=== PATIENT | male | born 1965 | race Caucasian/White ===

== ENCOUNTER 2018-10-07 13:04 | Inpatient (IN) | payer OTHER ==
[2018-10-07 13:23] VITALS: BMI 28.9
--- NOTE | 2018-10-07 14:26 | HP ---
CIWA Score Nausea/Vomitin Muscle Tremors: 3 Anxiety: 4-Mod. Anxious/Guarded Agitation: 1-Slight > Activity Paroxysmal Sweats: No Perspiration Orientation: 0-Oriented Tacttile Disturbances: 0-None Auditory Disturbances: 0-None Visual Disturbances: 2-Mild Sensitivity Headache: 0-None Present CIWA-Ar Total Score: 13 - Admission Criteria OASAS Guidelines: Admission for Medically Managed Detox: Requires at least one of the followin. CIWA greater than 12 2. Seizures within the past 24 hours 3. Delirium tremens within the past 24 hours 4. Hallucinations within the past 24 hours 5. Acute intervention needed for co occurring medical disorder 6. Acute intervention needed for co occurring psychiatric disorder 7. Severe withdrawal that cannot be handled at a lower level of care (continued vomiting, continued diarrhea, abnormal vital signs) requiring intravenous medication and/or fluids 8. Patient presents the following: CIWA greater than 12 Admission Criteria Met: Admission criteria met Admission ROS BHS - HPI Allergies/Adverse Reactions: Allergies Allergy/AdvReac Type Severity Reaction Status Date / Time No Known Allergies Allergy Verified 10/07/18 15:55 History of Present Illness: patient here requesting detox from etoh use reports 10-15 beers/day x almost 2 years , 2-3 pints at times , starts drinking in the mornings , reports uncomfortable if not drinking . denies seizures , + blackouts , + falls while intoxicated most recently 2 mo ago , hit head against wooden table , prior detox " a long time ago " sosa 0.211 latest use this morning tobacco : 1 ppd since age 15 PMHX : htn on no meds , DVT ( takes xarelto sporadically " when I am not drinking " ) Psych : bipolar d/o Pshx : denies - Ebola screening Have you traveled outside of the country in the last 21 days: No Have you had contact with anyone from an Ebola affected area: No Have you been sick,other than usual withdrawal symptoms: No Do you have a fever: No - Review of Systems Constitutional: See HPI EENT: reports: Other (reading glasses , denies dysphagia) Respiratory: reports: No Symptoms reported Cardiac: reports: No Symptoms Reported GI: reports: See HPI : reports: No Symptoms Reported Musculoskeletal: reports: No Symptoms Reported Integumentary: reports: Rash (nito LE) Neuro: reports: See HPI Endocrine: reports: No Symptoms Reported Psychiatric: reports: Orientated x3, other (see HPI) Patient History - Patient Medical History Hx Anemia: No Hx Asthma: No Hx Chronic Obstructive Pulmonary Disease (COPD): No Hx Cancer: No Hx Cardiac Disorders: No Hx Congestive Heart Failure: No Hx Hypertension: Yes Hx Hypercholesterolemia: Yes Hx Pacemaker: No HX Cerebrovascular Accident: No Hx Seizures: No Hx Dementia: No Hx Diabetes: No Hx Gastrointestinal Disorders: No Hx Liver Disease: No Hx Genitourinary Disorders: No Hx Sexually Transmitted Disorders: No Hx Renal Disease (ESRD): No Hx Thyroid Disease: No Hx Human Immunodeficiency Virus (HIV): No Hx Hepatitis C: No Hx Depression: Yes Hx Suicide Attempt: No Hx Bipolar Disorder: Yes Hx Schizophrenia: No - Patient Surgical History Past Surgical History: Yes Hx Neurologic Surgery: No Hx Cataract Extraction: No Hx Cardiac Surgery: No Hx Lung Surgery: No Hx Breast Surgery: No Hx Breast Biopsy: No Hx Abdominal Surgery: No Hx Appendectomy: No Hx Cholecystectomy: No Hx Genitourinary Surgery: No Hx Section: No Hx Orthopedic Surgery: No Other Surgical History: LT. VEIN STRIPPING Anesthesia Reaction: No - PPD History Date: 06/15/15 Results: 0 mm - Smoking Cessation Smoking history: Current every day smoker Have you smoked in the past 12 months: Yes Aproximately how many cigarettes per day: 15 Hx Chewing Tobacco Use: No Initiated information on smoking cessation: No - Substances Abused Alcoholbeer/vodka Route: Oral Frequency: Daily Amount used: 15-20 (40 oz.)/1-2 pts. Age of first use: 15 Date of Last Use: 10/07/18 Marijuana Route: Smoking Frequency: Daily Amount used: $10 Age of first use: 15 Date of Last Use: 10/06/18 Family Disease History - Family Disease History Family Disease History: Diabetes: Father (USED HEROIN ALSO, ), Mother ( STOPPED HEROIN), Other: Grandparent (GF WAS AN ALCOHOLIC) Admission Physical Exam BHS - Vital Signs Vital Signs: Vital Signs - 24 hr 10/07/18 13:12 Temperature 98.3 F Pulse Rate 91 H Respiratory 18 Rate Blood Pressure 149/90 - Physical General Appearance: Yes: Disheveled, Mild Distress, Alcohol on Breath, Intoxicated HEENTM: Yes: Hearing grossly Normal, Normocephalic, Normal Voice Respiratory: Yes: Chest Non-Tender, Lungs Clear, Normal Breath Sounds Neck: Yes: No masses,lesions,Nodules, Trachea in good position Breast: Yes: Breast Exam Deferred Cardiology: Yes: Regular Rhythm, Regular Rate, S1, S2, Tachycardia Abdominal: Yes: Normal Bowel Sounds, Non Tender, Soft Genitourinary: Yes: Within Normal Limits Back: Yes: Normal Inspection Musculoskeletal: Yes: full range of Motion, Gait Steady Extremities: Yes: Normal Capillary Refill, Non-Tender, Other (varicose veins nito LE) Neurological: Yes: Motor Strength 5/5, Normal Mood/Affect Integumentary: Yes: Normal Color, Dry - Diagnostic (1) Alcohol dependence with uncomplicated withdrawal Current Visit: No Status: Acute (2) Cannabis dependence Current Visit: No Status: Chronic (3) Essential hypertension Current Visit: No Status: Chronic (4) Nicotine dependence Current Visit: No Status: Chronic Qualifiers: Nicotine product type: cigarettes BHS Breath Alcohol Content Breath Alcohol Content: 0.211 Urine Drug Screen - Results Drug Screen Negative: No Urine Drug Screen Results: THC-Marijuana
[2018-10-07] MEDS ORDERED: P-EPHED 60MG/TRIPROLIDI 2.5MG TABLET PO PRN (14:41)
[2018-10-07] MEDS ORDERED: guaiFENesin/D-METHORPHAN HB 10 ML UNIT-DOSE CUPS PO PRN (14:41)
[2018-10-07] MEDS ORDERED: ACETAMINOPHEN 325 MG TABLET (FP) PO PRN (14:41)
[2018-10-07] MEDS ORDERED: NICOTINE POLACRILEX 2 MG GUM BC PRN (14:41)
[2018-10-07] MEDS ORDERED: MAGNESIUM HYDROX 2400MG/30ML ORAL SUSPENSION 30 ML CUP PO PRN (14:41)
[2018-10-07] MEDS ORDERED: chlordiazePOXIDE HCL 25 MG CAPSULE PO PRN (14:41)
[2018-10-07] MEDS ORDERED: MAGNESIUM CITRATE 300 ML BOTTLE PO PRN (14:41)
[2018-10-07] MEDS ORDERED: MAG HYDROX/AL HYDROX/SIMETH 30 ML UNIT-DOSE CUP PO PRN (14:41)
[2018-10-07] MEDS ORDERED: MENTHOL/PHENOL 1 EACH UD MM PRN (14:41)
[2018-10-07] MEDS ORDERED: IBUPROFEN 400 MG TABLET (FP) PO PRN (14:41)
[2018-10-07] MEDS: RIVAROXABAN 20 MG TABLET PO SCH (18:27)
[2018-10-07] MEDS ORDERED: MELATONIN 5 MG TABLETS PO PRN (22:00)
[2018-10-07] MEDS: traZODone HCL 50 MG TABLET (FP) PO SCH (22:24)
[2018-10-07] MEDS: THIAMINE HCL 100 MG TABLET (FP) PO SCH (22:24)
[2018-10-07] MEDS: ATORVASTATIN CA 20 MG TABLET (FP) PO SCH (22:24)
[2018-10-07] MEDS: chlordiazePOXIDE HCL 25 MG CAPSULE PO SCH (22:26)
[2018-10-08] MEDS: chlordiazePOXIDE HCL 25 MG CAPSULE PO SCH ×4 (06:00→22:04)
[2018-10-08] MEDS: RAMIPRIL 5 MG CAPSULE (FP) PO SCH (10:25)
[2018-10-08] MEDS: amLODIPine BESYLATE 5 MG TABLET (FP) PO SCH (10:25)
[2018-10-08] MEDS: HYDROCHLOROTHIAZIDE 25 MG TABLET (FP) PO SCH (10:25)
[2018-10-08] MEDS: PRENATAL VITAMINS W/ FOLIC ACID TABLET (FP) PO SCH (10:25)
[2018-10-08] MEDS: PANTOPRAZOLE 40 MG TABLET (FP) PO SCH (10:25)
[2018-10-08 10:38] LABS: ALBUMIN 2.9 g/dl (3.4-5.0); ALK PHOS 81 U/L (45-117); ANION GAP 11 MMOL/L (8-16); BILIRUBIN,TOTAL 0.5 mg/dL (0.2-1); BLOOD UREA NITROGEN 5 mg/dL (7-18); CALCIUM 8.2 mg/dL (8.5-10.1); CHLORIDE 101 mmol/L (98-107); CO2 25 mmol/L (21-32); GLUCOSE,RANDOM 130 mg/dL (74-106); POTASSIUM 3.9 mmol/L (3.5-5.1); SGOT/AST 27 U/L (15-37); SGPT/ALT 28 U/L (13-61); SODIUM 138 mmol/L (136-145); TOT PROT 6.1 g/dl (6.4-8.2)
--- NOTE | 2018-10-08 10:45 | PN ---
[facility] CIWA - CIWA Score Nausea/Vomitin-Mild Nausea/No Vomiting Muscle Tremors: 4-Moderate,w/Arms Extend Anxiety: 4-Mod. Anxious/Guarded Agitation: 4-Moderately Restless Paroxysmal Sweats: 1-Minimal Palms Moist Orientation: 1-Uncertain about Date Tacttile Disturbances: 1-Very Mild Itch/Numbness Auditory Disturbances: 0-None Visual Disturbances: 0-None Headache: 2-Mild CIWA-Ar Total Score: 18 BHS Progress Note (SOAP) Subjective: tremor sweating anxiety restlessness Objective: 10/08/18 10:45 Vital Signs Temperature 97.3 F L 10/08/18 09:10 Pulse Rate 93 H 10/08/18 09:10 Respiratory Rate 20 10/08/18 09:10 Blood Pressure 136/77 10/08/18 09:10 O2 Sat by Pulse Oximetry (%) Laboratory Last Values Sodium 138 mmol/L (136-145) 10/08/18 07:00 Potassium 3.9 mmol/L (3.5-5.1) 10/08/18 07:00 Chloride 101 mmol/L (98-107) 10/08/18 07:00 Carbon Dioxide 25 mmol/L (21-32) 10/08/18 07:00 Anion Gap 11 MMOL/L (8-16) 10/08/18 07:00 BUN 5 mg/dL (7-18) L 10/08/18 07:00 Creatinine 1.0 mg/dL (0.55-1.3) 10/08/18 07:00 Creat Clearance w eGFR > 60 (>60) 10/08/18 07:00 Random Glucose 130 mg/dL (74-106) H 10/08/18 07:00 Calcium 8.2 mg/dL (8.5-10.1) L 10/08/18 07:00 Total Bilirubin 0.5 mg/dL (0.2-1) 10/08/18 07:00 AST 27 U/L (15-37) 10/08/18 07:00 ALT 28 U/L (13-61) 10/08/18 07:00 Alkaline Phosphatase 81 U/L (45-117) 10/08/18 07:00 Total Protein 6.1 g/dl (6.4-8.2) L 10/08/18 07:00 Albumin 2.9 g/dl (3.4-5.0) L 10/08/18 07:00 lab noted 10/08/18 10:47 calcium rich food Assessment: 10/08/18 10:47 withdrawal sx Plan: continue detox
[2018-10-08] MEDS: NICOTINE 21 MG/24 HOURS TOPICAL PATCH TD SCH (10:52)
[2018-10-08 12:17] LABS: HEMATOCRIT 28.9 % (35.4-49); MCH 21.1 pg (25.7-33.7); MCHC 30.9 g/dl (32.0-35.9); MEAN CELL VOLUME 68.1 fl (80-96); MEAN PLT VOLUME 7.6 fl (7.5-11.1); PLATELET COUNT 304 K/MM3 (134-434); RBC 4.25 M/mm3 (4.00-5.60); RDW 22.1 % (11.9-15.9); WHITE BLOOD COUNT 8.1 K/mm3 (4.0-10.0)
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
[2018-10-08] MEDS: buPROPion HCL 100 MG TABLET PO SCH (17:37)
[2018-10-08] MEDS: RIVAROXABAN 20 MG TABLET PO SCH (17:37)
[2018-10-08] MEDS: ATORVASTATIN CA 20 MG TABLET (FP) PO SCH (22:04)
[2018-10-08] MEDS: traZODone HCL 50 MG TABLET (FP) PO SCH (22:04)
[2018-10-08] MEDS: GABAPENTIN 300 MG CAPSULE (FP) PO SCH (22:04)
[2018-10-08] MEDS: THIAMINE HCL 100 MG TABLET (FP) PO SCH (22:04)
[2018-10-08] MEDS: risperiDONE 2 MG TABLET PO SCH (22:04)
[2018-10-09] MEDS: chlordiazePOXIDE HCL 25 MG CAPSULE PO SCH ×3 (05:45→17:40)
--- NOTE | 2018-10-09 09:20 | PN ---
S CIWA - CIWA Score Nausea/Vomitin-Mild Nausea/No Vomiting Muscle Tremors: 3 Anxiety: 2 Agitation: 3 Paroxysmal Sweats: 1-Minimal Palms Moist Orientation: 0-Oriented Tacttile Disturbances: 0-None Auditory Disturbances: 0-None Visual Disturbances: 0-None Headache: 2-Mild CIWA-Ar Total Score: 12 S Progress Note (SOAP) Subjective: tremor sweating restlessness Objective: 10/09/18 09:21 Vital Signs Temperature 97.6 F 10/09/18 09:09 Pulse Rate 113 H 10/09/18 09:09 Respiratory Rate 20 10/09/18 09:09 Blood Pressure 134/86 10/09/18 09:09 O2 Sat by Pulse Oximetry (%) Laboratory Last Values WBC 8.1 K/mm3 (4.0-10.0) 10/08/18 07:00 RBC 4.25 M/mm3 (4.00-5.60) 10/08/18 07:00 Hgb 9.0 GM/dL (11.7-16.9) L 10/08/18 07:00 Hct 28.9 % (35.4-49) L D 10/08/18 07:00 MCV 68.1 fl (80-96) L 10/08/18 07:00 MCH 21.1 pg (25.7-33.7) L D 10/08/18 07:00 MCHC 30.9 g/dl (32.0-35.9) L 10/08/18 07:00 RDW 22.1 % (11.9-15.9) H 10/08/18 07:00 Plt Count 304 K/MM3 (134-434) D 10/08/18 07:00 MPV 7.6 fl (7.5-11.1) D 10/08/18 07:00 Sodium 138 mmol/L (136-145) 10/08/18 07:00 Potassium 3.9 mmol/L (3.5-5.1) 10/08/18 07:00 Chloride 101 mmol/L (98-107) 10/08/18 07:00 Carbon Dioxide 25 mmol/L (21-32) 10/08/18 07:00 Anion Gap 11 MMOL/L (8-16) 10/08/18 07:00 BUN 5 mg/dL (7-18) L 10/08/18 07:00 Creatinine 1.0 mg/dL (0.55-1.3) 10/08/18 07:00 Creat Clearance w eGFR > 60 (>60) 10/08/18 07:00 Random Glucose 130 mg/dL (74-106) H 10/08/18 07:00 Calcium 8.2 mg/dL (8.5-10.1) L 10/08/18 07:00 Total Bilirubin 0.5 mg/dL (0.2-1) 10/08/18 07:00 AST 27 U/L (15-37) 10/08/18 07:00 ALT 28 U/L (13-61) 10/08/18 07:00 Alkaline Phosphatase 81 U/L (45-117) 10/08/18 07:00 Total Protein 6.1 g/dl (6.4-8.2) L 10/08/18 07:00 Albumin 2.9 g/dl (3.4-5.0) L 10/08/18 07:00 RPR Titer Nonreactive (NONREACTIVE) 10/08/18 07:00 HIV 1&2 Antibody Screen Negative 10/08/18 07:00 HIV P24 Antigen Negative 10/08/18 07:00 lab noted Assessment: 10/09/18 09:22 withdrawal sx Plan: continue detox
[2018-10-09] MEDS: NICOTINE 21 MG/24 HOURS TOPICAL PATCH TD SCH (10:02)
[2018-10-09] MEDS: RAMIPRIL 5 MG CAPSULE (FP) PO SCH (10:04)
[2018-10-09] MEDS: PRENATAL VITAMINS W/ FOLIC ACID TABLET (FP) PO SCH (10:05)
[2018-10-09] MEDS: HYDROCHLOROTHIAZIDE 25 MG TABLET (FP) PO SCH (10:05)
[2018-10-09] MEDS: PANTOPRAZOLE 40 MG TABLET (FP) PO SCH (10:05)
[2018-10-09] MEDS: GABAPENTIN 300 MG CAPSULE (FP) PO SCH ×2 (10:05→22:06)
[2018-10-09] MEDS: amLODIPine BESYLATE 5 MG TABLET (FP) PO SCH (10:06)
[2018-10-09] MEDS: buPROPion HCL 100 MG TABLET PO SCH ×2 (10:06→17:40)
[2018-10-09] MEDS: risperiDONE 2 MG TABLET PO SCH ×2 (10:06→22:06)
[2018-10-09] MEDS: RIVAROXABAN 20 MG TABLET PO SCH (17:40)
[2018-10-09] MEDS: ATORVASTATIN CA 20 MG TABLET (FP) PO SCH (22:06)
[2018-10-09] MEDS: traZODone HCL 50 MG TABLET (FP) PO SCH (22:06)
[2018-10-09] MEDS: chlordiazePOXIDE 5 MG CAPSULE PO SCH (22:06)
[2018-10-09] MEDS: THIAMINE HCL 100 MG TABLET (FP) PO SCH (22:06)
[2018-10-10] MEDS: chlordiazePOXIDE 5 MG CAPSULE PO SCH ×3 (05:20→17:39)
[2018-10-10] MEDS: amLODIPine BESYLATE 5 MG TABLET (FP) PO SCH (10:15)
[2018-10-10] MEDS: PRENATAL VITAMINS W/ FOLIC ACID TABLET (FP) PO SCH (10:15)
[2018-10-10] MEDS: risperiDONE 2 MG TABLET PO SCH ×2 (10:15→22:24)
[2018-10-10] MEDS: PANTOPRAZOLE 40 MG TABLET (FP) PO SCH (10:15)
[2018-10-10] MEDS: HYDROCHLOROTHIAZIDE 25 MG TABLET (FP) PO SCH (10:15)
[2018-10-10] MEDS: GABAPENTIN 300 MG CAPSULE (FP) PO SCH ×2 (10:15→22:23)
[2018-10-10] MEDS: traZODone HCL 50 MG TABLET (FP) PO SCH (10:25)
[2018-10-10] MEDS: buPROPion HCL 100 MG TABLET PO SCH ×2 (10:41→17:39)
[2018-10-10] MEDS: NICOTINE 21 MG/24 HOURS TOPICAL PATCH TD SCH (10:41)
[2018-10-10] MEDS: RAMIPRIL 5 MG CAPSULE (FP) PO SCH (11:01)
--- NOTE | 2018-10-10 16:09 | PN ---
S Progress Note (SOAP) Subjective: Sweating, Fatigue, Tremors. Objective: PATIENT A & O X 3, OBSERVED AMBULATING ON UNIT. IN NO ACUTE DISTRESS. 10/10/18 16:07 Vital Signs Temperature 98.9 F 10/10/18 13:09 Pulse Rate 104 H 10/10/18 13:09 Respiratory Rate 18 10/10/18 13:09 Blood Pressure 137/88 10/10/18 13:09 O2 Sat by Pulse Oximetry (%) Laboratory Tests 10/08/18 10/08/18 10/08/18 07:00 07:00 07:00 WBC 8.1 RBC 4.25 Hgb 9.0 L Hct 28.9 L D MCV 68.1 L MCH 21.1 L D MCHC 30.9 L RDW 22.1 H Plt Count 304 D MPV 7.6 D Sodium 138 Potassium 3.9 Chloride 101 Carbon Dioxide 25 Anion Gap 11 BUN 5 L Creatinine 1.0 Creat Clearance w eGFR > 60 Random Glucose 130 H Calcium 8.2 L Total Bilirubin 0.5 AST 27 ALT 28 Alkaline Phosphatase 81 Total Protein 6.1 L Albumin 2.9 L RPR Titer Nonreactive HIV 1&2 Antibody Screen HIV P24 Antigen 10/08/18 07:00 WBC RBC Hgb Hct MCV MCH MCHC RDW Plt Count MPV Sodium Potassium Chloride Carbon Dioxide Anion Gap BUN Creatinine Creat Clearance w eGFR Random Glucose Calcium Total Bilirubin AST ALT Alkaline Phosphatase Total Protein Albumin RPR Titer HIV 1&2 Antibody Screen Negative HIV P24 Antigen Negative LABS NOTED. Assessment: 10/10/18 16:08 WITHDRAWAL SYMPTOMS. MICROCYTIC ANEMIA. 10/10/18 16:10 Plan: CONTINUE DETOX. FEOSOL, 325 MG TIDWM. PATIENT SCHEDULED FOR D/C TOMORROW .
[2018-10-10] MEDS: FERROUS SO4 325 MG TABLET (FP) PO SCH (17:39)
[2018-10-10] MEDS: RIVAROXABAN 20 MG TABLET PO SCH (17:39)
[2018-10-10] MEDS: ATORVASTATIN CA 20 MG TABLET (FP) PO SCH (22:23)
[2018-10-10] MEDS: chlordiazePOXIDE HCL 10 MG CAPSULE PO SCH (22:23)
[2018-10-10] MEDS: THIAMINE HCL 100 MG TABLET (FP) PO SCH (22:23)
[2018-10-11] MEDS: chlordiazePOXIDE HCL 10 MG CAPSULE PO SCH (05:21)
[2018-10-11 06:08] VITALS: BP 113/70; PULSE 84; TEMP 97
[2018-10-11] MEDS: FERROUS SO4 325 MG TABLET (FP) PO SCH (07:28)
--- NOTE | 2018-10-11 19:54 | DS ---
[facility] Detox Discharge Summary Admission Date: 10/07/18 Discharge Date: 10/11/18 - History Present History: Alcohol Dependence, Cannabis Dependence Additional Comments: PATIENT REFERRED TO [facility] ([place], [place]) FOR AFTERCARE AND [facility] ([place], [place]) FOR HOUSING. PATIENT WAS DISCHARGED FROM DETOX UNIT IN STABLE MEDICAL CONDITION. Pertinent Past History: HTN, Hypercholesterolemia, Nicotine Dependence, Bipolar II Disorder, G.E.R.D., History of Depression. - Physical Exam Results Vital Signs: Vital Signs Temperature 97 F L 10/11/18 06:08 Pulse Rate 84 10/11/18 06:08 Respiratory Rate 18 10/11/18 06:08 Blood Pressure 113/70 10/11/18 06:08 O2 Sat by Pulse Oximetry (%) Pertinent Admission Physical Exam Findings: WITHDRAWAL SYMPTOMS. Laboratory Tests 10/08/18 10/08/18 10/08/18 07:00 07:00 07:00 WBC 8.1 RBC 4.25 Hgb 9.0 L Hct 28.9 L D MCV 68.1 L MCH 21.1 L D MCHC 30.9 L RDW 22.1 H Plt Count 304 D MPV 7.6 D Sodium 138 Potassium 3.9 Chloride 101 Carbon Dioxide 25 Anion Gap 11 BUN 5 L Creatinine 1.0 Creat Clearance w eGFR > 60 Random Glucose 130 H Calcium 8.2 L Total Bilirubin 0.5 AST 27 ALT 28 Alkaline Phosphatase 81 Total Protein 6.1 L Albumin 2.9 L RPR Titer Nonreactive HIV 1&2 Antibody Screen HIV P24 Antigen 10/08/18 07:00 WBC RBC Hgb Hct MCV MCH MCHC RDW Plt Count MPV Sodium Potassium Chloride Carbon Dioxide Anion Gap BUN Creatinine Creat Clearance w eGFR Random Glucose Calcium Total Bilirubin AST ALT Alkaline Phosphatase Total Protein Albumin RPR Titer HIV 1&2 Antibody Screen Negative HIV P24 Antigen Negative LABS NOTED. - Treatment Hospital Course: Detox Protocol Followed, Detoxed Safely, Responded well, Discharged Condition Good Patient has Accepted a Rehab Referral to: [facility] ([place], [place]); [place], [place] - Medication Discharge Medications: Ambulatory Orders Gabapentin 300 mg PO BID #60 capsule 01/18/14 Benztropine Mesylate [Cogentin -] 0.5 mg PO BID #60 tablet 06/14/15 Bupropion HCl [Wellbutrin -] 100 mg PO BID #60 tablet 06/14/15 Multivitamins [Multivit ([facility] Formulary)] 1 tab PO DAILY 10/07/18 Risperidone [Risperdal -] 2 mg PO BID 10/07/18 Rivaroxaban [Xarelto -] 20 mg PO DAILY 10/07/18 traZODone HCL [Trazodone HCl] 100 mg PO HS 10/07/18 - Diagnosis (1) Alcohol dependence with uncomplicated withdrawal Status: Acute (2) Bipolar II disorder Status: Chronic (3) Cannabis dependence Status: Chronic (4) Essential hypertension Status: Chronic (5) Gastroesophageal reflux disease Status: Chronic Qualifiers: Esophagitis presence: esophagitis presence not specified Qualified Code(s) : K21.9 - Gastro-esophageal reflux disease without esophagitis (6) Hypercholesterolemia Status: Chronic (7) Nicotine dependence Status: Chronic Qualifiers: Nicotine product type: cigarettes Substance use status: uncomplicated Qualified Code(s): F17.210 - Nicotine dependence, cigarettes, uncomplicated - AMA Did Patient Leave Against Medical Advice: No
== END 2018-10-11 09:00 | disposition home or self-care (01) | DRG 775 ==
LOC: YASAS 13:04 → Y3N 16:36
PROVIDERS: ADMIT Neuromusculoskeletal Medicine & OMM; ATTEND Neuromusculoskeletal Medicine & OMM
PROC: HZ2ZZZZ Detoxification Services for Substance Abuse Treatment (ICD-10-PCS; principal; 2018-10-07)
DX: F10.230 Alcohol dependence with withdrawal, uncomplicated (principal); F10.220 Alcohol dependence with intoxication, uncomplicated; F12.20 Cannabis dependence, uncomplicated; F17.210 Nicotine dependence, cigarettes, uncomplicated; F31.81 Bipolar II disorder; I10 Essential (primary) hypertension; K21.9 Gastro-esophageal reflux disease without esophagitis; E78.00 Pure hypercholesterolemia, unspecified; D50.9 Iron deficiency anemia, unspecified; R00.0 Tachycardia, unspecified; Z86.718 Personal history of other venous thrombosis and embolism
CPT/HCPCS: 36415; 80053; 85027; 86593; 87389

== ENCOUNTER 2021-04-05 15:34 | Inpatient (IN) | payer OTHER ==
[2021-04-05 19:27] VITALS: BMI 29.7
[2021-04-05] MEDS ORDERED: NICOTINE POLACRILEX 2 MG GUM BUC PRN (19:49)
[2021-04-05] MEDS ORDERED: MAGNESIUM HYDROX 2400MG/30ML ORAL SUSPENSION 30 ML CUP PO PRN (19:49)
[2021-04-05] MEDS ORDERED: LORazepam 2 MG TABLET PO ONE (19:49)
[2021-04-05] MEDS ORDERED: MENTHOL/PHENOL 1 EACH UD MM PRN (19:49)
[2021-04-05] MEDS ORDERED: ONDANSETRON *ODT* 4 MG TABLET SL PRN (19:49)
[2021-04-05] MEDS ORDERED: MAGNESIUM CITRATE 300 ML BOTTLE PO PRN (19:49)
[2021-04-05] MEDS ORDERED: METHOCARBAMOL 500 MG TABLET PO PRN (19:49)
[2021-04-05] MEDS ORDERED: BISMUTH SUBSALICYLATE 524 MG/30 ML PO PRN (19:49)
[2021-04-05] MEDS ORDERED: ACETAMINOPHEN 325 MG TABLET (FP) PO PRN ×2 (19:49)
[2021-04-05] MEDS ORDERED: MAG HYDROX/AL HYDROX/SIMETH 30 ML UNIT-DOSE CUP PO PRN (19:49)
[2021-04-05] MEDS ORDERED: LORazepam 1 MG TABLET PO PRN (19:49)
[2021-04-05] MEDS ORDERED: IBUPROFEN 400 MG TABLET (FP) PO PRN (19:49)
[2021-04-05] MEDS: THIAMINE HCL 100 MG TABLET (FP) PO SCH (21:46)
[2021-04-05] MEDS: GABAPENTIN 300 MG CAPSULE PO SCH (21:46)
[2021-04-05] MEDS: hydrOXYzine PAMOATE 25 MG CAPSULE (FP) PO SCH (21:46)
[2021-04-05] MEDS: MELATONIN 5 MG TABLETS PO SCH (21:46)
[2021-04-06] MEDS: LORazepam 2 MG TABLET PO SCH ×5 (00:04→22:28)
[2021-04-06] MEDS: hydrOXYzine PAMOATE 25 MG CAPSULE (FP) PO SCH ×2 (05:42→10:17)
[2021-04-06] MEDS: GABAPENTIN 300 MG CAPSULE PO SCH ×2 (10:17→22:30)
[2021-04-06 10:34] LABS: HEMATOCRIT 46.5 % (35.4-49); HEMOGLOBIN 16.1 GM/dL (11.7-16.9); MCH 32.6 pg (25.7-33.7); MCHC 34.6 g/dl (32.0-35.9); MEAN CELL VOLUME 94.1 fl (80-96); MEAN PLT VOLUME 8.3 fl (7.5-11.1); PLATELET COUNT 219 10^3/uL (134-434); RBC 4.94 M/mm3 (4.00-5.60); RDW 13.8 % (11.9-15.9); WHITE BLOOD COUNT 10.6 K/mm3 (4.0-10.0)
[2021-04-06] MEDS: PRENATAL VITAMINS W/ FOLIC ACID TABLET (FP) PO SCH (11:12)
[2021-04-06 11:37] LABS: CALCIUM 9.1 mg/dL (8.5-10.1)
[2021-04-06 11:38] LABS: BLOOD UREA NITROGEN 10.7 mg/dL (7-18)
[2021-04-06 11:41] LABS: CREATININE 0.8 mg/dL (0.55-1.3)
[2021-04-06 11:42] LABS: BILIRUBIN,TOTAL 1.1 mg/dL (0.2-1); TOT PROT 7.5 g/dl (6.4-8.2)
[2021-04-06] MEDS ORDERED: hydrOXYzine PAMOATE 25 MG CAPSULE (FP) PO PRN (13:12)
[2021-04-06] MEDS: amLODIPine BESYLATE 5 MG TABLET (FP) PO SCH (15:23)
[2021-04-06] MEDS: THIAMINE HCL 100 MG TABLET (FP) PO SCH (22:29)
[2021-04-06] MEDS: traZODone HCL 100 MG TABLET (FP) PO SCH (22:30)
[2021-04-06] MEDS: risperiDONE 1 MG TABLET PO SCH (22:30)
[2021-04-06] MEDS: MELATONIN 5 MG TABLETS PO SCH (22:30)
[2021-04-06] MEDS: BENZTROPINE MESYLATE 0.5 MG TABLET (FP) PO SCH (22:31)
[2021-04-07] MEDS: LORazepam 1 MG TABLET PO SCH ×4 (05:59→22:42)
[2021-04-07] MEDS ORDERED: buPROPion HCL 100 MG TABLET PO SCH (10:00)
[2021-04-07] MEDS: risperiDONE 1 MG TABLET PO SCH ×2 (10:15→22:40)
[2021-04-07] MEDS: GABAPENTIN 300 MG CAPSULE PO SCH ×2 (10:15→22:39)
[2021-04-07] MEDS: amLODIPine BESYLATE 5 MG TABLET (FP) PO SCH (10:15)
[2021-04-07] MEDS: HYDROCHLOROTHIAZIDE 25 MG TABLET (FP) PO SCH (10:15)
[2021-04-07] MEDS: RIVAROXABAN 20 MG TABLET PO SCH (10:15)
[2021-04-07] MEDS: PRENATAL VITAMINS W/ FOLIC ACID TABLET (FP) PO SCH (10:16)
[2021-04-07] MEDS: BENZTROPINE MESYLATE 0.5 MG TABLET (FP) PO SCH (10:16)
[2021-04-07] MEDS ORDERED: NICOTINE 10 MG CARTRIDGE (INHALER) IH PRN (10:16)
[2021-04-07] MEDS: BENZTROPINE MESYLATE 1 MG TABLET PO SCH ×2 (10:17→22:39)
[2021-04-07] MEDS: RAMIPRIL 5 MG CAPSULE PO SCH (10:17)
[2021-04-07] MEDS: NICOTINE 21 MG/24 HOURS TOPICAL PATCH TD SCH (10:38)
[2021-04-07] MEDS: MELATONIN 5 MG TABLETS PO SCH (22:40)
[2021-04-07] MEDS: traZODone HCL 100 MG TABLET (FP) PO SCH (22:40)
[2021-04-07] MEDS: THIAMINE HCL 100 MG TABLET (FP) PO SCH (22:40)
[2021-04-08] MEDS ORDERED: LORazepam 0.5 MG TABLET PO PRN
[2021-04-08] MEDS: LORazepam 0.5 MG TABLET PO SCH ×4 (06:03→22:11)
[2021-04-08] MEDS: RAMIPRIL 5 MG CAPSULE PO SCH (10:05)
[2021-04-08] MEDS: BENZTROPINE MESYLATE 1 MG TABLET PO SCH ×2 (10:06→22:12)
[2021-04-08] MEDS: HYDROCHLOROTHIAZIDE 25 MG TABLET (FP) PO SCH (10:06)
[2021-04-08] MEDS: GABAPENTIN 300 MG CAPSULE PO SCH ×2 (10:07→22:13)
[2021-04-08] MEDS: amLODIPine BESYLATE 5 MG TABLET (FP) PO SCH (10:07)
[2021-04-08] MEDS: PRENATAL VITAMINS W/ FOLIC ACID TABLET (FP) PO SCH (10:07)
[2021-04-08] MEDS: risperiDONE 1 MG TABLET PO SCH ×2 (10:07→22:12)
[2021-04-08] MEDS: NICOTINE 21 MG/24 HOURS TOPICAL PATCH TD SCH (10:09)
[2021-04-08] MEDS: RIVAROXABAN 20 MG TABLET PO SCH (10:12)
[2021-04-08] MEDS: THIAMINE HCL 100 MG TABLET (FP) PO SCH (22:11)
[2021-04-08] MEDS: traZODone HCL 100 MG TABLET (FP) PO SCH (22:11)
[2021-04-08] MEDS: MELATONIN 5 MG TABLETS PO SCH (22:13)
[2021-04-09] MEDS ORDERED: LORazepam 0.5 MG TABLET PO ONE (05:00)
[2021-04-09 09:12] VITALS: BP 140/83; PULSE 87; TEMP 96.9
[2021-04-09] MEDS: amLODIPine BESYLATE 5 MG TABLET (FP) PO SCH (10:15)
[2021-04-09] MEDS: GABAPENTIN 300 MG CAPSULE PO SCH (10:15)
[2021-04-09] MEDS: RAMIPRIL 5 MG CAPSULE PO SCH (10:15)
[2021-04-09] MEDS: BENZTROPINE MESYLATE 1 MG TABLET PO SCH (10:15)
[2021-04-09] MEDS: HYDROCHLOROTHIAZIDE 25 MG TABLET (FP) PO SCH (10:15)
[2021-04-09] MEDS: PRENATAL VITAMINS W/ FOLIC ACID TABLET (FP) PO SCH (10:16)
[2021-04-09] MEDS: RIVAROXABAN 20 MG TABLET PO SCH (10:17)
[2021-04-09] MEDS: NICOTINE 21 MG/24 HOURS TOPICAL PATCH TD SCH (10:18)
[2021-04-09] MEDS: risperiDONE 1 MG TABLET PO SCH (11:39)
== END 2021-04-09 11:55 | disposition other institution (70) | DRG 775 ==
LOC: YASAS 15:34 → Y3N 20:13
PROVIDERS: ADMIT Allergy & Immunology; ATTEND Allergy & Immunology
PROC: HZ2ZZZZ Detoxification Services for Substance Abuse Treatment (ICD-10-PCS; principal; 2021-04-05)
DX: F10.230 Alcohol dependence with withdrawal, uncomplicated (principal); F12.20 Cannabis dependence, uncomplicated; F17.210 Nicotine dependence, cigarettes, uncomplicated; F31.9 Bipolar disorder, unspecified; F19.24 Other psychoactive substance dependence with psychoactive substance-induced mood disorder; I10 Essential (primary) hypertension; D72.829 Elevated white blood cell count, unspecified; K21.9 Gastro-esophageal reflux disease without esophagitis; G47.00 Insomnia, unspecified; Z86.19 Personal history of other infectious and parasitic diseases; Z56.0 Unemployment, unspecified; Z86.718 Personal history of other venous thrombosis and embolism
CPT/HCPCS: 36415; 80053; 85027; 86780; C9803; J2794; Q0162; U0003; U0005

== ENCOUNTER 2021-04-09 11:57 | Inpatient (IN) | payer OTHER ==
[2021-04-09] MEDS ORDERED: PNEUMOC 13-VAL CONJ-DIP CRM/PF 0.5 ML DISP.SYRIN IM ONE (12:39)
[2021-04-09] MEDS ORDERED: ACETAMINOPHEN 325 MG TABLET (FP) PO PRN (12:47)
[2021-04-09] MEDS ORDERED: IBUPROFEN 400 MG TABLET (FP) PO PRN (12:47)
[2021-04-09] MEDS ORDERED: LOPERAMIDE HCL 2 MG CAPSULE PO PRN (12:47)
[2021-04-09] MEDS ORDERED: MAGNESIUM HYDROX 2400MG/30ML ORAL SUSPENSION 30 ML CUP PO PRN (12:47)
[2021-04-09] MEDS ORDERED: MENTHOL/PHENOL 1 EACH UD MM PRN (12:47)
[2021-04-09] MEDS ORDERED: guaiFENesin 200 MG/10 ML 10 ML UNIT-DOSE CUPS PO PRN (12:47)
[2021-04-09] MEDS ORDERED: MAGNESIUM CITRATE 300 ML BOTTLE PO PRN (12:47)
[2021-04-09] MEDS ORDERED: P-EPHED 60MG/TRIPROLIDI 2.5MG TABLET PO PRN (12:47)
[2021-04-09] MEDS: BENZTROPINE MESYLATE 0.5 MG TABLET (FP) PO SCH (21:28)
[2021-04-09] MEDS: THIAMINE HCL 100 MG TABLET (FP) PO SCH (21:30)
[2021-04-09] MEDS: MELATONIN 5 MG TABLETS PO SCH (21:30)
[2021-04-09] MEDS: GABAPENTIN 300 MG CAPSULE PO SCH (21:30)
[2021-04-09] MEDS: risperiDONE 1 MG TABLET PO SCH (21:30)
[2021-04-09] MEDS ORDERED: traZODone HCL 100 MG TABLET (FP) PO SCH (22:00)
[2021-04-10] MEDS: hydrOXYzine PAMOATE 25 MG CAPSULE (FP) PO PRN ×2 (02:21→09:26)
[2021-04-10] MEDS: NICOTINE 21 MG/24 HOURS TOPICAL PATCH TD SCH (09:26)
[2021-04-10] MEDS: risperiDONE 1 MG TABLET PO SCH (09:26)
[2021-04-10] MEDS: GABAPENTIN 300 MG CAPSULE PO SCH ×2 (09:26→21:15)
[2021-04-10] MEDS: amLODIPine BESYLATE 5 MG TABLET (FP) PO SCH (09:26)
[2021-04-10] MEDS: PRENATAL VITAMINS W/ FOLIC ACID TABLET (FP) PO SCH (09:26)
[2021-04-10] MEDS: MAG HYDROX/AL HYDROX/SIMETH 30 ML UNIT-DOSE CUP PO PRN (09:27)
[2021-04-10] MEDS: BENZTROPINE MESYLATE 0.5 MG TABLET (FP) PO SCH ×2 (09:27→21:15)
[2021-04-10] MEDS: RAMIPRIL 5 MG CAPSULE PO SCH (10:53)
[2021-04-10] MEDS ORDERED: PNEUMOCOCCAL 23 VACCINE 0.5 ML VIAL IM ONE (12:00)
[2021-04-10 12:08] LABS: HIV INTERPRETATION NEGATIVE (NEGATIVE)
[2021-04-10] MEDS: RIVAROXABAN 10 MG TABLET PO SCH (17:36)
[2021-04-10] MEDS: THIAMINE HCL 100 MG TABLET (FP) PO SCH (21:15)
[2021-04-10] MEDS: traZODone HCL 50 MG TABLET (FP) PO SCH (21:15)
[2021-04-10] MEDS: MELATONIN 5 MG TABLETS PO SCH (21:15)
[2021-04-10] MEDS: risperiDONE 2 MG TABLET PO SCH (21:16)
[2021-04-11] MEDS: PRENATAL VITAMINS W/ FOLIC ACID TABLET (FP) PO SCH (09:47)
[2021-04-11] MEDS: GABAPENTIN 300 MG CAPSULE PO SCH ×2 (09:48→21:20)
[2021-04-11] MEDS: BENZTROPINE MESYLATE 0.5 MG TABLET (FP) PO SCH ×2 (09:48→21:20)
[2021-04-11] MEDS: RAMIPRIL 5 MG CAPSULE PO SCH (09:48)
[2021-04-11] MEDS: risperiDONE 2 MG TABLET PO SCH ×2 (09:48→21:20)
[2021-04-11] MEDS: NICOTINE 21 MG/24 HOURS TOPICAL PATCH TD SCH (09:48)
[2021-04-11] MEDS: amLODIPine BESYLATE 5 MG TABLET (FP) PO SCH (09:48)
[2021-04-11] MEDS: MAG HYDROX/AL HYDROX/SIMETH 30 ML UNIT-DOSE CUP PO PRN ×2 (09:51→14:56)
[2021-04-11] MEDS: NICOTINE 10 MG CARTRIDGE (INHALER) IH PRN (09:52)
[2021-04-11] MEDS: RIVAROXABAN 10 MG TABLET PO SCH (18:50)
[2021-04-11] MEDS: MELATONIN 5 MG TABLETS PO SCH (21:20)
[2021-04-11] MEDS: THIAMINE HCL 100 MG TABLET (FP) PO SCH (21:20)
[2021-04-11] MEDS: traZODone HCL 50 MG TABLET (FP) PO SCH (21:20)
[2021-04-12] MEDS: NICOTINE 21 MG/24 HOURS TOPICAL PATCH TD SCH (09:39)
[2021-04-12] MEDS: PRENATAL VITAMINS W/ FOLIC ACID TABLET (FP) PO SCH (09:40)
[2021-04-12] MEDS: RAMIPRIL 5 MG CAPSULE PO SCH (09:40)
[2021-04-12] MEDS: BENZTROPINE MESYLATE 0.5 MG TABLET (FP) PO SCH ×2 (09:40→21:01)
[2021-04-12] MEDS: risperiDONE 2 MG TABLET PO SCH ×2 (09:40→21:01)
[2021-04-12] MEDS: GABAPENTIN 300 MG CAPSULE PO SCH ×2 (09:40→21:01)
[2021-04-12] MEDS: MAG HYDROX/AL HYDROX/SIMETH 30 ML UNIT-DOSE CUP PO PRN (09:40)
[2021-04-12] MEDS: amLODIPine BESYLATE 5 MG TABLET (FP) PO SCH (09:40)
[2021-04-12] MEDS: RIVAROXABAN 10 MG TABLET PO SCH (18:12)
[2021-04-12] MEDS: MELATONIN 5 MG TABLETS PO SCH (21:01)
[2021-04-12] MEDS: THIAMINE HCL 100 MG TABLET (FP) PO SCH (21:01)
[2021-04-12] MEDS: traZODone HCL 50 MG TABLET (FP) PO SCH (21:01)
[2021-04-13] MEDS: MAG HYDROX/AL HYDROX/SIMETH 30 ML UNIT-DOSE CUP PO PRN (06:14)
[2021-04-13] MEDS: NICOTINE 21 MG/24 HOURS TOPICAL PATCH TD SCH (10:06)
[2021-04-13] MEDS: amLODIPine BESYLATE 5 MG TABLET (FP) PO SCH (10:06)
[2021-04-13] MEDS: PRENATAL VITAMINS W/ FOLIC ACID TABLET (FP) PO SCH (10:06)
[2021-04-13] MEDS: risperiDONE 2 MG TABLET PO SCH ×2 (10:06→21:36)
[2021-04-13] MEDS: GABAPENTIN 300 MG CAPSULE PO SCH ×2 (10:06→21:36)
[2021-04-13] MEDS: RAMIPRIL 5 MG CAPSULE PO SCH (10:07)
[2021-04-13] MEDS: NICOTINE 10 MG CARTRIDGE (INHALER) IH PRN (10:07)
[2021-04-13] MEDS: BENZTROPINE MESYLATE 0.5 MG TABLET (FP) PO SCH ×2 (10:07→21:36)
[2021-04-13] MEDS: RIVAROXABAN 10 MG TABLET PO SCH (17:41)
[2021-04-13] MEDS: MELATONIN 5 MG TABLETS PO SCH (21:37)
[2021-04-13] MEDS: traZODone HCL 50 MG TABLET (FP) PO SCH (21:37)
[2021-04-13] MEDS: THIAMINE HCL 100 MG TABLET (FP) PO SCH (21:37)
[2021-04-14] MEDS: hydrOXYzine PAMOATE 25 MG CAPSULE (FP) PO PRN ×2 (01:57→09:41)
[2021-04-14] MEDS: risperiDONE 2 MG TABLET PO SCH (09:41)
[2021-04-14] MEDS: amLODIPine BESYLATE 5 MG TABLET (FP) PO SCH (09:41)
[2021-04-14] MEDS: BENZTROPINE MESYLATE 0.5 MG TABLET (FP) PO SCH (09:41)
[2021-04-14] MEDS: GABAPENTIN 300 MG CAPSULE PO SCH ×2 (09:41→21:37)
[2021-04-14] MEDS: PRENATAL VITAMINS W/ FOLIC ACID TABLET (FP) PO SCH (09:41)
[2021-04-14] MEDS: NICOTINE 10 MG CARTRIDGE (INHALER) IH PRN (09:42)
[2021-04-14] MEDS: RAMIPRIL 5 MG CAPSULE PO SCH (09:42)
[2021-04-14] MEDS: NICOTINE 21 MG/24 HOURS TOPICAL PATCH TD SCH (09:42)
[2021-04-14] MEDS: MAG HYDROX/AL HYDROX/SIMETH 30 ML UNIT-DOSE CUP PO PRN (14:53)
[2021-04-14] MEDS: RIVAROXABAN 10 MG TABLET PO SCH (17:57)
[2021-04-14] MEDS: traZODone HCL 50 MG TABLET (FP) PO SCH (21:37)
[2021-04-14] MEDS: THIAMINE HCL 100 MG TABLET (FP) PO SCH (21:37)
[2021-04-14] MEDS: MELATONIN 5 MG TABLETS PO SCH (21:37)
[2021-04-15] MEDS: RAMIPRIL 5 MG CAPSULE PO SCH (10:25)
[2021-04-15] MEDS: amLODIPine BESYLATE 5 MG TABLET (FP) PO SCH (10:25)
[2021-04-15] MEDS: NICOTINE 10 MG CARTRIDGE (INHALER) IH PRN (10:25)
[2021-04-15] MEDS: PRENATAL VITAMINS W/ FOLIC ACID TABLET (FP) PO SCH (10:25)
[2021-04-15] MEDS: GABAPENTIN 300 MG CAPSULE PO SCH ×2 (10:25→21:33)
[2021-04-15] MEDS: NICOTINE 21 MG/24 HOURS TOPICAL PATCH TD SCH (10:25)
[2021-04-15] MEDS: RIVAROXABAN 10 MG TABLET PO SCH (18:25)
[2021-04-15] MEDS: THIAMINE HCL 100 MG TABLET (FP) PO SCH (21:32)
[2021-04-15] MEDS: MELATONIN 5 MG TABLETS PO SCH (21:32)
[2021-04-15] MEDS: risperiDONE 2 MG TABLET PO SCH (21:33)
[2021-04-15] MEDS: traZODone HCL 50 MG TABLET (FP) PO SCH (21:33)
[2021-04-16] MEDS: amLODIPine BESYLATE 5 MG TABLET (FP) PO SCH (09:45)
[2021-04-16] MEDS: NICOTINE 21 MG/24 HOURS TOPICAL PATCH TD SCH (09:45)
[2021-04-16] MEDS: GABAPENTIN 300 MG CAPSULE PO SCH ×2 (09:45→21:04)
[2021-04-16] MEDS: RAMIPRIL 5 MG CAPSULE PO SCH (09:45)
[2021-04-16] MEDS: PRENATAL VITAMINS W/ FOLIC ACID TABLET (FP) PO SCH (09:45)
[2021-04-16] MEDS: NICOTINE 10 MG CARTRIDGE (INHALER) IH PRN ×3 (09:46→21:04)
[2021-04-16] MEDS: RIVAROXABAN 10 MG TABLET PO SCH (17:30)
[2021-04-16] MEDS: THIAMINE HCL 100 MG TABLET (FP) PO SCH (21:04)
[2021-04-16] MEDS: traZODone HCL 50 MG TABLET (FP) PO SCH (21:04)
[2021-04-16] MEDS: MELATONIN 5 MG TABLETS PO SCH (21:04)
[2021-04-16] MEDS: risperiDONE 2 MG TABLET PO SCH (21:04)
[2021-04-17] MEDS: NICOTINE 10 MG CARTRIDGE (INHALER) IH PRN ×4 (06:14→22:09)
[2021-04-17] MEDS: PRENATAL VITAMINS W/ FOLIC ACID TABLET (FP) PO SCH (10:29)
[2021-04-17] MEDS: GABAPENTIN 300 MG CAPSULE PO SCH ×2 (10:29→21:40)
[2021-04-17] MEDS: RAMIPRIL 5 MG CAPSULE PO SCH (10:29)
[2021-04-17] MEDS: amLODIPine BESYLATE 5 MG TABLET (FP) PO SCH (10:29)
[2021-04-17] MEDS: NICOTINE 21 MG/24 HOURS TOPICAL PATCH TD SCH (10:29)
[2021-04-17] MEDS: RIVAROXABAN 10 MG TABLET PO SCH (17:55)
[2021-04-17] MEDS: traZODone HCL 50 MG TABLET (FP) PO SCH (21:41)
[2021-04-17] MEDS: THIAMINE HCL 100 MG TABLET (FP) PO SCH (21:41)
[2021-04-17] MEDS: risperiDONE 2 MG TABLET PO SCH (21:41)
[2021-04-17] MEDS: MELATONIN 5 MG TABLETS PO SCH (21:42)
[2021-04-18] MEDS: NICOTINE 10 MG CARTRIDGE (INHALER) IH PRN ×4 (06:35→21:12)
[2021-04-18] MEDS: GABAPENTIN 300 MG CAPSULE PO SCH ×2 (09:35→21:11)
[2021-04-18] MEDS: NICOTINE 21 MG/24 HOURS TOPICAL PATCH TD SCH (09:35)
[2021-04-18] MEDS: amLODIPine BESYLATE 5 MG TABLET (FP) PO SCH (09:36)
[2021-04-18] MEDS: PRENATAL VITAMINS W/ FOLIC ACID TABLET (FP) PO SCH (09:36)
[2021-04-18] MEDS: RAMIPRIL 5 MG CAPSULE PO SCH (09:38)
[2021-04-18] MEDS ORDERED: PT OWN MED DRAWER 7, Y5N ONE ×3 (09:39→21:52)
[2021-04-18 17:21] LABS: PH,URINE 5.5 (5.0-8.0); URINE APPEARANCE CLEAR; URINE BILIRUBIN NEGATIVE (NEGATIVE); URINE COLOR YELLOW; URINE GLUCOSE (UA) NEGATIVE (NEGATIVE); URINE KETONE NEGATIVE (NEGATIVE); URINE LEUK ESTERASE NEGATIVE (NEGATIVE); URINE NITRITE NEGATIVE (NEGATIVE); URINE PROTEIN NEGATIVE (NEGATIVE); URINE UROBILINOGEN 0.2 mg/dL (0.2-1.0)
[2021-04-18] MEDS: RIVAROXABAN 10 MG TABLET PO SCH (17:41)
[2021-04-18] MEDS: traZODone HCL 50 MG TABLET (FP) PO SCH (21:10)
[2021-04-18] MEDS: THIAMINE HCL 100 MG TABLET (FP) PO SCH (21:10)
[2021-04-18] MEDS: MELATONIN 5 MG TABLETS PO SCH (21:10)
[2021-04-18] MEDS: risperiDONE 2 MG TABLET PO SCH (21:11)
[2021-04-19] MEDS: NICOTINE 10 MG CARTRIDGE (INHALER) IH PRN ×4 (05:56→22:03)
[2021-04-19] MEDS: amLODIPine BESYLATE 5 MG TABLET (FP) PO SCH (10:46)
[2021-04-19] MEDS: GABAPENTIN 300 MG CAPSULE PO SCH ×2 (10:46→22:02)
[2021-04-19] MEDS: PRENATAL VITAMINS W/ FOLIC ACID TABLET (FP) PO SCH (10:46)
[2021-04-19] MEDS: NICOTINE 21 MG/24 HOURS TOPICAL PATCH TD SCH (10:47)
[2021-04-19] MEDS: HYDROCHLOROTHIAZIDE 25 MG TABLET (FP) PO SCH (10:47)
[2021-04-19] MEDS: RAMIPRIL 5 MG CAPSULE PO SCH (10:47)
[2021-04-19] MEDS: MAG HYDROX/AL HYDROX/SIMETH 30 ML UNIT-DOSE CUP PO PRN (10:48)
[2021-04-19] MEDS: RIVAROXABAN 10 MG TABLET PO SCH (17:53)
[2021-04-19] MEDS: risperiDONE 2 MG TABLET PO SCH (22:01)
[2021-04-19] MEDS: traZODone HCL 50 MG TABLET (FP) PO SCH (22:01)
[2021-04-19] MEDS: MELATONIN 5 MG TABLETS PO SCH (22:02)
[2021-04-19] MEDS: THIAMINE HCL 100 MG TABLET (FP) PO SCH (22:02)
[2021-04-20] MEDS: NICOTINE 10 MG CARTRIDGE (INHALER) IH PRN ×4 (06:06→21:06)
[2021-04-20] MEDS: HYDROCHLOROTHIAZIDE 25 MG TABLET (FP) PO SCH (09:35)
[2021-04-20] MEDS: PRENATAL VITAMINS W/ FOLIC ACID TABLET (FP) PO SCH (09:35)
[2021-04-20] MEDS: NICOTINE 21 MG/24 HOURS TOPICAL PATCH TD SCH (09:35)
[2021-04-20] MEDS: amLODIPine BESYLATE 5 MG TABLET (FP) PO SCH (09:35)
[2021-04-20] MEDS: GABAPENTIN 300 MG CAPSULE PO SCH ×2 (09:35→21:06)
[2021-04-20] MEDS: RAMIPRIL 5 MG CAPSULE PO SCH (09:36)
[2021-04-20] MEDS: RIVAROXABAN 10 MG TABLET PO SCH (17:47)
[2021-04-20] MEDS: risperiDONE 2 MG TABLET PO SCH (21:06)
[2021-04-20] MEDS: THIAMINE HCL 100 MG TABLET (FP) PO SCH (21:06)
[2021-04-20] MEDS: traZODone HCL 50 MG TABLET (FP) PO SCH (21:06)
[2021-04-20] MEDS: MELATONIN 5 MG TABLETS PO SCH (21:06)
[2021-04-21] MEDS: NICOTINE 10 MG CARTRIDGE (INHALER) IH PRN (06:08)
[2021-04-21 07:01] VITALS: BP 161/96; PULSE 86; TEMP 97.2
[2021-04-21] MEDS: HYDROCHLOROTHIAZIDE 25 MG TABLET (FP) PO SCH (09:20)
[2021-04-21] MEDS: amLODIPine BESYLATE 5 MG TABLET (FP) PO SCH (09:20)
[2021-04-21] MEDS: NICOTINE 21 MG/24 HOURS TOPICAL PATCH TD SCH (09:21)
[2021-04-21] MEDS: GABAPENTIN 300 MG CAPSULE PO SCH (09:21)
[2021-04-21] MEDS: PRENATAL VITAMINS W/ FOLIC ACID TABLET (FP) PO SCH (09:21)
[2021-04-21] MEDS: RAMIPRIL 5 MG CAPSULE PO SCH (09:21)
== END 2021-04-21 09:42 | disposition home or self-care (01) | DRG 772 ==
LOC: YASAS 11:57 → Y3W 11:58
PROVIDERS: ADMIT Allergy & Immunology; ATTEND Allergy & Immunology
PROC: HZ42ZZZ Group Counseling for Substance Abuse Treatment, Cognitive-Behavioral (ICD-10-PCS; principal; 2021-04-09)
DX: F10.20 Alcohol dependence, uncomplicated (principal); F12.20 Cannabis dependence, uncomplicated; F17.210 Nicotine dependence, cigarettes, uncomplicated; F31.9 Bipolar disorder, unspecified; I10 Essential (primary) hypertension; Z62.810 Personal history of physical and sexual abuse in childhood; Z86.718 Personal history of other venous thrombosis and embolism; Z79.01 Long term (current) use of anticoagulants; Z86.19 Personal history of other infectious and parasitic diseases
CPT/HCPCS: 36415; 81003; 87389; 90732; G0009; J2794

== ENCOUNTER 2022-04-01 12:11 | Inpatient (IN) | payer OTHER ==
[2022-04-01 14:48] VITALS: BMI 28.6
[2022-04-01] MEDS ORDERED: DICYCLOMINE HCL 10 MG CAPSULE PO PRN (16:06)
[2022-04-01] MEDS ORDERED: MAGNESIUM HYDROX 2400MG/30ML ORAL SUSPENSION 30 ML CUP PO PRN (16:06)
[2022-04-01] MEDS ORDERED: hydrOXYzine PAMOATE 25 MG CAPSULE (FP) PO PRN (16:06)
[2022-04-01] MEDS ORDERED: chlordiazePOXIDE HCL 25 MG CAPSULE PO PRN (16:06)
[2022-04-01] MEDS ORDERED: ONDANSETRON *ODT* 4 MG TABLET SL PRN (16:06)
[2022-04-01] MEDS ORDERED: METHOCARBAMOL 500 MG TABLET PO PRN (16:06)
[2022-04-01] MEDS ORDERED: LOPERAMIDE HCL 2 MG CAPSULE PO PRN (16:06)
[2022-04-01] MEDS ORDERED: BISMUTH SUBSALICYLATE 524 MG/30 ML PO PRN (16:06)
[2022-04-01] MEDS ORDERED: MAG HYDROX/AL HYDROX/SIMETH 30 ML UNIT-DOSE CUP PO PRN (16:06)
[2022-04-01] MEDS ORDERED: NICOTINE POLACRILEX 2 MG GUM BUC PRN (16:06)
[2022-04-01] MEDS ORDERED: IBUPROFEN 400 MG TABLET (FP) PO PRN (16:06)
[2022-04-01] MEDS ORDERED: ACETAMINOPHEN 325 MG TABLET (FP) PO PRN ×2 (16:06)
[2022-04-01] MEDS ORDERED: BENZOCAINE/MENTHOL (CHLORASEPTIC ) LOZENGE MM PRN (16:06)
[2022-04-01] MEDS ORDERED: IBUPROFEN 600 MG TABLET (FP) PO PRN (16:06)
[2022-04-01] MEDS ORDERED: MAGNESIUM CITRATE 300 ML BOTTLE PO PRN (16:06)
[2022-04-01] MEDS: chlordiazePOXIDE HCL 25 MG CAPSULE PO SCH ×2 (18:36→22:03)
[2022-04-01] MEDS: MELATONIN 5 MG TABLETS PO SCH (22:04)
[2022-04-01] MEDS: THIAMINE HCL 100 MG TABLET (FP) PO SCH (22:04)
[2022-04-02] MEDS: chlordiazePOXIDE HCL 25 MG CAPSULE PO SCH ×4 (05:33→22:15)
[2022-04-02] MEDS: HYDROCHLOROTHIAZIDE 25 MG TABLET (FP) PO SCH (10:09)
[2022-04-02] MEDS: amLODIPine BESYLATE 5 MG TABLET (FP) PO SCH (10:09)
[2022-04-02] MEDS: GABAPENTIN 300 MG CAPSULE PO SCH ×2 (10:09→22:15)
[2022-04-02] MEDS: RAMIPRIL 5 MG CAPSULE PO SCH (10:09)
[2022-04-02] MEDS: PRENATAL VITAMINS W/ FOLIC ACID TABLET (FP) PO SCH (10:10)
[2022-04-02] MEDS: NICOTINE 7 MG/24 HOURS TOPICAL PATCH TD SCH (10:10)
[2022-04-02 10:46] LABS: HEMATOCRIT 49.3 % (35.4-49); HEMOGLOBIN 16.6 GM/dL (11.7-16.9); MCH 32.6 pg (25.7-33.7); MCHC 33.7 g/dl (32.0-35.9); MEAN CELL VOLUME 96.7 fl (80-96); MEAN PLT VOLUME 8.4 fl (7.5-11.1); PLATELET COUNT 273 10^3/uL (134-434); RDW 14.8 % (11.9-15.9)
[2022-04-02 10:54] LABS: ALBUMIN 3.6 g/dl (3.4-5.0)
[2022-04-02 10:56] LABS: BLOOD UREA NITROGEN 5.8 mg/dL (7-18)
[2022-04-02 10:57] LABS: CREATININE 0.8 mg/dL (0.55-1.3)
[2022-04-02 10:59] LABS: BILIRUBIN,TOTAL 0.9 mg/dL (0.2-1)
[2022-04-02] MEDS: RIVAROXABAN 20 MG TABLET PO SCH (17:39)
[2022-04-02] MEDS: BENZTROPINE MESYLATE 1 MG TABLET PO SCH (22:14)
[2022-04-02] MEDS: risperiDONE 1 MG TABLET PO SCH (22:14)
[2022-04-02] MEDS: MELATONIN 5 MG TABLETS PO SCH (22:14)
[2022-04-02] MEDS: traZODone HCL 50 MG TABLET (FP) PO SCH (22:15)
[2022-04-02] MEDS: THIAMINE HCL 100 MG TABLET (FP) PO SCH (22:15)
[2022-04-03] MEDS: chlordiazePOXIDE HCL 25 MG CAPSULE PO SCH ×4 (05:56→22:28)
[2022-04-03] MEDS: RAMIPRIL 5 MG CAPSULE PO SCH (10:05)
[2022-04-03] MEDS: GABAPENTIN 300 MG CAPSULE PO SCH ×2 (10:06→22:27)
[2022-04-03] MEDS: amLODIPine BESYLATE 5 MG TABLET (FP) PO SCH (10:06)
[2022-04-03] MEDS: HYDROCHLOROTHIAZIDE 25 MG TABLET (FP) PO SCH (10:06)
[2022-04-03] MEDS: BENZTROPINE MESYLATE 1 MG TABLET PO SCH ×2 (10:06→22:26)
[2022-04-03] MEDS: risperiDONE 1 MG TABLET PO SCH ×2 (10:06→22:27)
[2022-04-03] MEDS: NICOTINE 7 MG/24 HOURS TOPICAL PATCH TD SCH (10:07)
[2022-04-03] MEDS: PRENATAL VITAMINS W/ FOLIC ACID TABLET (FP) PO SCH (10:07)
[2022-04-03] MEDS: RIVAROXABAN 20 MG TABLET PO SCH (17:40)
[2022-04-03] MEDS: traZODone HCL 50 MG TABLET (FP) PO SCH (22:27)
[2022-04-03] MEDS: THIAMINE HCL 100 MG TABLET (FP) PO SCH (22:27)
[2022-04-03] MEDS: MELATONIN 5 MG TABLETS PO SCH (22:27)
[2022-04-04] MEDS ORDERED: chlordiazePOXIDE HCL 10 MG CAPSULE PO PRN
[2022-04-04] MEDS: chlordiazePOXIDE HCL 10 MG CAPSULE PO SCH ×4 (05:16→22:43)
[2022-04-04] MEDS: PRENATAL VITAMINS W/ FOLIC ACID TABLET (FP) PO SCH (10:18)
[2022-04-04] MEDS: HYDROCHLOROTHIAZIDE 25 MG TABLET (FP) PO SCH (10:18)
[2022-04-04] MEDS: risperiDONE 1 MG TABLET PO SCH ×2 (10:21→22:45)
[2022-04-04] MEDS: GABAPENTIN 300 MG CAPSULE PO SCH ×2 (10:21→22:45)
[2022-04-04] MEDS: BENZTROPINE MESYLATE 1 MG TABLET PO SCH ×2 (10:21→22:44)
[2022-04-04] MEDS: amLODIPine BESYLATE 5 MG TABLET (FP) PO SCH (10:21)
[2022-04-04] MEDS: NICOTINE 21 MG/24 HOURS TOPICAL PATCH TD SCH (10:22)
[2022-04-04] MEDS: RAMIPRIL 5 MG CAPSULE PO SCH (10:22)
[2022-04-04 13:09] VITALS: RESP 18
[2022-04-04] MEDS: RIVAROXABAN 20 MG TABLET PO SCH ×2 (18:10→18:46)
[2022-04-04] MEDS: MELATONIN 5 MG TABLETS PO SCH (22:46)
[2022-04-04] MEDS: THIAMINE HCL 100 MG TABLET (FP) PO SCH (22:46)
[2022-04-04] MEDS: traZODone HCL 50 MG TABLET (FP) PO SCH (22:46)
[2022-04-05] MEDS: chlordiazePOXIDE HCL 10 MG CAPSULE PO SCH ×2 (05:15→17:42)
[2022-04-05] MEDS: risperiDONE 1 MG TABLET PO SCH ×2 (10:06→22:18)
[2022-04-05] MEDS: BENZTROPINE MESYLATE 1 MG TABLET PO SCH ×2 (10:07→22:18)
[2022-04-05] MEDS: GABAPENTIN 300 MG CAPSULE PO SCH ×2 (10:07→22:18)
[2022-04-05] MEDS: RAMIPRIL 5 MG CAPSULE PO SCH (10:09)
[2022-04-05] MEDS: amLODIPine BESYLATE 5 MG TABLET (FP) PO SCH (10:09)
[2022-04-05] MEDS: HYDROCHLOROTHIAZIDE 25 MG TABLET (FP) PO SCH (10:09)
[2022-04-05] MEDS: PRENATAL VITAMINS W/ FOLIC ACID TABLET (FP) PO SCH (10:09)
[2022-04-05] MEDS: NICOTINE 21 MG/24 HOURS TOPICAL PATCH TD SCH (10:10)
[2022-04-05] MEDS: RIVAROXABAN 20 MG TABLET PO SCH (17:43)
[2022-04-05] MEDS: MELATONIN 5 MG TABLETS PO SCH (22:18)
[2022-04-05] MEDS: traZODone HCL 50 MG TABLET (FP) PO SCH (22:18)
[2022-04-05] MEDS: THIAMINE HCL 100 MG TABLET (FP) PO SCH (22:18)
[2022-04-06] MEDS ORDERED: chlordiazePOXIDE HCL 10 MG CAPSULE PO ONE (05:00)
[2022-04-06 09:01] VITALS: BP 136/78; PULSE 85; TEMP 97.7
[2022-04-06] MEDS: BENZTROPINE MESYLATE 1 MG TABLET PO SCH (09:41)
[2022-04-06] MEDS: RAMIPRIL 5 MG CAPSULE PO SCH (09:41)
[2022-04-06] MEDS: HYDROCHLOROTHIAZIDE 25 MG TABLET (FP) PO SCH (09:42)
[2022-04-06] MEDS: amLODIPine BESYLATE 5 MG TABLET (FP) PO SCH (09:42)
[2022-04-06] MEDS: NICOTINE 21 MG/24 HOURS TOPICAL PATCH TD SCH (09:42)
[2022-04-06] MEDS: GABAPENTIN 300 MG CAPSULE PO SCH (09:42)
[2022-04-06] MEDS: PRENATAL VITAMINS W/ FOLIC ACID TABLET (FP) PO SCH (09:43)
[2022-04-06] MEDS: risperiDONE 1 MG TABLET PO SCH (09:43)
== END 2022-04-06 09:10 | disposition home or self-care (01) | DRG 775 ==
LOC: YASAS 12:11 → Y3N 17:05
PROVIDERS: ADMIT Allergy & Immunology; ATTEND Surgery
PROC: HZ2ZZZZ Detoxification Services for Substance Abuse Treatment (ICD-10-PCS; principal; 2022-04-01)
DX: F10.230 Alcohol dependence with withdrawal, uncomplicated (principal); F12.20 Cannabis dependence, uncomplicated; F17.210 Nicotine dependence, cigarettes, uncomplicated; F41.1 Generalized anxiety disorder; I10 Essential (primary) hypertension; E78.5 Hyperlipidemia, unspecified; G47.00 Insomnia, unspecified; R21 Rash and other nonspecific skin eruption; Z62.810 Personal history of physical and sexual abuse in childhood; Z86.718 Personal history of other venous thrombosis and embolism; Z86.79 Personal history of other diseases of the circulatory system; Z87.438 Personal history of other diseases of male genital organs; Z56.0 Unemployment, unspecified
CPT/HCPCS: 36415; 80053; 85027; 86780; C9803-CS; J2794; U0003; U0005

== ENCOUNTER 2022-09-10 12:18 | Inpatient (IN) | payer OTHER ==
[2022-09-10 12:41] VITALS: BMI 29.2
[2022-09-10] MEDS ORDERED: hydrOXYzine PAMOATE 25 MG CAPSULE (FP) PO PRN (15:03)
[2022-09-10] MEDS ORDERED: NALOXONE HCL (KLOXXADO) 8 MG SPRAY NS PRN (15:03)
[2022-09-10] MEDS ORDERED: IBUPROFEN 400 MG TABLET (FP) PO PRN (15:03)
[2022-09-10] MEDS ORDERED: BISMUTH SUBSALICYLATE 524 MG/30 ML PO PRN (15:03)
[2022-09-10] MEDS ORDERED: IBUPROFEN 600 MG TABLET (FP) PO PRN (15:03)
[2022-09-10] MEDS ORDERED: ONDANSETRON *ODT* 4 MG TABLET SL PRN (15:03)
[2022-09-10] MEDS ORDERED: BACLOFEN 10 MG TABLET (FP) PO PRN (15:03)
[2022-09-10] MEDS ORDERED: NICOTINE 10 MG CARTRIDGE (INHALER) IH PRN (15:03)
[2022-09-10] MEDS ORDERED: BENZOCAINE/MENTHOL (CHLORASEPTIC ) LOZENGE MM PRN (15:03)
[2022-09-10] MEDS ORDERED: LORazepam 1 MG TABLET PO PRN (15:03)
[2022-09-10] MEDS ORDERED: DICYCLOMINE HCL 10 MG CAPSULE PO PRN (15:03)
[2022-09-10] MEDS ORDERED: MAGNESIUM HYDROX 2400MG/30ML ORAL SUSPENSION 30 ML CUP PO PRN (15:03)
[2022-09-10] MEDS ORDERED: ACETAMINOPHEN 325 MG TABLET (FP) PO PRN ×2 (15:03)
[2022-09-10] MEDS ORDERED: MAG HYDROX/AL HYDROX/SIMETH 30 ML UNIT-DOSE CUP PO PRN (15:03)
[2022-09-10] MEDS ORDERED: LOPERAMIDE HCL 2 MG CAPSULE PO PRN (15:03)
[2022-09-10] MEDS ORDERED: POLYETHYLENE GLYCOL (HEALTHYLAX) 3350 17 GM PACKET PO PRN (15:03)
[2022-09-10] MEDS ORDERED: LORazepam 1 MG TABLET ONE (15:24)
[2022-09-10] MEDS: HYDROCHLOROTHIAZIDE 25 MG TABLET (FP) PO SCH (17:18)
[2022-09-10] MEDS: amLODIPine BESYLATE 5 MG TABLET (FP) PO SCH (17:18)
[2022-09-10] MEDS: LORazepam 2 MG TABLET PO SCH ×2 (17:18→22:25)
[2022-09-10] MEDS: PRENATAL VITAMINS W/ FOLIC ACID TABLET (FP) PO SCH (17:19)
[2022-09-10] MEDS: MELATONIN 5 MG TABLETS PO SCH (22:25)
[2022-09-10] MEDS: THIAMINE HCL 100 MG TABLET (FP) PO SCH (22:27)
[2022-09-11] MEDS: LORazepam 2 MG TABLET PO SCH ×4 (05:13→22:15)
[2022-09-11] MEDS: NICOTINE 14 MG/24 HOURS TOPICAL PATCH TD PRN (05:23)
[2022-09-11] MEDS: PRENATAL VITAMINS W/ FOLIC ACID TABLET (FP) PO SCH (10:08)
[2022-09-11] MEDS: amLODIPine BESYLATE 5 MG TABLET (FP) PO SCH (10:08)
[2022-09-11] MEDS: HYDROCHLOROTHIAZIDE 25 MG TABLET (FP) PO SCH (10:09)
[2022-09-11 12:08] LABS: HEMATOCRIT 39.8 % (35.4-49); HEMOGLOBIN 13.1 GM/dL (11.7-16.9); MCH 29.9 pg (25.7-33.7); MEAN CELL VOLUME 90.5 fl (80-96); MEAN PLT VOLUME 9.4 fl (7.5-11.1); PLATELET COUNT 183 10^3/uL (134-434); RDW 14.7 % (11.9-15.9); WHITE BLOOD COUNT 5.3 K/mm3 (4.0-10.0)
[2022-09-11 12:15] LABS: ALBUMIN 3.3 g/dl (3.4-5.0)
[2022-09-11 12:18] LABS: BLOOD UREA NITROGEN 7.7 mg/dL (7-18); CREATININE 0.7 mg/dL (0.55-1.3)
[2022-09-11 12:19] LABS: BILIRUBIN,TOTAL 0.2 mg/dL (0.2-1)
[2022-09-11 12:20] LABS: TOT PROT 6.2 g/dl (6.4-8.2)
[2022-09-11 13:09] LABS: HIV INTERPRETATION NEGATIVE (NEGATIVE)
[2022-09-11] MEDS ORDERED: risperiDONE 1 MG TABLET PO SCH (22:00)
[2022-09-11] MEDS: MELATONIN 5 MG TABLETS PO SCH (22:16)
[2022-09-11] MEDS: THIAMINE HCL 100 MG TABLET (FP) PO SCH (22:16)
[2022-09-11] MEDS: risperiDONE 2 MG TABLET PO SCH (22:16)
[2022-09-11] MEDS: traZODone HCL 50 MG TABLET (FP) PO SCH (22:16)
[2022-09-11] MEDS: BENZTROPINE MESYLATE 0.5 MG TABLET (FP) PO SCH (22:43)
[2022-09-12] MEDS: LORazepam 1 MG TABLET PO SCH ×4 (05:49→22:13)
[2022-09-12] MEDS: NICOTINE 14 MG/24 HOURS TOPICAL PATCH TD PRN (05:49)
[2022-09-12] MEDS: amLODIPine BESYLATE 5 MG TABLET (FP) PO SCH (10:06)
[2022-09-12] MEDS: HYDROCHLOROTHIAZIDE 25 MG TABLET (FP) PO SCH (10:06)
[2022-09-12] MEDS: PRENATAL VITAMINS W/ FOLIC ACID TABLET (FP) PO SCH (10:06)
[2022-09-12] MEDS: BENZTROPINE MESYLATE 0.5 MG TABLET (FP) PO SCH ×2 (10:06→22:13)
[2022-09-12] MEDS: traZODone HCL 50 MG TABLET (FP) PO SCH (22:12)
[2022-09-12] MEDS: risperiDONE 2 MG TABLET PO SCH (22:12)
[2022-09-12] MEDS: THIAMINE HCL 100 MG TABLET (FP) PO SCH (22:12)
[2022-09-12] MEDS: GABAPENTIN 300 MG CAPSULE PO SCH (22:12)
[2022-09-12] MEDS: MELATONIN 5 MG TABLETS PO SCH (22:13)
[2022-09-13] MEDS ORDERED: LORazepam 0.5 MG TABLET PO PRN
[2022-09-13] MEDS: LORazepam 0.5 MG TABLET PO SCH ×4 (05:19→23:03)
[2022-09-13] MEDS: PRENATAL VITAMINS W/ FOLIC ACID TABLET (FP) PO SCH (10:02)
[2022-09-13] MEDS: BENZTROPINE MESYLATE 0.5 MG TABLET (FP) PO SCH ×2 (10:02→21:39)
[2022-09-13] MEDS: HYDROCHLOROTHIAZIDE 25 MG TABLET (FP) PO SCH (10:02)
[2022-09-13] MEDS: GABAPENTIN 300 MG CAPSULE PO SCH ×2 (10:02→21:40)
[2022-09-13] MEDS: amLODIPine BESYLATE 5 MG TABLET (FP) PO SCH (10:03)
[2022-09-13] MEDS: NICOTINE 14 MG/24 HOURS TOPICAL PATCH TD PRN (10:07)
[2022-09-13] MEDS: traZODone HCL 50 MG TABLET (FP) PO SCH (21:00)
[2022-09-13] MEDS: risperiDONE 2 MG TABLET PO SCH (21:39)
[2022-09-13] MEDS: THIAMINE HCL 100 MG TABLET (FP) PO SCH (21:40)
[2022-09-13] MEDS: MELATONIN 5 MG TABLETS PO SCH (23:04)
[2022-09-14] MEDS ORDERED: LORazepam 0.5 MG TABLET PO ONE (05:00)
[2022-09-14] MEDS: GABAPENTIN 300 MG CAPSULE PO SCH (09:28)
[2022-09-14] MEDS: HYDROCHLOROTHIAZIDE 25 MG TABLET (FP) PO SCH (09:29)
[2022-09-14] MEDS: BENZTROPINE MESYLATE 0.5 MG TABLET (FP) PO SCH (09:29)
[2022-09-14] MEDS: PRENATAL VITAMINS W/ FOLIC ACID TABLET (FP) PO SCH (09:29)
[2022-09-14] MEDS: amLODIPine BESYLATE 5 MG TABLET (FP) PO SCH (09:29)
[2022-09-14] MEDS: NICOTINE 14 MG/24 HOURS TOPICAL PATCH TD PRN (09:31)
[2022-09-14 12:41] VITALS: BP 141/68; PULSE 96; RESP 16; TEMP 98.6
== END 2022-09-14 09:48 | disposition other institution (70) | DRG 774 ==
LOC: YASAS 12:18 → Y3N 15:31
PROVIDERS: ADMIT Allergy & Immunology; ATTEND Surgery
PROC: HZ2ZZZZ Detoxification Services for Substance Abuse Treatment (ICD-10-PCS; principal; 2022-09-10)
DX: F10.230 Alcohol dependence with withdrawal, uncomplicated (principal); F14.20 Cocaine dependence, uncomplicated; F12.20 Cannabis dependence, uncomplicated; F17.210 Nicotine dependence, cigarettes, uncomplicated; F31.81 Bipolar II disorder; F19.24 Other psychoactive substance dependence with psychoactive substance-induced mood disorder; F41.1 Generalized anxiety disorder; G47.00 Insomnia, unspecified; I10 Essential (primary) hypertension; E78.5 Hyperlipidemia, unspecified; K21.9 Gastro-esophageal reflux disease without esophagitis; Z62.810 Personal history of physical and sexual abuse in childhood; Z86.19 Personal history of other infectious and parasitic diseases; Z86.718 Personal history of other venous thrombosis and embolism
CPT/HCPCS: 36415; 80053; 82140; 85027; 86780; 87389; 87491; 87591; 87661; C9803-CS; J0475; U0003; U0005

== ENCOUNTER 2022-11-12 13:44 | Inpatient (IN) | payer OTHER ==
[2022-11-12 14:30] VITALS: BMI 27.1
[2022-11-12] MEDS ORDERED: IBUPROFEN 400 MG TABLET (FP) PO PRN (16:45)
[2022-11-12] MEDS ORDERED: BENZOCAINE/MENTHOL (CHLORASEPTIC ) LOZENGE MM PRN (16:45)
[2022-11-12] MEDS ORDERED: MAGNESIUM HYDROX 2400MG/30ML ORAL SUSPENSION 30 ML CUP PO PRN (16:45)
[2022-11-12] MEDS ORDERED: LOPERAMIDE HCL 2 MG CAPSULE PO PRN (16:45)
[2022-11-12] MEDS ORDERED: METHOCARBAMOL 500 MG TABLET PO PRN (16:45)
[2022-11-12] MEDS ORDERED: ACETAMINOPHEN 325 MG TABLET (FP) PO PRN ×2 (16:45)
[2022-11-12] MEDS ORDERED: DICYCLOMINE HCL 10 MG CAPSULE PO PRN (16:45)
[2022-11-12] MEDS ORDERED: POLYETHYLENE GLYCOL (HEALTHYLAX) 3350 17 GM PACKET PO PRN (16:45)
[2022-11-12] MEDS ORDERED: MAG HYDROX/AL HYDROX/SIMETH 30 ML UNIT-DOSE CUP PO PRN (16:45)
[2022-11-12] MEDS ORDERED: NALOXONE HCL (KLOXXADO) 8 MG SPRAY NS PRN (16:45)
[2022-11-12] MEDS ORDERED: BISMUTH SUBSALICYLATE 524 MG/30 ML PO PRN (16:45)
[2022-11-12] MEDS ORDERED: IBUPROFEN 600 MG TABLET (FP) PO PRN (16:45)
[2022-11-12] MEDS ORDERED: ONDANSETRON *ODT* 4 MG TABLET SL PRN (16:45)
[2022-11-12] MEDS: NICOTINE 21 MG/24 HOURS TOPICAL PATCH TD SCH (18:07)
[2022-11-12] MEDS: chlordiazePOXIDE HCL 25 MG CAPSULE PO SCH ×2 (18:07→22:03)
[2022-11-12] MEDS: HYDROCHLOROTHIAZIDE 25 MG TABLET (FP) PO SCH (18:07)
[2022-11-12] MEDS: amLODIPine BESYLATE 5 MG TABLET (FP) PO SCH (18:07)
[2022-11-12] MEDS: PRENATAL VITAMINS W/ FOLIC ACID TABLET (FP) PO SCH (18:07)
[2022-11-12] MEDS: RAMIPRIL 5 MG CAPSULE PO SCH (21:00)
[2022-11-12] MEDS: MELATONIN 5 MG TABLETS PO SCH (22:03)
[2022-11-12] MEDS: THIAMINE HCL 100 MG TABLET (FP) PO SCH (22:03)
[2022-11-13] MEDS: chlordiazePOXIDE HCL 25 MG CAPSULE PO SCH ×4 (05:21→22:06)
[2022-11-13] MEDS: PRENATAL VITAMINS W/ FOLIC ACID TABLET (FP) PO SCH (10:10)
[2022-11-13] MEDS: HYDROCHLOROTHIAZIDE 25 MG TABLET (FP) PO SCH (10:10)
[2022-11-13] MEDS: RAMIPRIL 5 MG CAPSULE PO SCH (10:10)
[2022-11-13] MEDS: amLODIPine BESYLATE 5 MG TABLET (FP) PO SCH (10:10)
[2022-11-13] MEDS: NICOTINE 21 MG/24 HOURS TOPICAL PATCH TD SCH (10:12)
[2022-11-13 11:01] LABS: HEMATOCRIT 41.5 % (35.4-49); HEMOGLOBIN 13.5 GM/dL (11.7-16.9); MCH 28.3 pg (25.7-33.7); MCHC 32.5 g/dl (32.0-35.9); MEAN CELL VOLUME 87.2 fl (80-96); MEAN PLT VOLUME 8.6 fl (7.5-11.1); PLATELET COUNT 221 10^3/uL (134-434); RBC 4.76 M/mm3 (4.00-5.60); RDW 15.6 % (11.9-15.9); WHITE BLOOD COUNT 5.9 K/mm3 (4.0-10.0)
[2022-11-13 11:18] LABS: CALCIUM 8.6 mg/dL (8.5-10.1)
[2022-11-13 11:20] LABS: ALBUMIN 3.5 g/dl (3.4-5.0); BLOOD UREA NITROGEN 9.1 mg/dL (7-18)
[2022-11-13 11:23] LABS: CREATININE 0.8 mg/dL (0.55-1.3)
[2022-11-13 11:24] LABS: BILIRUBIN,TOTAL 0.7 mg/dL (0.2-1); TOT PROT 6.5 g/dl (6.4-8.2)
[2022-11-13] MEDS: NICOTINE 10 MG CARTRIDGE (INHALER) IH PRN (17:31)
[2022-11-13] MEDS: traZODone HCL 100 MG TABLET (FP) PO SCH (22:06)
[2022-11-13] MEDS: risperiDONE 1 MG TABLET PO SCH (22:06)
[2022-11-13] MEDS: BENZTROPINE MESYLATE 0.5 MG TABLET (FP) PO SCH (22:06)
[2022-11-13] MEDS: MELATONIN 5 MG TABLETS PO SCH (22:07)
[2022-11-13] MEDS: THIAMINE HCL 100 MG TABLET (FP) PO SCH (22:07)
[2022-11-14] MEDS: chlordiazePOXIDE HCL 25 MG CAPSULE PO SCH ×4 (05:39→22:05)
[2022-11-14] MEDS: NICOTINE 10 MG CARTRIDGE (INHALER) IH PRN ×3 (05:41→22:08)
[2022-11-14] MEDS: amLODIPine BESYLATE 5 MG TABLET (FP) PO SCH (10:38)
[2022-11-14] MEDS: RAMIPRIL 5 MG CAPSULE PO SCH (10:38)
[2022-11-14] MEDS: PRENATAL VITAMINS W/ FOLIC ACID TABLET (FP) PO SCH (10:38)
[2022-11-14] MEDS: risperiDONE 1 MG TABLET PO SCH ×2 (10:39→22:06)
[2022-11-14] MEDS: HYDROCHLOROTHIAZIDE 25 MG TABLET (FP) PO SCH (10:39)
[2022-11-14] MEDS: NICOTINE 21 MG/24 HOURS TOPICAL PATCH TD SCH (10:39)
[2022-11-14] MEDS: BENZTROPINE MESYLATE 0.5 MG TABLET (FP) PO SCH ×2 (10:39→22:06)
[2022-11-14] MEDS: MELATONIN 5 MG TABLETS PO SCH (22:06)
[2022-11-14] MEDS: traZODone HCL 100 MG TABLET (FP) PO SCH (22:06)
[2022-11-14] MEDS: THIAMINE HCL 100 MG TABLET (FP) PO SCH (22:06)
[2022-11-15] MEDS: chlordiazePOXIDE HCL 10 MG CAPSULE PO SCH ×4 (05:40→22:21)
[2022-11-15] MEDS: amLODIPine BESYLATE 5 MG TABLET (FP) PO SCH (10:21)
[2022-11-15] MEDS: PRENATAL VITAMINS W/ FOLIC ACID TABLET (FP) PO SCH (10:21)
[2022-11-15] MEDS: RAMIPRIL 5 MG CAPSULE PO SCH (10:21)
[2022-11-15] MEDS: HYDROCHLOROTHIAZIDE 25 MG TABLET (FP) PO SCH (10:21)
[2022-11-15] MEDS: risperiDONE 1 MG TABLET PO SCH ×2 (10:22→22:21)
[2022-11-15] MEDS: BENZTROPINE MESYLATE 0.5 MG TABLET (FP) PO SCH ×2 (10:22→22:22)
[2022-11-15] MEDS: NICOTINE 21 MG/24 HOURS TOPICAL PATCH TD SCH (10:23)
[2022-11-15] MEDS: NICOTINE 10 MG CARTRIDGE (INHALER) IH PRN ×2 (17:24→22:23)
[2022-11-15] MEDS: GABAPENTIN 300 MG CAPSULE PO SCH (22:21)
[2022-11-15] MEDS: traZODone HCL 100 MG TABLET (FP) PO SCH (22:21)
[2022-11-15] MEDS: THIAMINE HCL 100 MG TABLET (FP) PO SCH (22:22)
[2022-11-15] MEDS: MELATONIN 5 MG TABLETS PO SCH (22:22)
[2022-11-16] MEDS: chlordiazePOXIDE HCL 10 MG CAPSULE PO SCH ×2 (05:31→17:45)
[2022-11-16] MEDS: NICOTINE 10 MG CARTRIDGE (INHALER) IH PRN ×2 (05:38→17:45)
[2022-11-16] MEDS: amLODIPine BESYLATE 5 MG TABLET (FP) PO SCH (10:30)
[2022-11-16] MEDS: risperiDONE 1 MG TABLET PO SCH (10:30)
[2022-11-16] MEDS: PRENATAL VITAMINS W/ FOLIC ACID TABLET (FP) PO SCH (10:30)
[2022-11-16] MEDS: NICOTINE 21 MG/24 HOURS TOPICAL PATCH TD SCH (10:30)
[2022-11-16] MEDS: HYDROCHLOROTHIAZIDE 25 MG TABLET (FP) PO SCH (10:30)
[2022-11-16] MEDS: BENZTROPINE MESYLATE 0.5 MG TABLET (FP) PO SCH (10:30)
[2022-11-16] MEDS: RAMIPRIL 5 MG CAPSULE PO SCH (10:30)
[2022-11-16] MEDS: GABAPENTIN 300 MG CAPSULE PO SCH (10:30)
[2022-11-16 13:27] VITALS: TEMP 97.7
[2022-11-16 17:41] VITALS: BP 116/80; PULSE 90; RESP 18
[2022-11-16] MEDS ORDERED: BENZTROPINE MESYLATE 1 MG TABLET PO SCH (22:00)
[2022-11-17] MEDS ORDERED: chlordiazePOXIDE HCL 10 MG CAPSULE PO ONE (05:00)
== END 2022-11-16 19:00 | disposition other institution (70) | DRG 774 ==
LOC: YASAS 13:44 → Y3N 16:52
PROVIDERS: ADMIT Allergy & Immunology; ATTEND Surgery
PROC: HZ2ZZZZ Detoxification Services for Substance Abuse Treatment (ICD-10-PCS; principal; 2022-11-12)
DX: F10.230 Alcohol dependence with withdrawal, uncomplicated (principal); F14.20 Cocaine dependence, uncomplicated; F12.20 Cannabis dependence, uncomplicated; F17.210 Nicotine dependence, cigarettes, uncomplicated; F31.81 Bipolar II disorder; E78.5 Hyperlipidemia, unspecified; G47.00 Insomnia, unspecified; I10 Essential (primary) hypertension; Z62.810 Personal history of physical and sexual abuse in childhood; Z86.19 Personal history of other infectious and parasitic diseases
CPT/HCPCS: 36415; 80053; 85027; 86780; 87811; C9803-CS; U0003; U0005

== ENCOUNTER 2022-11-16 20:02 | Inpatient (IN) | payer OTHER ==
[2022-11-16] MEDS ORDERED: PATIENT'S OWN MEDICATION (NON-FORMULARY) (Trazodone Hcl [Trazodone Hcl] 150 MG Tablet) PO SCH (23:30)
[2022-11-16] MEDS ORDERED: MAGNESIUM HYDROX 2400MG/30ML ORAL SUSPENSION 30 ML CUP PO PRN (23:31)
[2022-11-16] MEDS ORDERED: MAG HYDROX/AL HYDROX/SIMETH 30 ML UNIT-DOSE CUP PO PRN (23:31)
[2022-11-16] MEDS ORDERED: ACETAMINOPHEN 325 MG TABLET (FP) PO PRN (23:31)
[2022-11-16] MEDS ORDERED: IBUPROFEN 400 MG TABLET (FP) PO PRN (23:31)
[2022-11-16] MEDS ORDERED: BENZOCAINE/MENTHOL (CHLORASEPTIC ) LOZENGE MM PRN (23:31)
[2022-11-16] MEDS ORDERED: guaiFENesin 200 MG/10 ML 10 ML UNIT-DOSE CUPS PO PRN (23:31)
[2022-11-16] MEDS ORDERED: POLYETHYLENE GLYCOL (HEALTHYLAX) 3350 17 GM PACKET PO PRN (23:31)
[2022-11-16] MEDS ORDERED: NICOTINE POLACRILEX 2 MG GUM BUC PRN (23:31)
[2022-11-16] MEDS ORDERED: LOPERAMIDE HCL 2 MG CAPSULE PO PRN (23:31)
[2022-11-16] MEDS ORDERED: P-EPHED 60MG/TRIPROLIDI 2.5MG TABLET PO PRN (23:31)
[2022-11-17] MEDS: risperiDONE 1 MG TABLET PO SCH ×3 (00:11→21:47)
[2022-11-17] MEDS: GABAPENTIN 300 MG CAPSULE PO SCH ×3 (00:11→21:25)
[2022-11-17] MEDS: BENZTROPINE MESYLATE 0.5 MG TABLET (FP) PO SCH ×2 (00:12→10:59)
[2022-11-17] MEDS: HYDROCHLOROTHIAZIDE 25 MG TABLET (FP) PO SCH (10:17)
[2022-11-17] MEDS: PRENATAL VITAMINS W/ FOLIC ACID TABLET (FP) PO SCH (10:18)
[2022-11-17] MEDS: NICOTINE 14 MG/24 HOURS TOPICAL PATCH TD SCH (10:18)
[2022-11-17] MEDS: amLODIPine BESYLATE 5 MG TABLET (FP) PO SCH (10:18)
[2022-11-17] MEDS: RAMIPRIL 5 MG CAPSULE PO SCH (10:59)
[2022-11-17] MEDS: THIAMINE HCL 100 MG TABLET (FP) PO SCH (21:24)
[2022-11-17] MEDS: BENZTROPINE MESYLATE 1 MG TABLET PO SCH (21:24)
[2022-11-17] MEDS: traZODone HCL 50 MG TABLET (FP) PO SCH (21:24)
[2022-11-18] MEDS: NICOTINE 14 MG/24 HOURS TOPICAL PATCH TD SCH (10:12)
[2022-11-18] MEDS: risperiDONE 1 MG TABLET PO SCH ×2 (10:13→21:41)
[2022-11-18] MEDS: BENZTROPINE MESYLATE 1 MG TABLET PO SCH ×2 (10:13→21:41)
[2022-11-18] MEDS: GABAPENTIN 300 MG CAPSULE PO SCH ×2 (10:14→21:42)
[2022-11-18] MEDS: RAMIPRIL 5 MG CAPSULE PO SCH (10:14)
[2022-11-18] MEDS: PRENATAL VITAMINS W/ FOLIC ACID TABLET (FP) PO SCH (10:14)
[2022-11-18] MEDS: HYDROCHLOROTHIAZIDE 25 MG TABLET (FP) PO SCH (10:14)
[2022-11-18] MEDS: amLODIPine BESYLATE 5 MG TABLET (FP) PO SCH (10:14)
[2022-11-18] MEDS: THIAMINE HCL 100 MG TABLET (FP) PO SCH (21:41)
[2022-11-18] MEDS: traZODone HCL 50 MG TABLET (FP) PO SCH (21:41)
[2022-11-19] MEDS: BENZTROPINE MESYLATE 1 MG TABLET PO SCH ×2 (10:11→21:14)
[2022-11-19] MEDS: HYDROCHLOROTHIAZIDE 25 MG TABLET (FP) PO SCH (10:11)
[2022-11-19] MEDS: RAMIPRIL 5 MG CAPSULE PO SCH (10:11)
[2022-11-19] MEDS: NICOTINE 14 MG/24 HOURS TOPICAL PATCH TD SCH (10:11)
[2022-11-19] MEDS: GABAPENTIN 300 MG CAPSULE PO SCH ×2 (10:11→21:13)
[2022-11-19] MEDS: PRENATAL VITAMINS W/ FOLIC ACID TABLET (FP) PO SCH (10:12)
[2022-11-19] MEDS: risperiDONE 1 MG TABLET PO SCH ×2 (10:12→21:13)
[2022-11-19] MEDS: amLODIPine BESYLATE 5 MG TABLET (FP) PO SCH (10:12)
[2022-11-19] MEDS: traZODone HCL 50 MG TABLET (FP) PO SCH (21:13)
[2022-11-19] MEDS: THIAMINE HCL 100 MG TABLET (FP) PO SCH (21:13)
[2022-11-20 06:49] VITALS: RESP 16
[2022-11-20] MEDS: NICOTINE 14 MG/24 HOURS TOPICAL PATCH TD SCH (10:29)
[2022-11-20] MEDS: BENZTROPINE MESYLATE 1 MG TABLET PO SCH ×2 (10:31→21:27)
[2022-11-20] MEDS: GABAPENTIN 300 MG CAPSULE PO SCH ×2 (10:31→21:26)
[2022-11-20] MEDS: RAMIPRIL 5 MG CAPSULE PO SCH (10:31)
[2022-11-20] MEDS: amLODIPine BESYLATE 5 MG TABLET (FP) PO SCH (10:31)
[2022-11-20] MEDS: risperiDONE 1 MG TABLET PO SCH ×2 (10:31→21:26)
[2022-11-20] MEDS: HYDROCHLOROTHIAZIDE 25 MG TABLET (FP) PO SCH (10:31)
[2022-11-20] MEDS: PRENATAL VITAMINS W/ FOLIC ACID TABLET (FP) PO SCH (10:32)
[2022-11-20] MEDS: NICOTINE 10 MG CARTRIDGE (INHALER) IH PRN ×2 (10:33→21:25)
[2022-11-20] MEDS: traZODone HCL 50 MG TABLET (FP) PO SCH (21:26)
[2022-11-20] MEDS: THIAMINE HCL 100 MG TABLET (FP) PO SCH (21:26)
[2022-11-21] MEDS: NICOTINE 10 MG CARTRIDGE (INHALER) IH PRN (06:09)
[2022-11-21 06:51] VITALS: TEMP 97.6
[2022-11-21 09:07] VITALS: BP 117/74; PULSE 87
== END 2022-11-21 08:51 | disposition home or self-care (01) | DRG 772 ==
LOC: YASAS 20:02 → Y3E 20:03
PROVIDERS: ADMIT Allergy & Immunology; ATTEND Allergy & Immunology
PROC: HZ42ZZZ Group Counseling for Substance Abuse Treatment, Cognitive-Behavioral (ICD-10-PCS; principal; 2022-11-16)
DX: F10.20 Alcohol dependence, uncomplicated (principal); F14.20 Cocaine dependence, uncomplicated; F12.20 Cannabis dependence, uncomplicated; F17.210 Nicotine dependence, cigarettes, uncomplicated; F31.9 Bipolar disorder, unspecified; F19.24 Other psychoactive substance dependence with psychoactive substance-induced mood disorder; I10 Essential (primary) hypertension; K21.9 Gastro-esophageal reflux disease without esophagitis; E78.00 Pure hypercholesterolemia, unspecified; R21 Rash and other nonspecific skin eruption; Z86.718 Personal history of other venous thrombosis and embolism
CPT/HCPCS: 36415; 86803

== ENCOUNTER 2022-12-18 12:00 | Inpatient (IN) | payer OTHER ==
[2022-12-18 12:15] VITALS: BMI 28.4
[2022-12-18] MEDS ORDERED: NICOTINE 10 MG CARTRIDGE (INHALER) IH PRN (14:16)
[2022-12-18] MEDS ORDERED: NALOXONE HCL 0.4 MG/ML VIAL IM PRN (14:16)
[2022-12-18] MEDS ORDERED: NALOXONE HCL (KLOXXADO) 8 MG SPRAY NS PRN (14:16)
[2022-12-18] MEDS ORDERED: chlordiazePOXIDE HCL 25 MG CAPSULE PO ONE (14:16)
[2022-12-18] MEDS ORDERED: IBUPROFEN 600 MG TABLET (FP) PO PRN (14:16)
[2022-12-18] MEDS ORDERED: DICYCLOMINE HCL 10 MG CAPSULE PO PRN (14:16)
[2022-12-18] MEDS ORDERED: BENZOCAINE/MENTHOL (CHLORASEPTIC ) LOZENGE MM PRN (14:16)
[2022-12-18] MEDS ORDERED: BISMUTH SUBSALICYLATE 262 MG/15 ML BTL PO PRN (14:16)
[2022-12-18] MEDS ORDERED: IBUPROFEN 400 MG TABLET (FP) PO PRN (14:16)
[2022-12-18] MEDS ORDERED: ONDANSETRON *ODT* 4 MG TABLET SL PRN (14:16)
[2022-12-18] MEDS ORDERED: BENZONATATE 200 MG CAPSULE PO PRN (14:16)
[2022-12-18] MEDS ORDERED: LOPERAMIDE HCL 2 MG CAPSULE PO PRN (14:16)
[2022-12-18] MEDS ORDERED: MAG HYDROX/AL HYDROX/SIMETH 30 ML UNIT-DOSE CUP PO PRN (14:16)
[2022-12-18] MEDS ORDERED: POLYETHYLENE GLYCOL (HEALTHYLAX) 3350 17 GM PACKET PO PRN (14:16)
[2022-12-18] MEDS ORDERED: guaiFENesin 600 MG TABLET.ER (FP) PO PRN (14:16)
[2022-12-18] MEDS ORDERED: MAGNESIUM HYDROX 2400MG/30ML ORAL SUSPENSION 30 ML CUP PO PRN (14:16)
[2022-12-18] MEDS ORDERED: ACETAMINOPHEN 325 MG TABLET (FP) PO PRN (14:16)
[2022-12-18] MEDS ORDERED: METHOCARBAMOL 500 MG TABLET PO PRN (14:16)
[2022-12-18] MEDS ORDERED: chlordiazePOXIDE HCL 25 MG CAPSULE PO PRN (14:16)
[2022-12-18] MEDS: NICOTINE 21 MG/24 HOURS TOPICAL PATCH TD SCH (14:53)
[2022-12-18] MEDS: chlordiazePOXIDE HCL 25 MG CAPSULE PO SCH ×2 (17:35→22:18)
[2022-12-18] MEDS ORDERED: MELATONIN 5 MG TABLETS PO SCH (22:00)
[2022-12-18] MEDS: THIAMINE HCL 100 MG TABLET (FP) PO SCH (22:19)
[2022-12-19] MEDS: chlordiazePOXIDE HCL 25 MG CAPSULE PO SCH ×4 (05:24→22:14)
[2022-12-19] MEDS: GABAPENTIN 300 MG CAPSULE PO SCH ×2 (10:03→22:14)
[2022-12-19] MEDS: PRENATAL VITAMINS W/ FOLIC ACID TABLET (FP) PO SCH (10:04)
[2022-12-19] MEDS: NICOTINE 21 MG/24 HOURS TOPICAL PATCH TD SCH (10:04)
[2022-12-19] MEDS: BENZTROPINE MESYLATE 1 MG TABLET PO SCH ×2 (10:04→22:14)
[2022-12-19] MEDS: amLODIPine BESYLATE 5 MG TABLET (FP) PO SCH (11:16)
[2022-12-19] MEDS: HYDROCHLOROTHIAZIDE 25 MG TABLET (FP) PO SCH (11:16)
[2022-12-19] MEDS: RAMIPRIL 5 MG CAPSULE PO SCH (11:33)
[2022-12-19 11:46] LABS: HEMATOCRIT 38.3 % (35.4-49); HEMOGLOBIN 13.1 GM/dL (11.7-16.9); MCH 29.6 pg (25.7-33.7); MCHC 34.3 g/dl (32.0-35.9); MEAN CELL VOLUME 86.5 fl (80-96); MEAN PLT VOLUME 9.6 fl (7.5-11.1); PLATELET COUNT 196 10^3/uL (134-434); RBC 4.43 M/mm3 (4.00-5.60); RDW 16.9 % (11.9-15.9); WHITE BLOOD COUNT 3.2 K/mm3 (4.0-10.0)
[2022-12-19 12:04] LABS: CREATININE 0.8 mg/dL (0.55-1.3)
[2022-12-19 12:06] LABS: BILIRUBIN,TOTAL 0.3 mg/dL (0.2-1)
[2022-12-19 12:08] LABS: BLOOD UREA NITROGEN 9.8 mg/dL (7-18); TOT PROT 6.7 g/dl (6.4-8.2)
[2022-12-19 12:12] LABS: ALBUMIN 3.6 g/dl (3.4-5.0)
[2022-12-19] MEDS: THIAMINE HCL 100 MG TABLET (FP) PO SCH (22:13)
[2022-12-19] MEDS: risperiDONE 2 MG TABLET PO SCH (22:13)
[2022-12-19] MEDS: traZODone HCL 50 MG TABLET (FP) PO SCH (22:13)
[2022-12-20] MEDS: chlordiazePOXIDE HCL 25 MG CAPSULE PO SCH ×4 (05:39→22:09)
[2022-12-20] MEDS: amLODIPine BESYLATE 5 MG TABLET (FP) PO SCH (10:10)
[2022-12-20] MEDS: RAMIPRIL 5 MG CAPSULE PO SCH (10:10)
[2022-12-20] MEDS: HYDROCHLOROTHIAZIDE 25 MG TABLET (FP) PO SCH (10:10)
[2022-12-20] MEDS: GABAPENTIN 300 MG CAPSULE PO SCH ×2 (10:10→22:09)
[2022-12-20] MEDS: PRENATAL VITAMINS W/ FOLIC ACID TABLET (FP) PO SCH (10:11)
[2022-12-20] MEDS: POTASSIUM CHLORIDE ORAL LIQUID 20 MEQ/15 ML PO SCH ×2 (10:14→22:09)
[2022-12-20] MEDS: BENZTROPINE MESYLATE 1 MG TABLET PO SCH ×2 (10:16→22:08)
[2022-12-20] MEDS: NICOTINE 21 MG/24 HOURS TOPICAL PATCH TD SCH (10:17)
[2022-12-20] MEDS: THIAMINE HCL 100 MG TABLET (FP) PO SCH (22:09)
[2022-12-20] MEDS: traZODone HCL 50 MG TABLET (FP) PO SCH (22:09)
[2022-12-20] MEDS: risperiDONE 2 MG TABLET PO SCH (22:09)
[2022-12-21] MEDS: chlordiazePOXIDE HCL 10 MG CAPSULE PO SCH ×4 (05:48→22:14)
[2022-12-21] MEDS: POTASSIUM CHLORIDE ORAL LIQUID 20 MEQ/15 ML PO SCH ×2 (10:51→22:14)
[2022-12-21] MEDS: BENZTROPINE MESYLATE 1 MG TABLET PO SCH ×2 (10:51→22:13)
[2022-12-21] MEDS: GABAPENTIN 300 MG CAPSULE PO SCH ×2 (10:51→22:12)
[2022-12-21] MEDS: amLODIPine BESYLATE 5 MG TABLET (FP) PO SCH (10:52)
[2022-12-21] MEDS: HYDROCHLOROTHIAZIDE 25 MG TABLET (FP) PO SCH (10:52)
[2022-12-21] MEDS: RAMIPRIL 5 MG CAPSULE PO SCH (10:52)
[2022-12-21] MEDS: NICOTINE 21 MG/24 HOURS TOPICAL PATCH TD SCH (10:53)
[2022-12-21] MEDS: PRENATAL VITAMINS W/ FOLIC ACID TABLET (FP) PO SCH (10:53)
[2022-12-21] MEDS: traZODone HCL 50 MG TABLET (FP) PO SCH (22:13)
[2022-12-21] MEDS: risperiDONE 2 MG TABLET PO SCH (22:13)
[2022-12-21] MEDS: THIAMINE HCL 100 MG TABLET (FP) PO SCH (22:21)
[2022-12-22] MEDS: chlordiazePOXIDE HCL 10 MG CAPSULE PO SCH ×2 (05:30→17:39)
[2022-12-22] MEDS: PRENATAL VITAMINS W/ FOLIC ACID TABLET (FP) PO SCH (10:25)
[2022-12-22] MEDS: NICOTINE 21 MG/24 HOURS TOPICAL PATCH TD SCH (10:25)
[2022-12-22] MEDS: RAMIPRIL 5 MG CAPSULE PO SCH (10:26)
[2022-12-22] MEDS: GABAPENTIN 300 MG CAPSULE PO SCH ×2 (10:27→22:25)
[2022-12-22] MEDS: amLODIPine BESYLATE 5 MG TABLET (FP) PO SCH (10:27)
[2022-12-22] MEDS: BENZTROPINE MESYLATE 1 MG TABLET PO SCH ×2 (10:27→22:24)
[2022-12-22] MEDS: HYDROCHLOROTHIAZIDE 25 MG TABLET (FP) PO SCH (10:27)
[2022-12-22] MEDS: POTASSIUM CHLORIDE ORAL LIQUID 20 MEQ/15 ML PO SCH ×2 (10:28→22:23)
[2022-12-22] MEDS: THIAMINE HCL 100 MG TABLET (FP) PO SCH (22:24)
[2022-12-22] MEDS: traZODone HCL 50 MG TABLET (FP) PO SCH (22:25)
[2022-12-22] MEDS: risperiDONE 2 MG TABLET PO SCH (22:25)
[2022-12-23] MEDS ORDERED: chlordiazePOXIDE HCL 10 MG CAPSULE PO ONE (05:00)
[2022-12-23] MEDS: PRENATAL VITAMINS W/ FOLIC ACID TABLET (FP) PO SCH (10:11)
[2022-12-23] MEDS: HYDROCHLOROTHIAZIDE 25 MG TABLET (FP) PO SCH (10:12)
[2022-12-23] MEDS: BENZTROPINE MESYLATE 1 MG TABLET PO SCH (10:12)
[2022-12-23] MEDS: amLODIPine BESYLATE 5 MG TABLET (FP) PO SCH (10:12)
[2022-12-23] MEDS: GABAPENTIN 300 MG CAPSULE PO SCH (10:12)
[2022-12-23] MEDS: RAMIPRIL 5 MG CAPSULE PO SCH (10:12)
[2022-12-23] MEDS: NICOTINE 21 MG/24 HOURS TOPICAL PATCH TD SCH (10:14)
[2022-12-23 14:24] VITALS: BP 109/60; PULSE 84; RESP 16; TEMP 97.3
== END 2022-12-23 12:37 | disposition other institution (70) | DRG 774 ==
LOC: YASAS 12:00 → Y6N 13:48
PROVIDERS: ADMIT Allergy & Immunology; ATTEND Surgery
PROC: HZ2ZZZZ Detoxification Services for Substance Abuse Treatment (ICD-10-PCS; principal; 2022-12-18)
DX: F10.230 Alcohol dependence with withdrawal, uncomplicated (principal); F14.20 Cocaine dependence, uncomplicated; F12.20 Cannabis dependence, uncomplicated; F17.210 Nicotine dependence, cigarettes, uncomplicated; F31.81 Bipolar II disorder; F25.0 Schizoaffective disorder, bipolar type; F19.282 Other psychoactive substance dependence with psychoactive substance-induced sleep disorder; F19.280 Other psychoactive substance dependence with psychoactive substance-induced anxiety disorder; F19.24 Other psychoactive substance dependence with psychoactive substance-induced mood disorder; E87.6 Hypokalemia; I10 Essential (primary) hypertension; K21.9 Gastro-esophageal reflux disease without esophagitis; Z62.810 Personal history of physical and sexual abuse in childhood; Z86.718 Personal history of other venous thrombosis and embolism
CPT/HCPCS: 36415; 80053; 85027; 86780; 87811; C9803-CS; U0003; U0005

== ENCOUNTER 2022-12-23 12:15 | Inpatient (IN) | payer OTHER ==
[2022-12-23] MEDS ORDERED: LOPERAMIDE HCL 2 MG CAPSULE PO PRN (12:30)
[2022-12-23] MEDS ORDERED: IBUPROFEN 400 MG TABLET (FP) PO PRN (12:30)
[2022-12-23] MEDS ORDERED: MAG HYDROX/AL HYDROX/SIMETH 30 ML UNIT-DOSE CUP PO PRN (12:30)
[2022-12-23] MEDS ORDERED: POLYETHYLENE GLYCOL (HEALTHYLAX) 3350 17 GM PACKET PO PRN (12:30)
[2022-12-23] MEDS ORDERED: NICOTINE 10 MG CARTRIDGE (INHALER) IH PRN (12:30)
[2022-12-23] MEDS ORDERED: MAGNESIUM HYDROX 2400MG/30ML ORAL SUSPENSION 30 ML CUP PO PRN (12:30)
[2022-12-23] MEDS ORDERED: BENZONATATE 200 MG CAPSULE PO PRN (12:30)
[2022-12-23] MEDS ORDERED: BENZOCAINE/MENTHOL (CHLORASEPTIC ) LOZENGE MM PRN (12:30)
[2022-12-23] MEDS ORDERED: IBUPROFEN 600 MG TABLET (FP) PO PRN (12:30)
[2022-12-23] MEDS ORDERED: hydrOXYzine PAMOATE 25 MG CAPSULE (FP) PO PRN (12:30)
[2022-12-23] MEDS ORDERED: NICOTINE POLACRILEX 4 MG GUM BUC PRN (12:30)
[2022-12-23] MEDS ORDERED: guaiFENesin 600 MG TABLET.ER (FP) PO PRN (12:30)
[2022-12-23] MEDS: BENZTROPINE MESYLATE 0.5 MG TABLET (FP) PO SCH (21:08)
[2022-12-23] MEDS: risperiDONE 2 MG TABLET PO SCH (21:08)
[2022-12-23] MEDS: THIAMINE HCL 100 MG TABLET (FP) PO SCH (21:08)
[2022-12-23] MEDS: traZODone HCL 50 MG TABLET (FP) PO SCH (21:08)
[2022-12-23] MEDS: MELATONIN 5 MG TABLETS PO SCH (21:08)
[2022-12-23] MEDS: GABAPENTIN 300 MG CAPSULE PO SCH (21:08)
[2022-12-24] MEDS: GABAPENTIN 300 MG CAPSULE PO SCH ×2 (09:54→21:16)
[2022-12-24] MEDS: amLODIPine BESYLATE 5 MG TABLET (FP) PO SCH (09:54)
[2022-12-24] MEDS: HYDROCHLOROTHIAZIDE 25 MG TABLET (FP) PO SCH (09:54)
[2022-12-24] MEDS: PRENATAL VITAMINS W/ FOLIC ACID TABLET (FP) PO SCH (09:54)
[2022-12-24] MEDS: RAMIPRIL 5 MG CAPSULE PO SCH (09:54)
[2022-12-24] MEDS: NICOTINE 21 MG/24 HOURS TOPICAL PATCH TD PRN (09:55)
[2022-12-24] MEDS: BENZTROPINE MESYLATE 0.5 MG TABLET (FP) PO SCH ×2 (10:25→21:17)
[2022-12-24] MEDS: THIAMINE HCL 100 MG TABLET (FP) PO SCH (21:16)
[2022-12-24] MEDS: traZODone HCL 50 MG TABLET (FP) PO SCH (21:16)
[2022-12-24] MEDS: risperiDONE 2 MG TABLET PO SCH (21:16)
[2022-12-24] MEDS: MELATONIN 5 MG TABLETS PO SCH (21:16)
[2022-12-25] MEDS: HYDROCHLOROTHIAZIDE 25 MG TABLET (FP) PO SCH (09:48)
[2022-12-25] MEDS: PRENATAL VITAMINS W/ FOLIC ACID TABLET (FP) PO SCH (09:48)
[2022-12-25] MEDS: RAMIPRIL 5 MG CAPSULE PO SCH (09:48)
[2022-12-25] MEDS: BENZTROPINE MESYLATE 0.5 MG TABLET (FP) PO SCH ×2 (09:48→21:24)
[2022-12-25] MEDS: amLODIPine BESYLATE 5 MG TABLET (FP) PO SCH (09:48)
[2022-12-25] MEDS: GABAPENTIN 300 MG CAPSULE PO SCH ×2 (09:48→21:25)
[2022-12-25] MEDS: NICOTINE 21 MG/24 HOURS TOPICAL PATCH TD PRN (09:50)
[2022-12-25] MEDS: risperiDONE 2 MG TABLET PO SCH (21:24)
[2022-12-25] MEDS: traZODone HCL 50 MG TABLET (FP) PO SCH (21:24)
[2022-12-25] MEDS: MELATONIN 5 MG TABLETS PO SCH (21:24)
[2022-12-25] MEDS: THIAMINE HCL 100 MG TABLET (FP) PO SCH (21:25)
[2022-12-26] MEDS: BENZTROPINE MESYLATE 0.5 MG TABLET (FP) PO SCH ×2 (09:43→21:32)
[2022-12-26] MEDS: RAMIPRIL 5 MG CAPSULE PO SCH (09:43)
[2022-12-26] MEDS: HYDROCHLOROTHIAZIDE 25 MG TABLET (FP) PO SCH (09:43)
[2022-12-26] MEDS: GABAPENTIN 300 MG CAPSULE PO SCH ×2 (09:44→21:33)
[2022-12-26] MEDS: PRENATAL VITAMINS W/ FOLIC ACID TABLET (FP) PO SCH (09:44)
[2022-12-26] MEDS: amLODIPine BESYLATE 5 MG TABLET (FP) PO SCH (09:44)
[2022-12-26] MEDS: NICOTINE 21 MG/24 HOURS TOPICAL PATCH TD PRN (09:45)
[2022-12-26] MEDS: LIDOCAINE PATCH REMOVAL MC SCH (21:31)
[2022-12-26] MEDS: THIAMINE HCL 100 MG TABLET (FP) PO SCH (21:32)
[2022-12-26] MEDS: MELATONIN 5 MG TABLETS PO SCH (21:32)
[2022-12-26] MEDS: traZODone HCL 50 MG TABLET (FP) PO SCH (21:33)
[2022-12-26] MEDS: risperiDONE 2 MG TABLET PO SCH (21:33)
[2022-12-26] MEDS: ACETAMINOPHEN 325 MG TABLET (FP) PO PRN (21:33)
[2022-12-27] MEDS: ACETAMINOPHEN 325 MG TABLET (FP) PO PRN (06:16)
[2022-12-27] MEDS: LIDOCAINE 5% TOPICAL PATCH TP SCH (09:09)
[2022-12-27] MEDS: HYDROCHLOROTHIAZIDE 25 MG TABLET (FP) PO SCH (09:11)
[2022-12-27] MEDS: RAMIPRIL 5 MG CAPSULE PO SCH (09:11)
[2022-12-27] MEDS: GABAPENTIN 300 MG CAPSULE PO SCH ×2 (09:11→21:25)
[2022-12-27] MEDS: BENZTROPINE MESYLATE 0.5 MG TABLET (FP) PO SCH ×2 (09:11→21:25)
[2022-12-27] MEDS: amLODIPine BESYLATE 5 MG TABLET (FP) PO SCH (09:11)
[2022-12-27] MEDS: PRENATAL VITAMINS W/ FOLIC ACID TABLET (FP) PO SCH (09:11)
[2022-12-27] MEDS: NICOTINE 21 MG/24 HOURS TOPICAL PATCH TD PRN (09:13)
[2022-12-27 11:57] LABS: HEMATOCRIT 39.3 % (35.4-49); HEMOGLOBIN 13.3 GM/dL (11.7-16.9); MCH 29.4 pg (25.7-33.7); MCHC 33.9 g/dl (32.0-35.9); MEAN CELL VOLUME 86.7 fl (80-96); MEAN PLT VOLUME 8.9 fl (7.5-11.1); PLATELET COUNT 251 10^3/uL (134-434); RBC 4.54 M/mm3 (4.00-5.60); RDW 16.3 % (11.9-15.9); WHITE BLOOD COUNT 13.8 K/mm3 (4.0-10.0)
[2022-12-27 12:04] LABS: URINE APPEARANCE CLEAR; URINE BILIRUBIN NEGATIVE (NEGATIVE); URINE COLOR YELLOW; URINE GLUCOSE (UA) NEGATIVE (NEGATIVE); URINE KETONE NEGATIVE (NEGATIVE); URINE LEUK ESTERASE NEGATIVE (NEGATIVE); URINE NITRITE NEGATIVE (NEGATIVE); URINE PROTEIN NEGATIVE (NEGATIVE); URINE UROBILINOGEN 0.2 mg/dL (0.2-1.0)
[2022-12-27 12:05] LABS: INR 1.01 (0.83-1.09); PROTHROMBIN TIME (PATIENT) 11.7 SEC (9.7-13.0)
[2022-12-27 12:08] LABS: ALBUMIN 3.9 g/dl (3.4-5.0); BLOOD UREA NITROGEN 13.9 mg/dL (7-18)
[2022-12-27 12:11] LABS: CREATININE 1.2 mg/dL (0.55-1.3)
[2022-12-27 12:13] LABS: BILIRUBIN,TOTAL 0.7 mg/dL (0.2-1); TOT PROT 7.3 g/dl (6.4-8.2)
[2022-12-27] MEDS: LIDOCAINE PATCH REMOVAL MC SCH (21:24)
[2022-12-27] MEDS: MELATONIN 5 MG TABLETS PO SCH (21:25)
[2022-12-27] MEDS: traZODone HCL 50 MG TABLET (FP) PO SCH (21:25)
[2022-12-27] MEDS: risperiDONE 2 MG TABLET PO SCH (21:25)
[2022-12-27] MEDS: THIAMINE HCL 100 MG TABLET (FP) PO SCH (21:25)
[2022-12-28] MEDS: ACETAMINOPHEN 325 MG TABLET (FP) PO PRN (06:20)
[2022-12-28] MEDS: GABAPENTIN 300 MG CAPSULE PO SCH ×2 (09:29→21:15)
[2022-12-28] MEDS: amLODIPine BESYLATE 5 MG TABLET (FP) PO SCH (09:29)
[2022-12-28] MEDS: BENZTROPINE MESYLATE 0.5 MG TABLET (FP) PO SCH ×2 (09:29→21:15)
[2022-12-28] MEDS: LIDOCAINE 5% TOPICAL PATCH TP SCH (09:29)
[2022-12-28] MEDS: HYDROCHLOROTHIAZIDE 25 MG TABLET (FP) PO SCH (09:29)
[2022-12-28] MEDS: NICOTINE 21 MG/24 HOURS TOPICAL PATCH TD PRN (09:31)
[2022-12-28] MEDS: RAMIPRIL 5 MG CAPSULE PO SCH (09:31)
[2022-12-28] MEDS: PRENATAL VITAMINS W/ FOLIC ACID TABLET (FP) PO SCH (09:31)
[2022-12-28] MEDS: METHOCARBAMOL 500 MG TABLET PO PRN (13:16)
[2022-12-28] MEDS: traZODone HCL 50 MG TABLET (FP) PO SCH (21:15)
[2022-12-28] MEDS: MELATONIN 5 MG TABLETS PO SCH (21:15)
[2022-12-28] MEDS: THIAMINE HCL 100 MG TABLET (FP) PO SCH (21:15)
[2022-12-28] MEDS: risperiDONE 2 MG TABLET PO SCH (21:15)
[2022-12-28] MEDS: LIDOCAINE PATCH REMOVAL MC SCH (21:16)
[2022-12-29] MEDS: METHOCARBAMOL 500 MG TABLET PO PRN (06:20)
[2022-12-29] MEDS: BENZTROPINE MESYLATE 0.5 MG TABLET (FP) PO SCH ×2 (09:25→21:20)
[2022-12-29] MEDS: RAMIPRIL 5 MG CAPSULE PO SCH (09:25)
[2022-12-29] MEDS: HYDROCHLOROTHIAZIDE 25 MG TABLET (FP) PO SCH (09:25)
[2022-12-29] MEDS: amLODIPine BESYLATE 5 MG TABLET (FP) PO SCH (09:25)
[2022-12-29] MEDS: GABAPENTIN 300 MG CAPSULE PO SCH ×2 (09:25→21:19)
[2022-12-29] MEDS: LIDOCAINE 5% TOPICAL PATCH TP SCH (09:26)
[2022-12-29] MEDS: PRENATAL VITAMINS W/ FOLIC ACID TABLET (FP) PO SCH (09:26)
[2022-12-29] MEDS: NICOTINE 21 MG/24 HOURS TOPICAL PATCH TD PRN (09:27)
[2022-12-29] MEDS: traZODone HCL 50 MG TABLET (FP) PO SCH (21:19)
[2022-12-29] MEDS: risperiDONE 2 MG TABLET PO SCH (21:19)
[2022-12-29] MEDS: THIAMINE HCL 100 MG TABLET (FP) PO SCH (21:20)
[2022-12-29] MEDS: MELATONIN 5 MG TABLETS PO SCH (21:20)
[2022-12-29] MEDS: LIDOCAINE PATCH REMOVAL MC SCH (21:20)
[2022-12-30] MEDS: ACETAMINOPHEN 325 MG TABLET (FP) PO PRN (06:44)
[2022-12-30] MEDS: LIDOCAINE 5% TOPICAL PATCH TP SCH (09:33)
[2022-12-30] MEDS: amLODIPine BESYLATE 5 MG TABLET (FP) PO SCH (09:34)
[2022-12-30] MEDS: GABAPENTIN 300 MG CAPSULE PO SCH ×2 (09:34→21:24)
[2022-12-30] MEDS: BENZTROPINE MESYLATE 0.5 MG TABLET (FP) PO SCH ×2 (09:34→21:24)
[2022-12-30] MEDS: HYDROCHLOROTHIAZIDE 25 MG TABLET (FP) PO SCH (09:34)
[2022-12-30] MEDS: PRENATAL VITAMINS W/ FOLIC ACID TABLET (FP) PO SCH (09:35)
[2022-12-30] MEDS: NICOTINE 21 MG/24 HOURS TOPICAL PATCH TD PRN (09:35)
[2022-12-30] MEDS: RAMIPRIL 5 MG CAPSULE PO SCH (09:35)
[2022-12-30] MEDS: risperiDONE 2 MG TABLET PO SCH (21:24)
[2022-12-30] MEDS: THIAMINE HCL 100 MG TABLET (FP) PO SCH (21:25)
[2022-12-30] MEDS: traZODone HCL 50 MG TABLET (FP) PO SCH (21:25)
[2022-12-30] MEDS: LIDOCAINE PATCH REMOVAL MC SCH (21:26)
[2022-12-30] MEDS: MELATONIN 5 MG TABLETS PO SCH (21:26)
[2022-12-31] MEDS: HYDROCHLOROTHIAZIDE 25 MG TABLET (FP) PO SCH (10:07)
[2022-12-31] MEDS: GABAPENTIN 300 MG CAPSULE PO SCH ×2 (10:07→21:10)
[2022-12-31] MEDS: PRENATAL VITAMINS W/ FOLIC ACID TABLET (FP) PO SCH (10:07)
[2022-12-31] MEDS: amLODIPine BESYLATE 5 MG TABLET (FP) PO SCH (10:07)
[2022-12-31] MEDS: BENZTROPINE MESYLATE 0.5 MG TABLET (FP) PO SCH ×2 (10:08→21:10)
[2022-12-31] MEDS: RAMIPRIL 5 MG CAPSULE PO SCH (10:09)
[2022-12-31] MEDS: LIDOCAINE 5% TOPICAL PATCH TP SCH (10:09)
[2022-12-31] MEDS: NICOTINE 21 MG/24 HOURS TOPICAL PATCH TD PRN (10:10)
[2022-12-31] MEDS: MELATONIN 5 MG TABLETS PO SCH (21:10)
[2022-12-31] MEDS: THIAMINE HCL 100 MG TABLET (FP) PO SCH (21:10)
[2022-12-31] MEDS: risperiDONE 2 MG TABLET PO SCH (21:10)
[2022-12-31] MEDS: traZODone HCL 50 MG TABLET (FP) PO SCH (21:10)
[2022-12-31] MEDS: LIDOCAINE PATCH REMOVAL MC SCH (22:14)
[2023-01-01] MEDS: RAMIPRIL 5 MG CAPSULE PO SCH (09:47)
[2023-01-01] MEDS: BENZTROPINE MESYLATE 0.5 MG TABLET (FP) PO SCH ×2 (09:48→21:23)
[2023-01-01] MEDS: HYDROCHLOROTHIAZIDE 25 MG TABLET (FP) PO SCH (09:48)
[2023-01-01] MEDS: amLODIPine BESYLATE 5 MG TABLET (FP) PO SCH (09:48)
[2023-01-01] MEDS: LIDOCAINE 5% TOPICAL PATCH TP SCH (09:48)
[2023-01-01] MEDS: GABAPENTIN 300 MG CAPSULE PO SCH ×2 (09:48→21:23)
[2023-01-01] MEDS: NICOTINE 21 MG/24 HOURS TOPICAL PATCH TD PRN (09:49)
[2023-01-01] MEDS: PRENATAL VITAMINS W/ FOLIC ACID TABLET (FP) PO SCH (09:49)
[2023-01-01] MEDS: traZODone HCL 50 MG TABLET (FP) PO SCH (21:23)
[2023-01-01] MEDS: risperiDONE 2 MG TABLET PO SCH (21:23)
[2023-01-01] MEDS: THIAMINE HCL 100 MG TABLET (FP) PO SCH (21:23)
[2023-01-01] MEDS: MELATONIN 5 MG TABLETS PO SCH (21:23)
[2023-01-01] MEDS: LIDOCAINE PATCH REMOVAL MC SCH (21:23)
[2023-01-02 06:41] VITALS: RESP 16
[2023-01-02] MEDS: GABAPENTIN 300 MG CAPSULE PO SCH ×2 (09:49→21:06)
[2023-01-02] MEDS: LIDOCAINE 5% TOPICAL PATCH TP SCH (09:49)
[2023-01-02] MEDS: HYDROCHLOROTHIAZIDE 25 MG TABLET (FP) PO SCH (09:49)
[2023-01-02] MEDS: BENZTROPINE MESYLATE 0.5 MG TABLET (FP) PO SCH ×2 (09:49→21:06)
[2023-01-02] MEDS: amLODIPine BESYLATE 5 MG TABLET (FP) PO SCH (09:49)
[2023-01-02] MEDS: PRENATAL VITAMINS W/ FOLIC ACID TABLET (FP) PO SCH (09:50)
[2023-01-02] MEDS: RAMIPRIL 5 MG CAPSULE PO SCH (09:50)
[2023-01-02] MEDS: NICOTINE 21 MG/24 HOURS TOPICAL PATCH TD PRN (09:51)
[2023-01-02 10:58] LABS: HEMATOCRIT 35.3 % (35.4-49); HEMOGLOBIN 12.5 GM/dL (11.7-16.9); MCH 30.5 pg (25.7-33.7); MCHC 35.4 g/dl (32.0-35.9); MEAN CELL VOLUME 86.1 fl (80-96); PLATELET COUNT 286 10^3/uL (134-434); RDW 15.6 % (11.9-15.9); WHITE BLOOD COUNT 7.3 K/mm3 (4.0-10.0)
[2023-01-02] MEDS: THIAMINE HCL 100 MG TABLET (FP) PO SCH (21:06)
[2023-01-02] MEDS: traZODone HCL 50 MG TABLET (FP) PO SCH (21:06)
[2023-01-02] MEDS: risperiDONE 2 MG TABLET PO SCH (21:06)
[2023-01-02] MEDS: LIDOCAINE PATCH REMOVAL MC SCH (21:07)
[2023-01-02] MEDS: MELATONIN 5 MG TABLETS PO SCH (21:07)
[2023-01-03] MEDS: HYDROCHLOROTHIAZIDE 25 MG TABLET (FP) PO SCH (09:33)
[2023-01-03] MEDS: BENZTROPINE MESYLATE 0.5 MG TABLET (FP) PO SCH ×2 (09:33→21:19)
[2023-01-03] MEDS: RAMIPRIL 5 MG CAPSULE PO SCH (09:33)
[2023-01-03] MEDS: LIDOCAINE 5% TOPICAL PATCH TP SCH (09:34)
[2023-01-03] MEDS: amLODIPine BESYLATE 5 MG TABLET (FP) PO SCH (09:34)
[2023-01-03] MEDS: GABAPENTIN 300 MG CAPSULE PO SCH ×2 (09:34→21:20)
[2023-01-03] MEDS: PRENATAL VITAMINS W/ FOLIC ACID TABLET (FP) PO SCH (09:34)
[2023-01-03] MEDS: NICOTINE 21 MG/24 HOURS TOPICAL PATCH TD PRN (09:35)
[2023-01-03 11:24] LABS: BASO % 0.8 % (0-2.0); EOS % 1.7 % (0-4.5); HEMATOCRIT 35.2 % (35.4-49); HEMOGLOBIN 12.2 GM/dL (11.7-16.9); LYMPH % 25.4 % (8-40); MCH 29.8 pg (25.7-33.7); MCHC 34.7 g/dl (32.0-35.9); MEAN CELL VOLUME 85.9 fl (80-96); MEAN PLT VOLUME 7.8 fl (7.5-11.1); MONO % 6.3 % (3.8-10.2); NEUT % 65.8 % (42.8-82.8); PLATELET COUNT 271 10^3/uL (134-434); RBC 4.09 M/mm3 (4.00-5.60); RDW 15.5 % (11.9-15.9); WHITE BLOOD COUNT 7.8 K/mm3 (4.0-10.0)
[2023-01-03] MEDS: THIAMINE HCL 100 MG TABLET (FP) PO SCH (21:19)
[2023-01-03] MEDS: risperiDONE 2 MG TABLET PO SCH (21:19)
[2023-01-03] MEDS: traZODone HCL 50 MG TABLET (FP) PO SCH (21:19)
[2023-01-03] MEDS: LIDOCAINE PATCH REMOVAL MC SCH (21:20)
[2023-01-03] MEDS: MELATONIN 5 MG TABLETS PO SCH (21:20)
[2023-01-04 06:36] VITALS: TEMP 97.5
[2023-01-04 08:57] VITALS: BP 152/83; PULSE 87
[2023-01-04] MEDS: amLODIPine BESYLATE 5 MG TABLET (FP) PO SCH (09:00)
[2023-01-04] MEDS: GABAPENTIN 300 MG CAPSULE PO SCH (09:00)
[2023-01-04] MEDS: RAMIPRIL 5 MG CAPSULE PO SCH (09:00)
[2023-01-04] MEDS: PRENATAL VITAMINS W/ FOLIC ACID TABLET (FP) PO SCH (09:00)
[2023-01-04] MEDS: HYDROCHLOROTHIAZIDE 25 MG TABLET (FP) PO SCH (09:00)
[2023-01-04] MEDS: LIDOCAINE 5% TOPICAL PATCH TP SCH (09:01)
[2023-01-04] MEDS: BENZTROPINE MESYLATE 0.5 MG TABLET (FP) PO SCH (09:01)
== END 2023-01-04 09:06 | disposition home or self-care (01) | DRG 772 ==
LOC: YASAS 12:15 → Y3E 12:17
PROVIDERS: ADMIT Allergy & Immunology; ATTEND Psychiatry & Neurology Pain Medicine
PROC: HZ42ZZZ Group Counseling for Substance Abuse Treatment, Cognitive-Behavioral (ICD-10-PCS; principal; 2022-12-23)
DX: F10.20 Alcohol dependence, uncomplicated (principal); F14.20 Cocaine dependence, uncomplicated; F12.20 Cannabis dependence, uncomplicated; F17.210 Nicotine dependence, cigarettes, uncomplicated; E87.6 Hypokalemia; R10.30 Lower abdominal pain, unspecified
CPT/HCPCS: 36415; 80053; 81003; 82140; 83036; 84132; 85025; 85027; 85610; 86803; 87086

== ENCOUNTER 2023-03-09 11:00 | Inpatient (IN) | payer OTHER ==
[2023-03-09 11:37] VITALS: BMI 26.1
[2023-03-09] MEDS ORDERED: NICOTINE 10 MG CARTRIDGE (INHALER) IH PRN (12:22)
[2023-03-09] MEDS ORDERED: LOPERAMIDE HCL 2 MG CAPSULE PO PRN (12:22)
[2023-03-09] MEDS ORDERED: METHOCARBAMOL 500 MG TABLET PO PRN (12:22)
[2023-03-09] MEDS ORDERED: NALOXONE HCL 0.4 MG/ML VIAL IM PRN (12:22)
[2023-03-09] MEDS ORDERED: POLYETHYLENE GLYCOL (HEALTHYLAX) 3350 17 GM PACKET PO PRN (12:22)
[2023-03-09] MEDS ORDERED: IBUPROFEN 400 MG TABLET (FP) PO PRN (12:22)
[2023-03-09] MEDS ORDERED: BISMUTH SUBSALICYLATE 524 MG/30 ML PO PRN (12:22)
[2023-03-09] MEDS ORDERED: DICYCLOMINE HCL 10 MG CAPSULE PO PRN (12:22)
[2023-03-09] MEDS ORDERED: guaiFENesin 600 MG TABLET.ER (FP) PO PRN (12:22)
[2023-03-09] MEDS ORDERED: BENZONATATE 200 MG CAPSULE PO PRN (12:22)
[2023-03-09] MEDS ORDERED: NALOXONE HCL (KLOXXADO) 8 MG SPRAY NS PRN (12:22)
[2023-03-09] MEDS ORDERED: MAGNESIUM HYDROX 2400MG/30ML ORAL SUSPENSION 30 ML CUP PO PRN (12:22)
[2023-03-09] MEDS ORDERED: BENZOCAINE/MENTHOL (CHLORASEPTIC ) LOZENGE MM PRN (12:22)
[2023-03-09] MEDS ORDERED: MAG HYDROX/AL HYDROX/SIMETH 30 ML UNIT-DOSE CUP PO PRN (12:22)
[2023-03-09] MEDS ORDERED: IBUPROFEN 600 MG TABLET (FP) PO PRN (12:22)
[2023-03-09] MEDS ORDERED: ONDANSETRON *ODT* 4 MG TABLET SL PRN (12:22)
[2023-03-09] MEDS ORDERED: ACETAMINOPHEN 325 MG TABLET (FP) PO PRN (12:22)
[2023-03-09] MEDS ORDERED: PRENATAL VITAMINS W/ FOLIC ACID TABLET (FP) PO ONE (13:08)
[2023-03-09] MEDS: PRENATAL VITAMINS W/ FOLIC ACID TABLET (FP) PO SCH (16:16)
[2023-03-09] MEDS ORDERED: MELATONIN 5 MG TABLETS PO SCH (22:00)
[2023-03-09] MEDS: THIAMINE HCL 100 MG TABLET (FP) PO SCH (22:12)
[2023-03-09] MEDS: hydrOXYzine PAMOATE 25 MG CAPSULE (FP) PO PRN (22:13)
[2023-03-10] MEDS: hydrOXYzine PAMOATE 25 MG CAPSULE (FP) PO PRN (10:04)
[2023-03-10] MEDS: PRENATAL VITAMINS W/ FOLIC ACID TABLET (FP) PO SCH (10:04)
[2023-03-10] MEDS: amLODIPine BESYLATE 5 MG TABLET (FP) PO SCH (10:04)
[2023-03-10] MEDS: NICOTINE 21 MG/24 HOURS TOPICAL PATCH TD PRN (10:05)
[2023-03-10] MEDS ORDERED: LORazepam 1 MG TABLET PO PRN (10:59)
[2023-03-10 11:59] LABS: HEMATOCRIT 40.1 % (35.4-49); HEMOGLOBIN 13.2 GM/dL (11.7-16.9); MCHC 32.8 g/dl (32.0-35.9); MEAN CELL VOLUME 88.4 fl (80-96); MEAN PLT VOLUME 8.5 fl (7.5-11.1); PLATELET COUNT 241 10^3/uL (134-434); RBC 4.54 M/mm3 (4.00-5.60); RDW 16.5 % (11.9-15.9); WHITE BLOOD COUNT 5.5 K/mm3 (4.0-10.0)
[2023-03-10 12:11] LABS: POTASSIUM 3.9 mmol/L (3.5-5.1)
[2023-03-10 12:19] LABS: CALCIUM 9.3 mg/dL (8.5-10.1)
[2023-03-10 12:20] LABS: ALBUMIN 3.3 g/dl (3.4-5.0); BLOOD UREA NITROGEN 6.3 mg/dL (7-18)
[2023-03-10 12:23] LABS: CREATININE 0.8 mg/dL (0.55-1.3)
[2023-03-10 12:24] LABS: BILIRUBIN,TOTAL 0.5 mg/dL (0.2-1); TOT PROT 6.3 g/dl (6.4-8.2)
[2023-03-10] MEDS: LORazepam 2 MG TABLET PO SCH ×2 (17:22→22:22)
[2023-03-10] MEDS: traZODone HCL 50 MG TABLET (FP) PO SCH (22:21)
[2023-03-10] MEDS: GABAPENTIN 300 MG CAPSULE PO SCH (22:22)
[2023-03-10] MEDS: THIAMINE HCL 100 MG TABLET (FP) PO SCH (22:22)
[2023-03-10] MEDS: risperiDONE 2 MG TABLET PO SCH (22:22)
[2023-03-10] MEDS: BENZTROPINE MESYLATE 0.5 MG TABLET (FP) PO SCH (22:23)
[2023-03-11] MEDS: LORazepam 1 MG TABLET PO SCH ×4 (05:17→22:11)
[2023-03-11] MEDS: PRENATAL VITAMINS W/ FOLIC ACID TABLET (FP) PO SCH (10:15)
[2023-03-11] MEDS: BENZTROPINE MESYLATE 0.5 MG TABLET (FP) PO SCH ×2 (10:15→22:10)
[2023-03-11] MEDS: GABAPENTIN 300 MG CAPSULE PO SCH ×2 (10:15→22:53)
[2023-03-11] MEDS: amLODIPine BESYLATE 5 MG TABLET (FP) PO SCH (10:15)
[2023-03-11] MEDS: NICOTINE 21 MG/24 HOURS TOPICAL PATCH TD PRN (10:16)
[2023-03-11] MEDS: traZODone HCL 50 MG TABLET (FP) PO SCH (22:09)
[2023-03-11] MEDS: THIAMINE HCL 100 MG TABLET (FP) PO SCH (22:09)
[2023-03-11] MEDS: risperiDONE 2 MG TABLET PO SCH (22:10)
[2023-03-12] MEDS ORDERED: LORazepam 0.5 MG TABLET PO PRN
[2023-03-12] MEDS: LORazepam 0.5 MG TABLET PO SCH ×4 (06:08→22:27)
[2023-03-12] MEDS: PRENATAL VITAMINS W/ FOLIC ACID TABLET (FP) PO SCH (10:08)
[2023-03-12] MEDS: NICOTINE 21 MG/24 HOURS TOPICAL PATCH TD PRN (10:09)
[2023-03-12] MEDS: GABAPENTIN 300 MG CAPSULE PO SCH ×2 (10:10→22:28)
[2023-03-12] MEDS: amLODIPine BESYLATE 5 MG TABLET (FP) PO SCH (10:10)
[2023-03-12] MEDS: BENZTROPINE MESYLATE 0.5 MG TABLET (FP) PO SCH ×2 (10:10→22:28)
[2023-03-12] MEDS: risperiDONE 2 MG TABLET PO SCH (22:28)
[2023-03-12] MEDS: traZODone HCL 50 MG TABLET (FP) PO SCH (22:28)
[2023-03-12] MEDS: THIAMINE HCL 100 MG TABLET (FP) PO SCH (22:28)
[2023-03-13] MEDS ORDERED: LORazepam 0.5 MG TABLET PO ONE (05:00)
[2023-03-13] MEDS: GABAPENTIN 300 MG CAPSULE PO SCH (09:14)
[2023-03-13] MEDS: PRENATAL VITAMINS W/ FOLIC ACID TABLET (FP) PO SCH (09:14)
[2023-03-13] MEDS: BENZTROPINE MESYLATE 0.5 MG TABLET (FP) PO SCH (09:14)
[2023-03-13 09:15] VITALS: BP 147/86; PULSE 89; RESP 17; TEMP 97.6
[2023-03-13] MEDS ORDERED: amLODIPine BESYLATE 5 MG TABLET (FP) PO SCH (10:00)
== END 2023-03-13 09:48 | disposition home or self-care (01) | DRG 774 ==
LOC: YASAS 11:00 → Y6N 12:49
PROVIDERS: ADMIT Allergy & Immunology; ATTEND Surgery
PROC: HZ2ZZZZ Detoxification Services for Substance Abuse Treatment (ICD-10-PCS; principal; 2023-03-09)
DX: F10.230 Alcohol dependence with withdrawal, uncomplicated (principal); F14.20 Cocaine dependence, uncomplicated; F12.20 Cannabis dependence, uncomplicated; F17.213 Nicotine dependence, cigarettes, with withdrawal; F20.0 Paranoid schizophrenia; F19.282 Other psychoactive substance dependence with psychoactive substance-induced sleep disorder; I10 Essential (primary) hypertension; K21.9 Gastro-esophageal reflux disease without esophagitis; Z86.19 Personal history of other infectious and parasitic diseases
CPT/HCPCS: 36415; 80053; 82140; 85027; 86780; 87635; 87811

== ENCOUNTER 2023-04-06 12:29 | Inpatient (IN) | payer OTHER ==
[2023-04-06 13:16] VITALS: BMI 25.7
[2023-04-06] MEDS ORDERED: MAGNESIUM HYDROX 2400MG/30ML ORAL SUSPENSION 30 ML CUP PO PRN (17:08)
[2023-04-06] MEDS ORDERED: LORazepam 1 MG TABLET PO PRN (17:08)
[2023-04-06] MEDS ORDERED: DICYCLOMINE HCL 10 MG CAPSULE PO PRN (17:08)
[2023-04-06] MEDS ORDERED: BISMUTH SUBSALICYLATE 524 MG/30 ML PO PRN (17:08)
[2023-04-06] MEDS ORDERED: BENZONATATE 200 MG CAPSULE PO PRN (17:08)
[2023-04-06] MEDS ORDERED: IBUPROFEN 600 MG TABLET (FP) PO PRN (17:08)
[2023-04-06] MEDS ORDERED: guaiFENesin 600 MG TABLET.ER (FP) PO PRN (17:08)
[2023-04-06] MEDS ORDERED: NALOXONE HCL (KLOXXADO) 8 MG SPRAY NS PRN (17:08)
[2023-04-06] MEDS ORDERED: ONDANSETRON *ODT* 4 MG TABLET SL PRN (17:08)
[2023-04-06] MEDS ORDERED: IBUPROFEN 400 MG TABLET (FP) PO PRN (17:08)
[2023-04-06] MEDS ORDERED: POLYETHYLENE GLYCOL (HEALTHYLAX) 3350 17 GM PACKET PO PRN (17:08)
[2023-04-06] MEDS ORDERED: ACETAMINOPHEN 325 MG TABLET (FP) PO PRN (17:08)
[2023-04-06] MEDS ORDERED: NALOXONE HCL 0.4 MG/ML VIAL IM PRN (17:08)
[2023-04-06] MEDS ORDERED: MAG HYDROX/AL HYDROX/SIMETH 30 ML UNIT-DOSE CUP PO PRN (17:08)
[2023-04-06] MEDS ORDERED: BENZOCAINE/MENTHOL (CHLORASEPTIC ) LOZENGE MM PRN (17:08)
[2023-04-06] MEDS ORDERED: LOPERAMIDE HCL 2 MG CAPSULE PO PRN (17:08)
[2023-04-06] MEDS ORDERED: LORazepam 2 MG TABLET ONE (17:48)
[2023-04-06] MEDS: LORazepam 2 MG TABLET PO SCH ×2 (17:51→22:16)
[2023-04-06] MEDS: hydrOXYzine PAMOATE 25 MG CAPSULE (FP) PO PRN (18:14)
[2023-04-06] MEDS ORDERED: MELATONIN 5 MG TABLETS PO SCH (22:00)
[2023-04-06] MEDS: THIAMINE HCL 100 MG TABLET (FP) PO SCH (22:16)
[2023-04-06] MEDS: METHOCARBAMOL 500 MG TABLET PO PRN (22:17)
[2023-04-07] MEDS: LORazepam 2 MG TABLET PO SCH ×4 (05:54→22:24)
[2023-04-07] MEDS: amLODIPine BESYLATE 10 MG TABLET (FP) PO SCH (10:07)
[2023-04-07] MEDS: PRENATAL VITAMINS W/ FOLIC ACID TABLET (FP) PO SCH (10:07)
[2023-04-07] MEDS: hydrOXYzine PAMOATE 25 MG CAPSULE (FP) PO PRN (10:07)
[2023-04-07] MEDS: BENZTROPINE MESYLATE 1 MG TABLET PO SCH ×2 (10:07→22:23)
[2023-04-07] MEDS: GABAPENTIN 300 MG CAPSULE PO SCH ×2 (10:07→22:25)
[2023-04-07] MEDS: METHOCARBAMOL 500 MG TABLET PO PRN (10:07)
[2023-04-07 10:59] LABS: HEMATOCRIT 39.2 % (35.4-49); HEMOGLOBIN 13.7 GM/dL (11.7-16.9); MCH 30.2 pg (25.7-33.7); MCHC 35.1 g/dl (32.0-35.9); MEAN CELL VOLUME 86.1 fl (80-96); MEAN PLT VOLUME 7.5 fl (7.5-11.1); PLATELET COUNT 247 10^3/uL (134-434); RBC 4.55 M/mm3 (4.00-5.60); WHITE BLOOD COUNT 7.8 K/mm3 (4.0-10.0)
[2023-04-07 11:04] LABS: POTASSIUM 3.8 mmol/L (3.5-5.1)
[2023-04-07 11:09] LABS: CALCIUM 8.5 mg/dL (8.5-10.1)
[2023-04-07 11:10] LABS: ALBUMIN 3.5 g/dl (3.4-5.0); BLOOD UREA NITROGEN 14.5 mg/dL (7-18)
[2023-04-07 11:13] LABS: CREATININE 0.9 mg/dL (0.55-1.3)
[2023-04-07 11:15] LABS: BILIRUBIN,TOTAL 0.8 mg/dL (0.2-1); TOT PROT 6.7 g/dl (6.4-8.2)
[2023-04-07] MEDS: THIAMINE HCL 100 MG TABLET (FP) PO SCH (22:23)
[2023-04-07] MEDS: risperiDONE 1 MG TABLET PO SCH (22:24)
[2023-04-07] MEDS: traZODone HCL 50 MG TABLET (FP) PO SCH (22:24)
[2023-04-08] MEDS: LORazepam 1 MG TABLET PO SCH ×4 (05:22→22:11)
[2023-04-08] MEDS: BENZTROPINE MESYLATE 1 MG TABLET PO SCH ×2 (10:21→22:55)
[2023-04-08] MEDS: PRENATAL VITAMINS W/ FOLIC ACID TABLET (FP) PO SCH (10:21)
[2023-04-08] MEDS: amLODIPine BESYLATE 10 MG TABLET (FP) PO SCH (10:22)
[2023-04-08] MEDS: GABAPENTIN 300 MG CAPSULE PO SCH ×2 (10:22→22:11)
[2023-04-08] MEDS: hydrOXYzine PAMOATE 25 MG CAPSULE (FP) PO PRN (10:23)
[2023-04-08] MEDS: traZODone HCL 50 MG TABLET (FP) PO SCH (22:10)
[2023-04-08] MEDS: THIAMINE HCL 100 MG TABLET (FP) PO SCH (22:11)
[2023-04-08] MEDS: risperiDONE 1 MG TABLET PO SCH (22:11)
[2023-04-09] MEDS ORDERED: LORazepam 0.5 MG TABLET PO PRN
[2023-04-09] MEDS: LORazepam 0.5 MG TABLET PO SCH ×4 (05:25→22:02)
[2023-04-09] MEDS ORDERED: LISINOPRIL 10 MG TABLET PO SCH (06:00)
[2023-04-09] MEDS: GABAPENTIN 300 MG CAPSULE PO SCH ×2 (09:58→22:01)
[2023-04-09] MEDS: BENZTROPINE MESYLATE 1 MG TABLET PO SCH ×2 (09:58→22:00)
[2023-04-09] MEDS: PRENATAL VITAMINS W/ FOLIC ACID TABLET (FP) PO SCH (09:58)
[2023-04-09] MEDS: NICOTINE 21 MG/24 HOURS TOPICAL PATCH TD PRN (09:58)
[2023-04-09] MEDS: amLODIPine BESYLATE 10 MG TABLET (FP) PO SCH (09:58)
[2023-04-09 21:08] VITALS: RESP 18
[2023-04-09] MEDS: THIAMINE HCL 100 MG TABLET (FP) PO SCH (22:00)
[2023-04-09] MEDS: traZODone HCL 50 MG TABLET (FP) PO SCH (22:00)
[2023-04-09] MEDS: risperiDONE 1 MG TABLET PO SCH (22:01)
[2023-04-10] MEDS ORDERED: LORazepam 0.5 MG TABLET PO ONE (05:00)
[2023-04-10] MEDS ORDERED: LISINOPRIL 20 MG TABLET PO SCH (06:00)
[2023-04-10 09:02] VITALS: TEMP 97.6
[2023-04-10] MEDS: PRENATAL VITAMINS W/ FOLIC ACID TABLET (FP) PO SCH (09:54)
[2023-04-10] MEDS: amLODIPine BESYLATE 10 MG TABLET (FP) PO SCH (09:56)
[2023-04-10] MEDS: GABAPENTIN 300 MG CAPSULE PO SCH (09:56)
[2023-04-10] MEDS: BENZTROPINE MESYLATE 1 MG TABLET PO SCH (09:56)
[2023-04-10] MEDS: NICOTINE 21 MG/24 HOURS TOPICAL PATCH TD PRN (09:58)
[2023-04-10 13:05] VITALS: BP 133/76; PULSE 77
== END 2023-04-10 14:30 | disposition other institution (70) | DRG 774 ==
LOC: YASAS 12:29 → Y6N 17:11
PROVIDERS: ADMIT Allergy & Immunology; ATTEND Surgery
PROC: HZ2ZZZZ Detoxification Services for Substance Abuse Treatment (ICD-10-PCS; principal; 2023-04-06)
DX: F10.230 Alcohol dependence with withdrawal, uncomplicated (principal); F14.20 Cocaine dependence, uncomplicated; F12.20 Cannabis dependence, uncomplicated; F17.213 Nicotine dependence, cigarettes, with withdrawal; F25.0 Schizoaffective disorder, bipolar type; F19.982 Other psychoactive substance use, unspecified with psychoactive substance-induced sleep disorder; I10 Essential (primary) hypertension; K21.9 Gastro-esophageal reflux disease without esophagitis; Z86.718 Personal history of other venous thrombosis and embolism; Z62.810 Personal history of physical and sexual abuse in childhood; Z87.438 Personal history of other diseases of male genital organs; Z56.0 Unemployment, unspecified
CPT/HCPCS: 36415; 80053; 85027; 86780; 87635

== ENCOUNTER 2023-04-10 14:27 | Inpatient (IN) | payer OTHER ==
[2023-04-10 14:46] VITALS: RESP 18
[2023-04-10] MEDS ORDERED: COLLOIDAL OATMEAL 1 BAR EACH TP PRN (15:58)
[2023-04-10] MEDS ORDERED: AMMONIUM LACTATE 12% LOTION 225 GM BOTTLE TP PRN (15:58)
[2023-04-10] MEDS ORDERED: ACETAMINOPHEN 325 MG TABLET (FP) PO PRN (15:58)
[2023-04-10] MEDS ORDERED: BENZOCAINE/MENTHOL (CHLORASEPTIC ) LOZENGE MM PRN (15:58)
[2023-04-10] MEDS ORDERED: IBUPROFEN 600 MG TABLET (FP) PO PRN (15:58)
[2023-04-10] MEDS ORDERED: NALOXONE HCL 0.4 MG/ML VIAL IVPUSH PRN (15:58)
[2023-04-10] MEDS ORDERED: IBUPROFEN 400 MG TABLET (FP) PO PRN (15:58)
[2023-04-10] MEDS ORDERED: NICOTINE 14 MG/24 HOURS TOPICAL PATCH TD PRN (15:58)
[2023-04-10] MEDS ORDERED: BENZONATATE 200 MG CAPSULE PO PRN (15:58)
[2023-04-10] MEDS ORDERED: NALOXONE HCL (KLOXXADO) 8 MG SPRAY NS PRN (15:58)
[2023-04-10] MEDS ORDERED: LOPERAMIDE HCL 2 MG CAPSULE PO PRN (15:58)
[2023-04-10] MEDS ORDERED: MAG HYDROX/AL HYDROX/SIMETH 30 ML UNIT-DOSE CUP PO PRN (15:58)
[2023-04-10] MEDS ORDERED: NICOTINE POLACRILEX 4 MG GUM BUC PRN (15:58)
[2023-04-10] MEDS ORDERED: METHOCARBAMOL 500 MG TABLET PO PRN (15:58)
[2023-04-10] MEDS ORDERED: guaiFENesin 600 MG TABLET.ER (FP) PO PRN (15:58)
[2023-04-10] MEDS ORDERED: MAGNESIUM HYDROX 2400MG/30ML ORAL SUSPENSION 30 ML CUP PO PRN (15:58)
[2023-04-10] MEDS ORDERED: POLYETHYLENE GLYCOL (HEALTHYLAX) 3350 17 GM PACKET PO PRN (15:58)
[2023-04-10] MEDS: MELATONIN 5 MG TABLETS PO SCH (21:10)
[2023-04-10] MEDS: THIAMINE HCL 100 MG TABLET (FP) PO SCH (21:10)
[2023-04-10] MEDS: GABAPENTIN 300 MG CAPSULE PO SCH (21:11)
[2023-04-10] MEDS: traZODone HCL 50 MG TABLET (FP) PO SCH (21:11)
[2023-04-10] MEDS: risperiDONE 1 MG TABLET PO SCH (21:11)
[2023-04-10] MEDS: BENZTROPINE MESYLATE 0.5 MG TABLET (FP) PO SCH (22:13)
[2023-04-11] MEDS: NICOTINE 10 MG CARTRIDGE (INHALER) IH PRN ×2 (07:00→16:24)
[2023-04-11] MEDS: LISINOPRIL 20 MG TABLET PO SCH (10:06)
[2023-04-11] MEDS: PRENATAL VITAMINS W/ FOLIC ACID TABLET (FP) PO SCH (10:06)
[2023-04-11] MEDS: BENZTROPINE MESYLATE 0.5 MG TABLET (FP) PO SCH ×2 (10:06→21:22)
[2023-04-11] MEDS: amLODIPine BESYLATE 10 MG TABLET (FP) PO SCH (10:06)
[2023-04-11] MEDS: GABAPENTIN 300 MG CAPSULE PO SCH ×2 (10:06→21:22)
[2023-04-11] MEDS: hydrOXYzine PAMOATE 25 MG CAPSULE (FP) PO PRN ×2 (10:07→21:22)
[2023-04-11] MEDS: VITAMINS A AND D TOPICAL OINTMENT 60 GM TUBE TP SCH (18:39)
[2023-04-11] MEDS: traZODone HCL 50 MG TABLET (FP) PO SCH (21:22)
[2023-04-11] MEDS: THIAMINE HCL 100 MG TABLET (FP) PO SCH (21:22)
[2023-04-11] MEDS: risperiDONE 1 MG TABLET PO SCH (21:22)
[2023-04-11] MEDS: MELATONIN 5 MG TABLETS PO SCH (21:22)
[2023-04-12] MEDS: VITAMINS A AND D TOPICAL OINTMENT 60 GM TUBE TP SCH ×4 (00:15→19:05)
[2023-04-12] MEDS: GABAPENTIN 300 MG CAPSULE PO SCH ×2 (09:52→21:34)
[2023-04-12] MEDS: amLODIPine BESYLATE 10 MG TABLET (FP) PO SCH (09:52)
[2023-04-12] MEDS: BENZTROPINE MESYLATE 0.5 MG TABLET (FP) PO SCH ×2 (09:52→21:34)
[2023-04-12] MEDS: PRENATAL VITAMINS W/ FOLIC ACID TABLET (FP) PO SCH (09:53)
[2023-04-12] MEDS: LISINOPRIL 20 MG TABLET PO SCH (09:53)
[2023-04-12] MEDS: hydrOXYzine PAMOATE 25 MG CAPSULE (FP) PO PRN ×2 (09:53→21:33)
[2023-04-12] MEDS: NICOTINE 21 MG/24 HOURS TOPICAL PATCH TD PRN (09:55)
[2023-04-12] MEDS: traZODone HCL 50 MG TABLET (FP) PO SCH (21:33)
[2023-04-12] MEDS: MELATONIN 5 MG TABLETS PO SCH (21:33)
[2023-04-12] MEDS: THIAMINE HCL 100 MG TABLET (FP) PO SCH (21:33)
[2023-04-12] MEDS: risperiDONE 1 MG TABLET PO SCH (21:34)
[2023-04-13] MEDS: VITAMINS A AND D TOPICAL OINTMENT 60 GM TUBE TP SCH ×4 (00:30→18:45)
[2023-04-13] MEDS: GABAPENTIN 300 MG CAPSULE PO SCH ×2 (09:45→21:13)
[2023-04-13] MEDS: PRENATAL VITAMINS W/ FOLIC ACID TABLET (FP) PO SCH (09:45)
[2023-04-13] MEDS: LISINOPRIL 20 MG TABLET PO SCH (09:45)
[2023-04-13] MEDS: amLODIPine BESYLATE 10 MG TABLET (FP) PO SCH (09:45)
[2023-04-13] MEDS: BENZTROPINE MESYLATE 0.5 MG TABLET (FP) PO SCH ×2 (09:45→21:13)
[2023-04-13] MEDS: NICOTINE 21 MG/24 HOURS TOPICAL PATCH TD PRN (09:46)
[2023-04-13] MEDS: hydrOXYzine PAMOATE 25 MG CAPSULE (FP) PO PRN ×2 (09:46→21:14)
[2023-04-13] MEDS: risperiDONE 1 MG TABLET PO SCH (21:13)
[2023-04-13] MEDS: MELATONIN 5 MG TABLETS PO SCH (21:13)
[2023-04-13] MEDS: THIAMINE HCL 100 MG TABLET (FP) PO SCH (21:13)
[2023-04-13] MEDS: traZODone HCL 50 MG TABLET (FP) PO SCH (21:13)
[2023-04-14] MEDS: VITAMINS A AND D TOPICAL OINTMENT 60 GM TUBE TP SCH ×4 (01:34→18:50)
[2023-04-14] MEDS: PRENATAL VITAMINS W/ FOLIC ACID TABLET (FP) PO SCH (09:39)
[2023-04-14] MEDS: amLODIPine BESYLATE 10 MG TABLET (FP) PO SCH (09:39)
[2023-04-14] MEDS: hydrOXYzine PAMOATE 25 MG CAPSULE (FP) PO PRN ×2 (09:40→19:46)
[2023-04-14] MEDS: BENZTROPINE MESYLATE 0.5 MG TABLET (FP) PO SCH ×2 (09:40→21:27)
[2023-04-14] MEDS: LISINOPRIL 20 MG TABLET PO SCH (09:40)
[2023-04-14] MEDS: GABAPENTIN 300 MG CAPSULE PO SCH ×2 (09:40→21:26)
[2023-04-14] MEDS: NICOTINE 21 MG/24 HOURS TOPICAL PATCH TD PRN (09:40)
[2023-04-14] MEDS: THIAMINE HCL 100 MG TABLET (FP) PO SCH (21:26)
[2023-04-14] MEDS: risperiDONE 1 MG TABLET PO SCH (21:26)
[2023-04-14] MEDS: MELATONIN 5 MG TABLETS PO SCH (21:26)
[2023-04-14] MEDS: traZODone HCL 50 MG TABLET (FP) PO SCH (21:26)
[2023-04-15] MEDS: VITAMINS A AND D TOPICAL OINTMENT 60 GM TUBE TP SCH ×4 (01:15→18:41)
[2023-04-15] MEDS: GABAPENTIN 300 MG CAPSULE PO SCH (09:59)
[2023-04-15] MEDS: PRENATAL VITAMINS W/ FOLIC ACID TABLET (FP) PO SCH (09:59)
[2023-04-15] MEDS: LISINOPRIL 20 MG TABLET PO SCH (09:59)
[2023-04-15] MEDS: NICOTINE 21 MG/24 HOURS TOPICAL PATCH TD PRN (09:59)
[2023-04-15] MEDS: amLODIPine BESYLATE 10 MG TABLET (FP) PO SCH (09:59)
[2023-04-15] MEDS: BENZTROPINE MESYLATE 0.5 MG TABLET (FP) PO SCH (09:59)
[2023-04-15] MEDS: hydrOXYzine PAMOATE 25 MG CAPSULE (FP) PO PRN (12:32)
[2023-04-15 18:31] VITALS: BP 143/81; PULSE 91; TEMP 98.2
== END 2023-04-15 18:05 | disposition left against medical advice (07) | DRG 770 ==
LOC: YASAS 14:27 → Y3W 14:28
PROVIDERS: ADMIT Allergy & Immunology; ATTEND Psychiatry & Neurology Pain Medicine
PROC: HZ42ZZZ Group Counseling for Substance Abuse Treatment, Cognitive-Behavioral (ICD-10-PCS; principal; 2023-04-10)
DX: F10.20 Alcohol dependence, uncomplicated (principal); F14.20 Cocaine dependence, uncomplicated; F17.213 Nicotine dependence, cigarettes, with withdrawal; I10 Essential (primary) hypertension; Z86.718 Personal history of other venous thrombosis and embolism
CPT/HCPCS: 36415; 86803

== ENCOUNTER 2023-09-19 13:25 | Inpatient (IN) | payer OTHER ==
[2023-09-19 13:50] VITALS: BMI 28.0
[2023-09-19] MEDS ORDERED: POLYETHYLENE GLYCOL (HEALTHYLAX) 3350 17 GM PACKET PO PRN (15:07)
[2023-09-19] MEDS ORDERED: ONDANSETRON *ODT* 4 MG TABLET SL PRN (15:07)
[2023-09-19] MEDS ORDERED: BENZONATATE 200 MG CAPSULE PO PRN (15:07)
[2023-09-19] MEDS ORDERED: IBUPROFEN 400 MG TABLET (FP) PO PRN (15:07)
[2023-09-19] MEDS ORDERED: NALOXONE HCL 0.4 MG/ML VIAL IM PRN (15:07)
[2023-09-19] MEDS ORDERED: BENZOCAINE/MENTHOL (CHLORASEPTIC ) LOZENGE MM PRN (15:07)
[2023-09-19] MEDS ORDERED: guaiFENesin 600 MG TABLET.ER (FP) PO PRN (15:07)
[2023-09-19] MEDS ORDERED: NICOTINE POLACRILEX 2 MG LOZENGE BC PRN (15:07)
[2023-09-19] MEDS ORDERED: BISMUTH SUBSALICYLATE 262 MG/15 ML BTL PO PRN (15:07)
[2023-09-19] MEDS ORDERED: ACETAMINOPHEN 325 MG TABLET (FP) PO PRN (15:07)
[2023-09-19] MEDS ORDERED: MAGNESIUM HYDROX 2400MG/30ML ORAL SUSPENSION 30 ML CUP PO PRN (15:07)
[2023-09-19] MEDS ORDERED: DICYCLOMINE HCL 10 MG CAPSULE PO PRN (15:07)
[2023-09-19] MEDS ORDERED: MAG HYDROX/AL HYDROX/SIMETH 30 ML UNIT-DOSE CUP PO PRN (15:07)
[2023-09-19] MEDS ORDERED: NALOXONE HCL (KLOXXADO) 8 MG SPRAY NS PRN (15:07)
[2023-09-19] MEDS ORDERED: LOPERAMIDE HCL 2 MG CAPSULE PO PRN (15:07)
[2023-09-19] MEDS ORDERED: IBUPROFEN 600 MG TABLET (FP) PO PRN (15:07)
[2023-09-19] MEDS: hydrOXYzine PAMOATE 25 MG CAPSULE (FP) PO PRN ×2 (16:30→22:59)
[2023-09-19] MEDS ORDERED: MELATONIN 5 MG TABLETS PO SCH (22:00)
[2023-09-19] MEDS: THIAMINE HCL 100 MG TABLET (FP) PO SCH (22:58)
[2023-09-19] MEDS: METHOCARBAMOL 500 MG TABLET PO PRN (22:58)
[2023-09-20] MEDS: GABAPENTIN 300 MG CAPSULE PO SCH ×2 (09:36→22:30)
[2023-09-20] MEDS: BENZTROPINE MESYLATE 1 MG TABLET PO SCH ×2 (09:36→22:30)
[2023-09-20] MEDS: NICOTINE 21 MG/24 HOURS TOPICAL PATCH TD SCH (09:36)
[2023-09-20] MEDS: PRENATAL VITAMINS W/ FOLIC ACID TABLET (FP) PO SCH (09:36)
[2023-09-20] MEDS ORDERED: HYDROCHLOROTHIAZIDE 25 MG TABLET (FP) PO SCH ×2 (10:00→13:17)
[2023-09-20 10:17] LABS: CHLORIDE 99 mmol/L (98-107); POTASSIUM 4.2 mmol/L (3.5-5.1); SODIUM 134 mmol/L (136-145)
[2023-09-20 10:22] LABS: CALCIUM 8.7 mg/dL (8.5-10.1)
[2023-09-20 10:23] LABS: ALBUMIN 3.9 g/dl (3.4-5.0); ANION GAP 7 mmol/L (4-13); BLOOD UREA NITROGEN 8.8 mg/dL (7-18); CO2 28 mmol/L (21-32); GLUCOSE,RANDOM 137 mg/dL (74-106)
[2023-09-20 10:25] LABS: SGPT/ALT 33 U/L (13-61)
[2023-09-20 10:26] LABS: SGOT/AST 26 U/L (15-37); TOT PROT 7.6 g/dl (6.4-8.2)
[2023-09-20 10:27] LABS: BILIRUBIN,TOTAL 0.9 mg/dL (0.2-1)
[2023-09-20 10:28] LABS: ALK PHOS 65 U/L (45-117)
[2023-09-20 11:05] LABS: HEMATOCRIT 47.2 % (35.4-49); HEMOGLOBIN 15.7 GM/dL (11.7-16.9); MCH 29.9 pg (25.7-33.7); MCHC 33.3 g/dl (32.0-35.9); MEAN CELL VOLUME 89.8 fl (80-96); MEAN PLT VOLUME 8.2 fl (7.5-11.1); PLATELET COUNT 269 10^3/uL (134-434); RBC 5.25 M/mm3 (4.00-5.60); RDW 15.9 % (11.9-15.9); WHITE BLOOD COUNT 7.6 K/mm3 (4.0-10.0)
[2023-09-20] MEDS: amLODIPine BESYLATE 5 MG TABLET (FP) PO SCH (13:56)
[2023-09-20] MEDS: HYDROCHLOROTHIAZIDE 25 MG TABLET (FP) PO SCH (13:57)
[2023-09-20] MEDS ORDERED: traZODone HCL 50 MG TABLET (FP) PO SCH (22:00)
[2023-09-20] MEDS ORDERED: risperiDONE 1 MG TABLET PO SCH (22:00)
[2023-09-20] MEDS: THIAMINE HCL 100 MG TABLET (FP) PO SCH (22:30)
[2023-09-21] MEDS: GABAPENTIN 300 MG CAPSULE PO SCH (10:09)
[2023-09-21] MEDS: hydrOXYzine PAMOATE 25 MG CAPSULE (FP) PO PRN (10:09)
[2023-09-21] MEDS: PRENATAL VITAMINS W/ FOLIC ACID TABLET (FP) PO SCH (10:09)
[2023-09-21] MEDS: BENZTROPINE MESYLATE 1 MG TABLET PO SCH (10:09)
[2023-09-21] MEDS: HYDROCHLOROTHIAZIDE 25 MG TABLET (FP) PO SCH (10:10)
[2023-09-21] MEDS: amLODIPine BESYLATE 5 MG TABLET (FP) PO SCH (10:10)
[2023-09-21] MEDS: METHOCARBAMOL 500 MG TABLET PO PRN (10:10)
[2023-09-21] MEDS: NICOTINE 21 MG/24 HOURS TOPICAL PATCH TD SCH (10:10)
[2023-09-21 10:48] VITALS: RESP 18
[2023-09-21 13:26] VITALS: BP 130/89; PULSE 94; TEMP 97.7
== END 2023-09-21 13:31 | disposition home or self-care (01) | DRG 775 ==
LOC: YASAS 13:25 → Y6N 15:12
PROVIDERS: ADMIT Allergy & Immunology; ATTEND Surgery
PROC: HZ2ZZZZ Detoxification Services for Substance Abuse Treatment (ICD-10-PCS; principal; 2023-09-19)
DX: F10.230 Alcohol dependence with withdrawal, uncomplicated (principal); F12.20 Cannabis dependence, uncomplicated; F17.210 Nicotine dependence, cigarettes, uncomplicated; F31.9 Bipolar disorder, unspecified; F19.282 Other psychoactive substance dependence with psychoactive substance-induced sleep disorder; E78.5 Hyperlipidemia, unspecified; I10 Essential (primary) hypertension; K21.9 Gastro-esophageal reflux disease without esophagitis; Z62.810 Personal history of physical and sexual abuse in childhood; Z86.2 Personal history of diseases of the blood and blood-forming organs and certain disorders involving the immune mechanism; Z86.19 Personal history of other infectious and parasitic diseases
CPT/HCPCS: 36415; 80053; 80307; 85027; 86780; 87635; 87811

== ENCOUNTER 2023-12-12 16:32 | Inpatient (IN) | payer OTHER ==
[2023-12-12 17:15] VITALS: BMI 27.7
[2023-12-12] MEDS ORDERED: ACETAMINOPHEN 325 MG TABLET (FP) PO PRN (17:50)
[2023-12-12] MEDS ORDERED: BENZOCAINE/MENTHOL (CHLORASEPTIC ) LOZENGE MM PRN (17:50)
[2023-12-12] MEDS ORDERED: POLYETHYLENE GLYCOL (HEALTHYLAX) 3350 17 GM PACKET PO PRN (17:50)
[2023-12-12] MEDS ORDERED: guaiFENesin 600 MG TABLET.ER (FP) PO PRN (17:50)
[2023-12-12] MEDS ORDERED: NALOXONE HCL 0.4 MG/ML VIAL IM PRN (17:50)
[2023-12-12] MEDS ORDERED: MAG HYDROX/AL HYDROX/SIMETH 30 ML UNIT-DOSE CUP PO PRN (17:50)
[2023-12-12] MEDS ORDERED: LOPERAMIDE HCL 2 MG CAPSULE PO PRN (17:50)
[2023-12-12] MEDS ORDERED: NALOXONE HCL (KLOXXADO) 8 MG SPRAY NS PRN (17:50)
[2023-12-12] MEDS ORDERED: BISMUTH SUBSALICYLATE 524 MG/30 ML PO PRN (17:50)
[2023-12-12] MEDS ORDERED: DICYCLOMINE HCL 10 MG CAPSULE PO PRN (17:50)
[2023-12-12] MEDS ORDERED: MAGNESIUM HYDROX 2400MG/30ML ORAL SUSPENSION 30 ML CUP PO PRN (17:50)
[2023-12-12] MEDS ORDERED: ONDANSETRON *ODT* 4 MG TABLET SL PRN (17:50)
[2023-12-12] MEDS ORDERED: BENZONATATE 200 MG CAPSULE PO PRN (17:50)
[2023-12-12] MEDS ORDERED: IBUPROFEN 400 MG TABLET (FP) PO PRN (17:50)
[2023-12-12] MEDS: IBUPROFEN 600 MG TABLET (FP) PO PRN (19:54)
[2023-12-12] MEDS: THIAMINE HCL 100 MG TABLET (FP) PO SCH (22:42)
[2023-12-12] MEDS: MELATONIN 5 MG TABLETS PO SCH (22:42)
[2023-12-12] MEDS: FERROUS SO4 325 MG TABLET (FP) PO SCH (22:43)
[2023-12-12] MEDS: GABAPENTIN 300 MG CAPSULE PO SCH (22:43)
[2023-12-13] MEDS: ASCORBIC ACID 500 MG TABLET (FP) PO SCH (10:07)
[2023-12-13] MEDS: HYDROCHLOROTHIAZIDE 12.5 MG CAPSULE (FP) PO SCH (10:07)
[2023-12-13] MEDS: ASPIRIN COATED 81 MG TABLET.EC PO SCH (10:07)
[2023-12-13] MEDS: RAMIPRIL 2.5 MG CAPSULE PO SCH (10:07)
[2023-12-13] MEDS: amLODIPine BESYLATE 5 MG TABLET (FP) PO SCH (10:07)
[2023-12-13] MEDS: NICOTINE 14 MG/24 HOURS TOPICAL PATCH TD SCH (10:08)
[2023-12-13] MEDS: PRENATAL VITAMINS W/ FOLIC ACID TABLET (FP) PO SCH (10:08)
[2023-12-13] MEDS: METHOCARBAMOL 500 MG TABLET PO PRN (10:12)
[2023-12-13] MEDS: FOLIC ACID 1 MG TABLET (FP) PO SCH (10:14)
[2023-12-13] MEDS: diazePAM 5 MG TABLET PO SCH (10:15)
[2023-12-13 12:18] LABS: HEMATOCRIT 41.8 % (35.4-49); HEMOGLOBIN 13.8 GM/dL (11.7-16.9); MCH 30.8 pg (25.7-33.7); MEAN CELL VOLUME 93.1 fl (80-96); MEAN PLT VOLUME 9.1 fl (7.5-11.1); PLATELET COUNT 209 10^3/uL (134-434); RBC 4.49 M/mm3 (4.00-5.60); RDW 15.1 % (11.9-15.9); WHITE BLOOD COUNT 6.8 K/mm3 (4.0-10.0)
[2023-12-13 12:45] LABS: POTASSIUM 3.8 mmol/L (3.5-5.1)
[2023-12-13 12:48] LABS: CALCIUM 9.1 mg/dL (8.5-10.1)
[2023-12-13 12:49] LABS: ALBUMIN 3.5 g/dl (3.4-5.0); BLOOD UREA NITROGEN 9.2 mg/dL (7-18)
[2023-12-13 12:54] LABS: BILIRUBIN,TOTAL 0.4 mg/dL (0.2-1); TOT PROT 6.4 g/dl (6.4-8.2)
[2023-12-13 13:06] LABS: HIV INTERPRETATION NEGATIVE (NEGATIVE)
[2023-12-13] MEDS: risperiDONE 1 MG TABLET PO SCH (21:58)
[2023-12-13] MEDS: traZODone HCL 50 MG TABLET (FP) PO SCH (21:59)
[2023-12-15] MEDS: diazePAM 5 MG TABLET PO SCH (05:32)
[2023-12-15] MEDS: diazePAM 5 MG TABLET PO PRN (09:52)
[2023-12-16] MEDS: diazePAM 5 MG TABLET PO SCH (05:28)
[2023-12-16 06:45] VITALS: TEMP 97.7
[2023-12-16 09:26] VITALS: BP 131/65; PULSE 77; RESP 18
[2023-12-17] MEDS ORDERED: diazePAM 5 MG TABLET PO ONE (06:00)
== END 2023-12-16 10:30 | disposition home or self-care (01) | DRG 774 ==
LOC: YASAS 16:32 → Y6N 18:47
PROVIDERS: ADMIT Allergy & Immunology; ATTEND Surgery
PROC: HZ2ZZZZ Detoxification Services for Substance Abuse Treatment (ICD-10-PCS; principal; 2023-12-12)
DX: F10.230 Alcohol dependence with withdrawal, uncomplicated (principal); F14.20 Cocaine dependence, uncomplicated; F12.20 Cannabis dependence, uncomplicated; F17.210 Nicotine dependence, cigarettes, uncomplicated; D50.9 Iron deficiency anemia, unspecified; I10 Essential (primary) hypertension; F19.282 Other psychoactive substance dependence with psychoactive substance-induced sleep disorder; F31.9 Bipolar disorder, unspecified; F19.24 Other psychoactive substance dependence with psychoactive substance-induced mood disorder; F41.9 Anxiety disorder, unspecified; Z62.810 Personal history of physical and sexual abuse in childhood; Z86.718 Personal history of other venous thrombosis and embolism; Z79.82 Long term (current) use of aspirin
CPT/HCPCS: 36415; 80053; 80305; 85027; 86780; 87389; 93005; 93010

== ENCOUNTER 2024-01-13 12:17 | Inpatient (IN) | payer OTHER ==
[2024-01-13 12:38] VITALS: BMI 26.6
[2024-01-13] MEDS ORDERED: BENZONATATE 200 MG CAPSULE PO PRN (13:16)
[2024-01-13] MEDS ORDERED: NICOTINE POLACRILEX 2 MG LOZENGE BC PRN (13:16)
[2024-01-13] MEDS ORDERED: IBUPROFEN 400 MG TABLET (FP) PO PRN (13:16)
[2024-01-13] MEDS ORDERED: MAG HYDROX/AL HYDROX/SIMETH 30 ML UNIT-DOSE CUP PO PRN (13:16)
[2024-01-13] MEDS ORDERED: BENZOCAINE/MENTHOL (CHLORASEPTIC ) LOZENGE MM PRN (13:16)
[2024-01-13] MEDS ORDERED: METHOCARBAMOL 500 MG TABLET PO PRN (13:16)
[2024-01-13] MEDS ORDERED: IBUPROFEN 600 MG TABLET (FP) PO PRN (13:16)
[2024-01-13] MEDS ORDERED: ACETAMINOPHEN 325 MG TABLET (FP) PO PRN (13:16)
[2024-01-13] MEDS ORDERED: LOPERAMIDE HCL 2 MG CAPSULE PO PRN (13:16)
[2024-01-13] MEDS ORDERED: DICYCLOMINE HCL 10 MG CAPSULE PO PRN (13:16)
[2024-01-13] MEDS ORDERED: MAGNESIUM HYDROX 2400MG/30ML ORAL SUSPENSION 30 ML CUP PO PRN (13:16)
[2024-01-13] MEDS ORDERED: guaiFENesin 600 MG TABLET.ER (FP) PO PRN (13:16)
[2024-01-13] MEDS ORDERED: ONDANSETRON *ODT* 4 MG TABLET SL PRN (13:16)
[2024-01-13] MEDS ORDERED: BISMUTH SUBSALICYLATE 262 MG/15 ML BTL PO PRN (13:16)
[2024-01-13] MEDS ORDERED: POLYETHYLENE GLYCOL (HEALTHYLAX) 3350 17 GM PACKET PO PRN (13:16)
[2024-01-13] MEDS: diazePAM 5 MG TABLET PO PRN (18:16)
[2024-01-13] MEDS: MELATONIN 5 MG TABLETS PO SCH (22:26)
[2024-01-13] MEDS: THIAMINE 100 MG TABLET PO SCH (22:30)
[2024-01-13] MEDS: diazePAM 5 MG TABLET PO SCH (22:30)
[2024-01-14] MEDS: ASPIRIN 81 MG CHEWABLE TABLETS PO SCH (09:42)
[2024-01-14] MEDS: PRENATAL VITAMINS W/ FOLIC ACID TABLET (FP) PO SCH (09:42)
[2024-01-14] MEDS: RAMIPRIL 2.5 MG CAPSULE PO SCH (09:42)
[2024-01-14] MEDS: GABAPENTIN 300 MG CAPSULE PO SCH (09:42)
[2024-01-14] MEDS: FERROUS SO4 325 MG TABLET (FP) PO SCH (09:42)
[2024-01-14] MEDS: HYDROCHLOROTHIAZIDE 12.5 MG CAPSULE (FP) PO SCH (09:43)
[2024-01-14] MEDS: amLODIPine BESYLATE 5 MG TABLET (FP) PO SCH (09:43)
[2024-01-14] MEDS: NICOTINE 14 MG/24 HOURS TOPICAL PATCH TD SCH (09:45)
[2024-01-14 19:21] VITALS: BP 144/82; PULSE 88; RESP 16; TEMP 97.9
[2024-01-14] MEDS ORDERED: risperiDONE 1 MG TABLET PO SCH (22:00)
[2024-01-14] MEDS ORDERED: traZODone HCL 50 MG TABLET (FP) PO SCH (22:00)
[2024-01-15] MEDS ORDERED: diazePAM 5 MG TABLET PO SCH (06:00)
[2024-01-16] MEDS ORDERED: diazePAM 5 MG TABLET PO ONE (06:00)
== END 2024-01-14 19:25 | disposition left against medical advice (07) | DRG 770 ==
LOC: YASAS 12:17 → Y6N 13:30
PROVIDERS: ADMIT Allergy & Immunology; ATTEND Surgery
PROC: HZ2ZZZZ Detoxification Services for Substance Abuse Treatment (ICD-10-PCS; principal; 2024-01-13)
DX: F10.230 Alcohol dependence with withdrawal, uncomplicated (principal); F14.20 Cocaine dependence, uncomplicated; F12.20 Cannabis dependence, uncomplicated; F17.210 Nicotine dependence, cigarettes, uncomplicated; F19.282 Other psychoactive substance dependence with psychoactive substance-induced sleep disorder; F31.9 Bipolar disorder, unspecified; E78.5 Hyperlipidemia, unspecified; I10 Essential (primary) hypertension; Z86.2 Personal history of diseases of the blood and blood-forming organs and certain disorders involving the immune mechanism; Z86.718 Personal history of other venous thrombosis and embolism; Z62.810 Personal history of physical and sexual abuse in childhood
CPT/HCPCS: 80305; 80307; 93005; 93010

== ENCOUNTER 2024-04-19 13:03 | Inpatient (IN) | payer OTHER ==
[2024-04-19 14:03] VITALS: BMI 28.0
[2024-04-19] MEDS ORDERED: ONDANSETRON *ODT* 4 MG TABLET SL PRN (16:56)
[2024-04-19] MEDS ORDERED: IBUPROFEN 400 MG TABLET (FP) PO PRN (16:56)
[2024-04-19] MEDS ORDERED: guaiFENesin 600 MG TABLET.ER (FP) PO PRN (16:56)
[2024-04-19] MEDS ORDERED: chlordiazePOXIDE HCL 25 MG CAPSULE PO PRN (16:56)
[2024-04-19] MEDS ORDERED: DICYCLOMINE HCL 10 MG CAPSULE PO PRN (16:56)
[2024-04-19] MEDS ORDERED: BISMUTH SUBSALICYLATE 524 MG/30 ML PO PRN (16:56)
[2024-04-19] MEDS ORDERED: LOPERAMIDE HCL 2 MG CAPSULE PO PRN (16:56)
[2024-04-19] MEDS ORDERED: BENZONATATE 200 MG CAPSULE PO PRN (16:56)
[2024-04-19] MEDS ORDERED: MAG HYDROX/AL HYDROX/SIMETH 30 ML UNIT-DOSE CUP PO PRN (16:56)
[2024-04-19] MEDS ORDERED: BENZOCAINE/MENTHOL (CHLORASEPTIC ) LOZENGE MM PRN (16:56)
[2024-04-19] MEDS ORDERED: MAGNESIUM HYDROX 2400MG/30ML ORAL SUSPENSION 30 ML CUP PO PRN (16:56)
[2024-04-19] MEDS ORDERED: NALOXONE (NARCAN) HCL 4 MG/0.1 ML SPRAY NS PRN (16:56)
[2024-04-19] MEDS ORDERED: NALOXONE HCL 0.4 MG/ML VIAL IM PRN (16:56)
[2024-04-19] MEDS ORDERED: POLYETHYLENE GLYCOL (HEALTHYLAX) 3350 17 GM PACKET PO PRN (16:56)
[2024-04-19] MEDS ORDERED: chlordiazePOXIDE HCL 25 MG CAPSULE ONE (17:25)
[2024-04-19] MEDS: chlordiazePOXIDE HCL 25 MG CAPSULE PO SCH (17:32)
[2024-04-19] MEDS: NICOTINE 21 MG/24 HOURS TOPICAL PATCH TD SCH (18:35)
[2024-04-19 20:56] LABS: PH,URINE 5.5 (5.0-8.0); URINE APPEARANCE CLEAR; URINE BILIRUBIN NEGATIVE (NEGATIVE); URINE COLOR YELLOW; URINE GLUCOSE (UA) NEGATIVE (NEGATIVE); URINE KETONE NEGATIVE (NEGATIVE); URINE LEUK ESTERASE NEGATIVE (NEGATIVE); URINE NITRITE NEGATIVE (NEGATIVE); URINE PROTEIN TRACE (NEGATIVE); URINE UROBILINOGEN 0.2 mg/dL (0.2-1.0)
[2024-04-19] MEDS: THIAMINE 100 MG TABLET PO SCH (22:03)
[2024-04-19] MEDS: MELATONIN 5 MG TABLETS PO SCH (22:03)
[2024-04-19] MEDS: METHOCARBAMOL 500 MG TABLET PO PRN (22:03)
[2024-04-20] MEDS: ASPIRIN 81 MG CHEWABLE TABLETS PO SCH (10:04)
[2024-04-20] MEDS: amLODIPine BESYLATE 5 MG TABLET (FP) PO SCH (10:04)
[2024-04-20] MEDS: PRENATAL VITAMINS W/ FOLIC ACID TABLET (FP) PO SCH (10:04)
[2024-04-20] MEDS: HYDROCHLOROTHIAZIDE 12.5 MG CAPSULE (FP) PO SCH (10:04)
[2024-04-20] MEDS: GABAPENTIN 300 MG CAPSULE PO SCH (10:35)
[2024-04-20] MEDS: RAMIPRIL 2.5 MG CAPSULE PO SCH (10:35)
[2024-04-20 11:17] LABS: HEMATOCRIT 44.3 % (35.4-49); HEMOGLOBIN 15.3 GM/dL (11.7-16.9); MCH 31.9 pg (25.7-33.7); MCHC 34.5 g/dl (32.0-35.9); MEAN CELL VOLUME 92.5 fl (80-96); MEAN PLT VOLUME 8.5 fl (7.5-11.1); PLATELET COUNT 222 10^3/uL (134-434); RBC 4.79 M/mm3 (4.00-5.60); RDW 14.6 % (11.9-15.9); WHITE BLOOD COUNT 8.3 K/mm3 (4.0-10.0)
[2024-04-20 11:18] LABS: CHLORIDE 104 mmol/L (98-107); POTASSIUM 3.9 mmol/L (3.5-5.1); SODIUM 139 mmol/L (136-145)
[2024-04-20 11:21] LABS: ALBUMIN 3.8 g/dl (3.4-5.0); ANION GAP 7 mmol/L (4-13); BLOOD UREA NITROGEN 4.7 mg/dL (7-18); CO2 28 mmol/L (21-32); GLUCOSE,RANDOM 107 mg/dL (74-106)
[2024-04-20 11:24] LABS: CREATININE 0.8 mg/dL (0.55-1.3); SGOT/AST 35 U/L (15-37); SGPT/ALT 46 U/L (13-61)
[2024-04-20 11:26] LABS: BILIRUBIN,TOTAL 0.6 mg/dL (0.2-1); TOT PROT 7.1 g/dl (6.4-8.2)
[2024-04-20 11:27] LABS: ALK PHOS 64 U/L (45-117)
[2024-04-20] MEDS: amLODIPine BESYLATE 5 MG TABLET (FP) PO ONE (15:32)
[2024-04-20] MEDS: risperiDONE 1 MG TABLET PO SCH (22:10)
[2024-04-20] MEDS: traZODone HCL 100 MG TABLET (FP) PO SCH (22:10)
[2024-04-20] MEDS: BENZTROPINE MESYLATE 1 MG TABLET PO SCH (22:10)
[2024-04-21] MEDS: chlordiazePOXIDE HCL 25 MG CAPSULE PO SCH (05:08)
[2024-04-21] MEDS: amLODIPine BESYLATE 10 MG TABLET (FP) PO SCH (10:18)
[2024-04-22] MEDS ORDERED: chlordiazePOXIDE HCL 10 MG CAPSULE PO PRN
[2024-04-22] MEDS: IBUPROFEN 600 MG TABLET (FP) PO PRN (05:29)
[2024-04-22] MEDS: chlordiazePOXIDE HCL 10 MG CAPSULE PO SCH (05:29)
[2024-04-22] MEDS: ACETAMINOPHEN 325 MG TABLET (FP) PO PRN (15:15)
[2024-04-22] MEDS: hydrOXYzine PAMOATE 25 MG CAPSULE (FP) PO PRN (16:55)
[2024-04-23] MEDS: chlordiazePOXIDE HCL 10 MG CAPSULE PO SCH (05:37)
[2024-04-24] MEDS: chlordiazePOXIDE HCL 10 MG CAPSULE PO ONE (05:50)
[2024-04-24 09:06] VITALS: PULSE 79; RESP 16; TEMP 97.5
[2024-04-24 13:09] VITALS: BP 137/83
== END 2024-04-24 13:07 | disposition other institution (70) | DRG 774 ==
LOC: YASAS 13:03 → SUATTDRO 13:03 → Y3N 17:14
PROVIDERS: ADMIT Allergy & Immunology; ATTEND Surgery
PROC: HZ2ZZZZ Detoxification Services for Substance Abuse Treatment (ICD-10-PCS; principal; 2024-04-19)
DX: F10.230 Alcohol dependence with withdrawal, uncomplicated (principal); F14.20 Cocaine dependence, uncomplicated; F12.20 Cannabis dependence, uncomplicated; F17.210 Nicotine dependence, cigarettes, uncomplicated; F20.9 Schizophrenia, unspecified; I10 Essential (primary) hypertension; E78.5 Hyperlipidemia, unspecified; K21.9 Gastro-esophageal reflux disease without esophagitis; Z86.718 Personal history of other venous thrombosis and embolism; Z87.438 Personal history of other diseases of male genital organs; Z86.19 Personal history of other infectious and parasitic diseases; Z56.0 Unemployment, unspecified
CPT/HCPCS: 36415; 80053; 80305; 80307; 81003; 82140; 85027; 86780; 87811; 93005; 93010

== ENCOUNTER 2024-04-24 13:09 | Inpatient (IN) | payer OTHER ==
[2024-04-24] MEDS ORDERED: IBUPROFEN 400 MG TABLET (FP) PO PRN (14:05)
[2024-04-24] MEDS ORDERED: LOPERAMIDE HCL 2 MG CAPSULE PO PRN (14:05)
[2024-04-24] MEDS ORDERED: NALOXONE (NARCAN) HCL 4 MG/0.1 ML SPRAY NS PRN (14:05)
[2024-04-24] MEDS ORDERED: BENZONATATE 200 MG CAPSULE PO PRN (14:05)
[2024-04-24] MEDS ORDERED: NICOTINE POLACRILEX 2 MG GUM BUC PRN (14:05)
[2024-04-24] MEDS ORDERED: guaiFENesin 600 MG TABLET.ER (FP) PO PRN (14:05)
[2024-04-24] MEDS ORDERED: NALOXONE HCL 0.4 MG/ML VIAL IVPUSH PRN (14:05)
[2024-04-24] MEDS: MELATONIN 5 MG TABLETS PO SCH (22:50)
[2024-04-24] MEDS: BENZTROPINE MESYLATE 1 MG TABLET PO SCH (22:51)
[2024-04-24] MEDS: traZODone HCL 100 MG TABLET (FP) PO SCH (22:51)
[2024-04-24] MEDS: THIAMINE 100 MG TABLET PO SCH (22:51)
[2024-04-24] MEDS: GABAPENTIN 300 MG CAPSULE PO SCH (22:51)
[2024-04-25] MEDS: MAGNESIUM HYDROX 2400MG/30ML ORAL SUSPENSION 30 ML CUP PO PRN (05:24)
[2024-04-25] MEDS: ASPIRIN 81 MG CHEWABLE TABLETS PO SCH (10:08)
[2024-04-25] MEDS: RAMIPRIL 2.5 MG CAPSULE PO SCH (10:08)
[2024-04-25] MEDS: HYDROCHLOROTHIAZIDE 12.5 MG CAPSULE (FP) PO SCH (10:08)
[2024-04-25] MEDS: amLODIPine BESYLATE 5 MG TABLET (FP) PO SCH (10:08)
[2024-04-25] MEDS: PRENATAL VITAMINS W/ FOLIC ACID TABLET (FP) PO SCH (10:08)
[2024-04-25] MEDS: POLYETHYLENE GLYCOL (HEALTHYLAX) 3350 17 GM PACKET PO PRN (14:25)
[2024-04-25] MEDS: MAG HYDROX/AL HYDROX/SIMETH 30 ML UNIT-DOSE CUP PO PRN (14:29)
[2024-04-25] MEDS: risperiDONE 1 MG TABLET PO SCH (21:47)
[2024-04-26] MEDS: hydrOXYzine PAMOATE 25 MG CAPSULE (FP) PO PRN (10:51)
[2024-04-26] MEDS: NICOTINE 21 MG/24 HOURS TOPICAL PATCH TD SCH (12:04)
[2024-04-29] MEDS: BENZOCAINE/MENTHOL (CHLORASEPTIC ) LOZENGE MM PRN (05:45)
[2024-04-29] MEDS ORDERED: guaiFENesin 600 MG TABLET.ER (FP) PO PRN (10:28)
[2024-04-29] MEDS ORDERED: BENZONATATE 200 MG CAPSULE PO PRN (10:28)
[2024-04-29] MEDS: GABAPENTIN 300 MG CAPSULE PO SCH ×2 (13:08→21:05)
[2024-04-29] MEDS: CLINDAMYCIN PHOSPHATE 1% TOPICAL GEL 30 GM TUBE TP SCH (13:59)
[2024-04-30] MEDS: TAMSULOSIN HCL 0.4 MG CAP PO SCH (12:40)
[2024-05-01] MEDS: OXYMETAZOLINE 0.05% NASAL SOLUTION 15 ML BOTTLE NS PRN (09:46)
[2024-05-05] MEDS: IBUPROFEN 600 MG TABLET (FP) PO PRN (11:26)
[2024-05-06] MEDS: ACETAMINOPHEN 325 MG TABLET (FP) PO PRN (05:20)
[2024-05-07 06:49] VITALS: TEMP 96.8
[2024-05-07 09:10] VITALS: BP 123/69; PULSE 92; RESP 18
== END 2024-05-07 09:44 | disposition home or self-care (01) | DRG 772 ==
LOC: YASAS 13:09 → Y3NR 13:12 → Y3W 04-27 11:51
PROVIDERS: ADMIT Allergy & Immunology; ATTEND Psychiatry & Neurology Pain Medicine
PROC: HZ42ZZZ Group Counseling for Substance Abuse Treatment, Cognitive-Behavioral (ICD-10-PCS; principal; 2024-04-24)
DX: F10.20 Alcohol dependence, uncomplicated (principal); F12.20 Cannabis dependence, uncomplicated; F17.210 Nicotine dependence, cigarettes, uncomplicated; F19.282 Other psychoactive substance dependence with psychoactive substance-induced sleep disorder; F25.9 Schizoaffective disorder, unspecified; F31.9 Bipolar disorder, unspecified; I10 Essential (primary) hypertension; I83.93 Asymptomatic varicose veins of bilateral lower extremities; M19.041 Primary osteoarthritis, right hand; N40.0 Benign prostatic hyperplasia without lower urinary tract symptoms; Z86.718 Personal history of other venous thrombosis and embolism
CPT/HCPCS: 0241U-QW; 82140

== ENCOUNTER 2024-05-22 13:36 | Inpatient (IN) | payer OTHER ==
[2024-05-22 14:01] VITALS: BMI 29.2
[2024-05-22] MEDS ORDERED: BENZOCAINE/MENTHOL (CHLORASEPTIC ) LOZENGE MM PRN (15:25)
[2024-05-22] MEDS ORDERED: MAGNESIUM HYDROX 2400MG/30ML ORAL SUSPENSION 30 ML CUP PO PRN (15:25)
[2024-05-22] MEDS ORDERED: guaiFENesin 600 MG TABLET.ER (FP) PO PRN (15:25)
[2024-05-22] MEDS ORDERED: ONDANSETRON *ODT* 4 MG TABLET SL PRN (15:25)
[2024-05-22] MEDS ORDERED: LOPERAMIDE HCL 2 MG CAPSULE PO PRN (15:25)
[2024-05-22] MEDS ORDERED: NICOTINE POLACRILEX 2 MG GUM BUC PRN (15:25)
[2024-05-22] MEDS ORDERED: MAG HYDROX/AL HYDROX/SIMETH 30 ML UNIT-DOSE CUP PO PRN (15:25)
[2024-05-22] MEDS ORDERED: BISMUTH SUBSALICYLATE 524 MG/30 ML PO PRN (15:25)
[2024-05-22] MEDS ORDERED: BENZONATATE 200 MG CAPSULE PO PRN (15:25)
[2024-05-22] MEDS ORDERED: IBUPROFEN 600 MG TABLET (FP) PO PRN (15:25)
[2024-05-22] MEDS ORDERED: POLYETHYLENE GLYCOL (HEALTHYLAX) 3350 17 GM PACKET PO PRN (15:25)
[2024-05-22] MEDS ORDERED: NICOTINE POLACRILEX 2 MG LOZENGE BC PRN (15:25)
[2024-05-22] MEDS ORDERED: ACETAMINOPHEN 325 MG TABLET (FP) PO PRN (15:25)
[2024-05-22] MEDS ORDERED: DICYCLOMINE HCL 10 MG CAPSULE PO PRN (15:25)
[2024-05-22] MEDS ORDERED: P-EPHED 60MG/TRIPROLIDI 2.5MG TABLET PO PRN (15:25)
[2024-05-22] MEDS ORDERED: IBUPROFEN 400 MG TABLET (FP) PO PRN (15:25)
[2024-05-22] MEDS ORDERED: diazePAM 5 MG TABLET PO PRN (15:26)
[2024-05-22] MEDS ORDERED: diazePAM 5 MG TABLET ONE (16:15)
[2024-05-22] MEDS: diazePAM 5 MG TABLET PO SCH (16:17)
[2024-05-22] MEDS: FERROUS SO4 325 MG TABLET (FP) PO SCH (17:03)
[2024-05-22] MEDS: GABAPENTIN 300 MG CAPSULE PO SCH (22:10)
[2024-05-22] MEDS: MELATONIN 5 MG TABLETS PO SCH (22:11)
[2024-05-22] MEDS: THIAMINE 100 MG TABLET PO SCH (22:11)
[2024-05-23] MEDS: diazePAM 5 MG TABLET PO SCH (05:36)
[2024-05-23] MEDS: TAMSULOSIN HCL 0.4 MG CAP PO SCH (09:14)
[2024-05-23] MEDS: RAMIPRIL 2.5 MG CAPSULE PO SCH (09:14)
[2024-05-23] MEDS: PRENATAL VITAMINS W/ FOLIC ACID TABLET (FP) PO SCH (09:14)
[2024-05-23] MEDS: ASPIRIN 81 MG CHEWABLE TABLETS PO SCH (09:14)
[2024-05-23] MEDS: HYDROCHLOROTHIAZIDE 12.5 MG CAPSULE (FP) PO SCH (09:14)
[2024-05-23] MEDS: FOLIC ACID 1 MG TABLET (FP) PO SCH (09:14)
[2024-05-23] MEDS: ASCORBIC ACID 500 MG TABLET (FP) PO SCH (09:14)
[2024-05-23] MEDS: amLODIPine BESYLATE 5 MG TABLET (FP) PO SCH (09:16)
[2024-05-23] MEDS: NICOTINE 21 MG/24 HOURS TOPICAL PATCH TD SCH (11:25)
[2024-05-23] MEDS: METHOCARBAMOL 500 MG TABLET PO PRN (17:22)
[2024-05-23] MEDS: risperiDONE 1 MG TABLET PO SCH (22:00)
[2024-05-23] MEDS: BENZTROPINE MESYLATE 1 MG TABLET PO SCH (22:00)
[2024-05-23] MEDS: busPIRone HCL 5 MG TABLET PO SCH (22:00)
[2024-05-23] MEDS: traZODone HCL 100 MG TABLET (FP) PO SCH (22:00)
[2024-05-24] MEDS: diazePAM 5 MG TABLET PO SCH (05:20)
[2024-05-24] MEDS: hydrOXYzine PAMOATE 25 MG CAPSULE (FP) PO PRN (05:21)
[2024-05-24 09:57] LABS: HEMATOCRIT 40.4 % (35.4-49); HEMOGLOBIN 13.9 GM/dL (11.7-16.9); MCH 32.1 pg (25.7-33.7); MCHC 34.4 g/dl (32.0-35.9); MEAN CELL VOLUME 93.1 fl (80-96); MEAN PLT VOLUME 8.6 fl (7.5-11.1); PLATELET COUNT 194 10^3/uL (134-434); RBC 4.34 M/mm3 (4.00-5.60); RDW 14.9 % (11.9-15.9); WHITE BLOOD COUNT 6.6 K/mm3 (4.0-10.0)
[2024-05-25] MEDS: diazePAM 5 MG TABLET PO ONE (05:43)
[2024-05-25 09:15] VITALS: BP 117/66; PULSE 77; RESP 18; TEMP 97.1
== END 2024-05-25 10:49 | disposition home or self-care (01) | DRG 775 ==
LOC: YASAS 13:36 → Y3N 15:33
PROVIDERS: ADMIT Allergy & Immunology; ATTEND Surgery
PROC: HZ2ZZZZ Detoxification Services for Substance Abuse Treatment (ICD-10-PCS; principal; 2024-05-22)
DX: F10.230 Alcohol dependence with withdrawal, uncomplicated (principal); F17.210 Nicotine dependence, cigarettes, uncomplicated; F31.9 Bipolar disorder, unspecified; F25.9 Schizoaffective disorder, unspecified; F41.9 Anxiety disorder, unspecified; D64.9 Anemia, unspecified; I10 Essential (primary) hypertension; M19.041 Primary osteoarthritis, right hand; M19.042 Primary osteoarthritis, left hand; N40.0 Benign prostatic hyperplasia without lower urinary tract symptoms; Z86.718 Personal history of other venous thrombosis and embolism; Z62.810 Personal history of physical and sexual abuse in childhood; Z63.8 Other specified problems related to primary support group
CPT/HCPCS: 36415; 80305; 80307; 85027

== ENCOUNTER 2024-07-03 18:10 | Inpatient (IN) | payer OTHER ==
[2024-07-03 19:04] VITALS: BMI 28.0
[2024-07-03] MEDS ORDERED: MAGNESIUM HYDROX 2400MG/30ML ORAL SUSPENSION 30 ML CUP PO PRN (20:04)
[2024-07-03] MEDS ORDERED: BISMUTH SUBSALICYLATE 524 MG/30 ML PO PRN (20:04)
[2024-07-03] MEDS ORDERED: BENZOCAINE/MENTHOL (CHLORASEPTIC ) LOZENGE MM PRN (20:04)
[2024-07-03] MEDS ORDERED: POLYETHYLENE GLYCOL (HEALTHYLAX) 3350 17 GM PACKET PO PRN (20:04)
[2024-07-03] MEDS ORDERED: IBUPROFEN 400 MG TABLET (FP) PO PRN (20:04)
[2024-07-03] MEDS ORDERED: LOPERAMIDE HCL 2 MG CAPSULE PO PRN (20:04)
[2024-07-03] MEDS ORDERED: ACETAMINOPHEN 325 MG TABLET (FP) PO PRN (20:04)
[2024-07-03] MEDS ORDERED: ONDANSETRON *ODT* 4 MG TABLET SL PRN (20:04)
[2024-07-03] MEDS ORDERED: BENZONATATE 200 MG CAPSULE PO PRN (20:04)
[2024-07-03] MEDS ORDERED: MAG HYDROX/AL HYDROX/SIMETH 30 ML UNIT-DOSE CUP PO PRN (20:04)
[2024-07-03] MEDS ORDERED: NICOTINE POLACRILEX 2 MG GUM BUC PRN (20:04)
[2024-07-03] MEDS ORDERED: DICYCLOMINE HCL 10 MG CAPSULE PO PRN (20:04)
[2024-07-03] MEDS ORDERED: guaiFENesin 600 MG TABLET.ER (FP) PO PRN (20:04)
[2024-07-03] MEDS ORDERED: NICOTINE POLACRILEX 2 MG LOZENGE BC PRN (20:04)
[2024-07-03] MEDS ORDERED: PATIENT'S OWN MEDICATION (NON-FORMULARY) (Ferrous Sulfate [Ferrous Sulfate] 325 MG Tablet) PO SCH (22:00)
[2024-07-03] MEDS ORDERED: MELATONIN 5 MG TABLETS ONE (22:35)
[2024-07-03] MEDS: MELATONIN 5 MG TABLETS PO SCH (22:38)
[2024-07-03] MEDS: THIAMINE 100 MG TABLET PO SCH (22:38)
[2024-07-03] MEDS: FERROUS SO4 325 MG TABLET (FP) PO SCH (23:53)
[2024-07-04] MEDS: TAMSULOSIN HCL 0.4 MG CAP PO SCH (07:37)
[2024-07-04 09:26] LABS: POTASSIUM 3.9 mmol/L (3.5-5.1)
[2024-07-04 09:37] LABS: ALBUMIN 3.9 g/dl (3.4-5.0); BLOOD UREA NITROGEN 8.3 mg/dL (7-18); CALCIUM 8.5 mg/dL (8.5-10.1)
[2024-07-04 09:39] LABS: HEMATOCRIT 41.3 % (35.4-49); HEMOGLOBIN 13.9 GM/dL (11.7-16.9); MCH 31.8 pg (25.7-33.7); MCHC 33.7 g/dl (32.0-35.9); MEAN CELL VOLUME 94.4 fl (80-96); MEAN PLT VOLUME 9.3 fl (7.5-11.1); PLATELET COUNT 227 10^3/uL (134-434); RBC 4.38 M/mm3 (4.00-5.60); RDW 15.2 % (11.9-15.9); WHITE BLOOD COUNT 7.7 K/mm3 (4.0-10.0)
[2024-07-04 09:40] LABS: CREATININE 0.8 mg/dL (0.55-1.3)
[2024-07-04 09:41] LABS: BILIRUBIN,TOTAL 0.9 mg/dL (0.2-1)
[2024-07-04 09:42] LABS: TOT PROT 6.8 g/dl (6.4-8.2)
[2024-07-04] MEDS ORDERED: PATIENT'S OWN MEDICATION (NON-FORMULARY) (Ascorbate Calcium [Vitamin C] 500 MG Tablet) PO SCH (10:00)
[2024-07-04] MEDS ORDERED: ERGOCALCIFEROL (VIT D2) 50,000 UNIT (1.25 MG) CAPSULE PO SCH (10:00)
[2024-07-04] MEDS: FOLIC ACID 1 MG TABLET (FP) PO SCH (10:24)
[2024-07-04] MEDS: amLODIPine BESYLATE 5 MG TABLET (FP) PO SCH (10:24)
[2024-07-04] MEDS: ASPIRIN 81 MG CHEWABLE TABLETS PO SCH (10:25)
[2024-07-04] MEDS: PRENATAL VITAMINS W/ FOLIC ACID TABLET (FP) PO SCH (10:25)
[2024-07-04] MEDS: HYDROCHLOROTHIAZIDE 25 MG TABLET (FP) PO SCH (10:25)
[2024-07-04] MEDS: ASCORBIC ACID 500 MG TABLET (FP) PO SCH (11:01)
[2024-07-04] MEDS: RAMIPRIL 2.5 MG CAPSULE PO SCH (11:01)
[2024-07-04] MEDS: FLU VACCINE (FLULAVAL) PF 45 MCG/0.5 ML SYRINGE 2024-2025 IM ONE (11:08)
[2024-07-04] MEDS: METHOCARBAMOL 500 MG TABLET PO PRN (14:15)
[2024-07-04] MEDS: IBUPROFEN 600 MG TABLET (FP) PO PRN (14:15)
[2024-07-04] MEDS: hydrOXYzine PAMOATE 25 MG CAPSULE (FP) PO PRN (18:52)
[2024-07-04] MEDS: risperiDONE 1 MG TABLET PO SCH (22:08)
[2024-07-04] MEDS: busPIRone HCL 5 MG TABLET PO SCH (22:08)
[2024-07-04] MEDS: traZODone HCL 100 MG TABLET (FP) PO SCH (22:09)
[2024-07-04] MEDS: BENZTROPINE MESYLATE 0.5 MG TABLET (FP) PO SCH (22:09)
[2024-07-05 07:02] VITALS: RESP 16
[2024-07-05 09:17] VITALS: BP 133/80; PULSE 87; TEMP 98
== END 2024-07-05 12:43 | disposition home or self-care (01) | DRG 774 ==
LOC: YASAS 18:10 → Y6N 21:17
PROVIDERS: ADMIT Allergy & Immunology; ATTEND Surgery
PROC: HZ2ZZZZ Detoxification Services for Substance Abuse Treatment (ICD-10-PCS; principal; 2024-07-03)
DX: F10.230 Alcohol dependence with withdrawal, uncomplicated (principal); F14.20 Cocaine dependence, uncomplicated; F12.20 Cannabis dependence, uncomplicated; F17.210 Nicotine dependence, cigarettes, uncomplicated; F25.1 Schizoaffective disorder, depressive type; F41.9 Anxiety disorder, unspecified; F31.9 Bipolar disorder, unspecified; D50.9 Iron deficiency anemia, unspecified; M19.041 Primary osteoarthritis, right hand; M19.042 Primary osteoarthritis, left hand; Z86.718 Personal history of other venous thrombosis and embolism
CPT/HCPCS: 36415; 80053; 80305; 85027; 90656; G0008

== ENCOUNTER 2024-09-17 10:58 | Inpatient (IN) | payer OTHER ==
[2024-09-17 11:18] VITALS: BMI 27.1
[2024-09-17] MEDS ORDERED: BENZONATATE 200 MG CAPSULE PO PRN (11:47)
[2024-09-17] MEDS ORDERED: MAG HYDROX/AL HYDROX/SIMETH 30 ML UNIT-DOSE CUP PO PRN (11:47)
[2024-09-17] MEDS ORDERED: DICYCLOMINE HCL 10 MG CAPSULE PO PRN (11:47)
[2024-09-17] MEDS ORDERED: BENZOCAINE/MENTHOL (CHLORASEPTIC ) LOZENGE MM PRN (11:47)
[2024-09-17] MEDS ORDERED: LOPERAMIDE HCL 2 MG CAPSULE PO PRN (11:47)
[2024-09-17] MEDS ORDERED: chlordiazePOXIDE HCL 25 MG CAPSULE PO PRN (11:47)
[2024-09-17] MEDS ORDERED: NALOXONE (NARCAN) HCL 4 MG/0.1 ML SPRAY NS PRN (11:47)
[2024-09-17] MEDS ORDERED: POLYETHYLENE GLYCOL (HEALTHYLAX) 3350 17 GM PACKET PO PRN (11:47)
[2024-09-17] MEDS ORDERED: IBUPROFEN 400 MG TABLET (FP) PO PRN (11:47)
[2024-09-17] MEDS ORDERED: guaiFENesin 600 MG TABLET.ER (FP) PO PRN (11:47)
[2024-09-17] MEDS ORDERED: ACETAMINOPHEN 325 MG TABLET (FP) PO PRN (11:47)
[2024-09-17] MEDS ORDERED: ONDANSETRON *ODT* 4 MG TABLET SL PRN (11:47)
[2024-09-17] MEDS ORDERED: NICOTINE 14 MG/24 HOURS TOPICAL PATCH TD ONE (12:59)
[2024-09-17] MEDS ORDERED: PRENATAL VITAMINS W/ FOLIC ACID TABLET (FP) PO ONE (13:00)
[2024-09-17] MEDS: NICOTINE 14 MG/24 HOURS TOPICAL PATCH TD SCH (13:24)
[2024-09-17] MEDS: PRENATAL VITAMINS W/ FOLIC ACID TABLET (FP) PO SCH (13:25)
[2024-09-17] MEDS: NALTREXONE HCL 50 MG TABLET PO SCH (15:46)
[2024-09-17] MEDS: chlordiazePOXIDE HCL 25 MG CAPSULE PO SCH (17:38)
[2024-09-17] MEDS: THIAMINE 100 MG TABLET PO SCH (22:25)
[2024-09-17] MEDS: MELATONIN 5 MG TABLETS PO SCH (22:25)
[2024-09-17] MEDS: IBUPROFEN 600 MG TABLET (FP) PO PRN (22:26)
[2024-09-17] MEDS: hydrOXYzine PAMOATE 25 MG CAPSULE (FP) PO PRN (22:27)
[2024-09-18] MEDS: TAMSULOSIN HCL 0.4 MG CAP PO SCH (09:25)
[2024-09-18] MEDS: ASPIRIN 81 MG CHEWABLE TABLETS PO SCH (09:30)
[2024-09-18] MEDS: amLODIPine BESYLATE 5 MG TABLET (FP) PO SCH (09:30)
[2024-09-18] MEDS: HYDROCHLOROTHIAZIDE 25 MG TABLET (FP) PO SCH (09:30)
[2024-09-18] MEDS: RAMIPRIL 2.5 MG CAPSULE PO SCH (10:16)
[2024-09-18 14:35] LABS: HEMATOCRIT 45.3 % (35.4-49); MCH 31.1 pg (25.7-33.7); MEAN CELL VOLUME 94.1 fl (80-96); MEAN PLT VOLUME 8.8 fl (7.5-11.1); PLATELET COUNT 215 10^3/uL (134-434); RBC 4.81 M/mm3 (4.00-5.60); WHITE BLOOD COUNT 5.8 K/mm3 (4.0-10.0)
[2024-09-18 15:15] LABS: POTASSIUM 3.4 mmol/L (3.5-5.1)
[2024-09-18 15:26] LABS: ALBUMIN 3.4 g/dl (3.4-5.0); CALCIUM 9.6 mg/dL (8.5-10.1)
[2024-09-18 15:27] LABS: BLOOD UREA NITROGEN 7.6 mg/dL (7-18)
[2024-09-18 15:30] LABS: CREATININE 0.8 mg/dL (0.55-1.3)
[2024-09-18 15:31] LABS: TOT PROT 6.4 g/dl (6.4-8.2)
[2024-09-18] MEDS: ASPIRIN COATED 81 MG TABLET.EC PO SCH (15:50)
[2024-09-18] MEDS ORDERED: risperiDONE 1 MG TABLET PO SCH (22:00)
[2024-09-18] MEDS: busPIRone HCL 5 MG TABLET PO SCH (22:21)
[2024-09-18] MEDS: BENZTROPINE MESYLATE 1 MG TABLET PO SCH (22:22)
[2024-09-18] MEDS: traZODone HCL 100 MG TABLET (FP) PO SCH (22:22)
[2024-09-18] MEDS: FERROUS SO4 325 MG TABLET (FP) PO SCH (22:22)
[2024-09-19] MEDS: chlordiazePOXIDE HCL 25 MG CAPSULE PO SCH (05:26)
[2024-09-19] MEDS: ERGOCALCIFEROL (VIT D2) 50,000 UNIT (1.25 MG) CAPSULE PO SCH (10:10)
[2024-09-19] MEDS: risperiDONE 1 MG TABLET PO SCH (10:13)
[2024-09-19] MEDS: ASPIRIN COATED 81 MG TABLET.EC PO SCH (11:00)
[2024-09-19] MEDS: BISMUTH SUBSALICYLATE 262 MG/15 ML BTL PO PRN (14:23)
[2024-09-20] MEDS ORDERED: chlordiazePOXIDE HCL 10 MG CAPSULE PO PRN
[2024-09-20] MEDS: chlordiazePOXIDE HCL 10 MG CAPSULE PO SCH (05:28)
[2024-09-21] MEDS: chlordiazePOXIDE HCL 10 MG CAPSULE PO SCH (05:17)
[2024-09-21] MEDS: MAGNESIUM HYDROX 2400MG/30ML ORAL SUSPENSION 30 ML CUP PO PRN (07:25)
[2024-09-22] MEDS: chlordiazePOXIDE HCL 10 MG CAPSULE PO ONE (05:25)
[2024-09-22] MEDS: METHOCARBAMOL 500 MG TABLET PO PRN (06:30)
[2024-09-22 09:19] VITALS: BP 129/80; PULSE 72; RESP 18; TEMP 97.6
[2024-09-22] MEDS: NALOXONE (NYS OPIOID OVERDOSE PROGRAM) 4 MG/0.1 ML SPRAY NS SCH (11:55)
== END 2024-09-22 11:26 | disposition other institution (70) | DRG 774 ==
LOC: YASAS 10:58 → Y3N 13:06
PROVIDERS: ADMIT Allergy & Immunology; ATTEND Allergy & Immunology
PROC: HZ2ZZZZ Detoxification Services for Substance Abuse Treatment (ICD-10-PCS; principal; 2024-09-17)
DX: F10.230 Alcohol dependence with withdrawal, uncomplicated (principal); F14.20 Cocaine dependence, uncomplicated; F12.20 Cannabis dependence, uncomplicated; F17.210 Nicotine dependence, cigarettes, uncomplicated; F31.9 Bipolar disorder, unspecified; F25.1 Schizoaffective disorder, depressive type; F41.9 Anxiety disorder, unspecified; D50.9 Iron deficiency anemia, unspecified; I10 Essential (primary) hypertension; J44.9 Chronic obstructive pulmonary disease, unspecified; M19.041 Primary osteoarthritis, right hand; M19.042 Primary osteoarthritis, left hand; N40.0 Benign prostatic hyperplasia without lower urinary tract symptoms; R94.31 Abnormal electrocardiogram [ECG] [EKG]; Z86.718 Personal history of other venous thrombosis and embolism; Z62.810 Personal history of physical and sexual abuse in childhood
CPT/HCPCS: 36415; 80053; 80305; 80307; 82550; 82553; 84132; 84484; 85027; 86780; 93005; 93010

== ENCOUNTER 2024-12-29 13:08 | Inpatient (IN) | payer OTHER ==
[2024-12-29] MEDS ORDERED: IBUPROFEN 400 MG TABLET (FP) PO PRN (13:15)
[2024-12-29] MEDS ORDERED: NICOTINE POLACRILEX 2 MG GUM BUC PRN (13:15)
[2024-12-29] MEDS ORDERED: LOPERAMIDE HCL 2 MG CAPSULE PO PRN (13:15)
[2024-12-29] MEDS ORDERED: ACETAMINOPHEN 325 MG TABLET (FP) PO PRN (13:15)
[2024-12-29] MEDS ORDERED: MAG HYDROX/AL HYDROX/SIMETH 30 ML UNIT-DOSE CUP PO PRN (13:15)
[2024-12-29] MEDS ORDERED: guaiFENesin 600 MG TABLET.ER (FP) PO PRN (13:15)
[2024-12-29] MEDS ORDERED: IBUPROFEN 600 MG TABLET (FP) PO PRN (13:15)
[2024-12-29] MEDS ORDERED: BENZONATATE 200 MG CAPSULE PO PRN (13:15)
[2024-12-29] MEDS ORDERED: BENZOCAINE/MENTHOL (CHLORASEPTIC ) LOZENGE MM PRN (13:15)
[2024-12-29 15:19] VITALS: BMI 25.8
[2024-12-29] MEDS: ERGOCALCIFEROL (VIT D2) 50,000 UNIT (1.25 MG) CAPSULE PO SCH (15:44)
[2024-12-29] MEDS: GABAPENTIN 300 MG CAPSULE PO SCH (21:13)
[2024-12-29] MEDS: busPIRone HCL 5 MG TABLET PO SCH (21:13)
[2024-12-29] MEDS: MELATONIN 5 MG TABLETS PO SCH (21:13)
[2024-12-29] MEDS: risperiDONE 1 MG TABLET PO SCH (21:13)
[2024-12-29] MEDS: traZODone HCL 100 MG TABLET (FP) PO SCH (21:13)
[2024-12-29] MEDS: METHOCARBAMOL 500 MG TABLET PO PRN (21:13)
[2024-12-29] MEDS: FERROUS SO4 325 MG TABLET (FP) PO SCH (21:13)
[2024-12-29] MEDS: THIAMINE 100 MG TABLET PO SCH (21:13)
[2024-12-30] MEDS: PRENATAL VITAMINS W/ FOLIC ACID TABLET (FP) PO SCH (06:28)
[2024-12-30] MEDS: NICOTINE 7 MG/24 HOURS TOPICAL PATCH TD SCH (06:29)
[2024-12-30] MEDS: TAMSULOSIN HCL 0.4 MG CAP PO SCH (09:33)
[2024-12-30] MEDS: HYDROCHLOROTHIAZIDE 25 MG TABLET (FP) PO SCH (09:33)
[2024-12-30] MEDS: RAMIPRIL 2.5 MG CAPSULE PO SCH (09:34)
[2024-12-30] MEDS: amLODIPine BESYLATE 5 MG TABLET (FP) PO SCH (09:34)
[2024-12-30] MEDS: FOLIC ACID 1 MG TABLET (FP) PO SCH (09:34)
[2024-12-30] MEDS: ASPIRIN 81 MG CHEWABLE TABLETS PO SCH (09:34)
[2024-12-30] MEDS: ASCORBIC ACID 500 MG TABLET (FP) PO SCH (09:35)
[2024-12-30] MEDS: metoPROLOL SUCCINATE 25 MG TAB.SR.24H (FP) PO SCH (11:30)
[2024-12-30] MEDS: BENZTROPINE MESYLATE 1 MG TABLET PO SCH (12:09)
[2024-12-31] MEDS: hydrOXYzine PAMOATE 25 MG CAPSULE (FP) PO PRN (06:13)
[2025-01-02] MEDS: MAGNESIUM HYDROX 2400MG/30ML ORAL SUSPENSION 30 ML CUP PO PRN (09:37)
[2025-01-02] MEDS: POLYETHYLENE GLYCOL (HEALTHYLAX) 3350 17 GM PACKET PO PRN (15:59)
[2025-01-04 06:33] VITALS: BP 149/64; PULSE 76; RESP 16; TEMP 97.1
== END 2025-01-04 10:45 | disposition home or self-care (01) | DRG 772 ==
LOC: YASAS 13:08 → Y5N 13:09
PROVIDERS: ADMIT Psychiatry & Neurology Pain Medicine; ATTEND Allergy & Immunology
PROC: HZ42ZZZ Group Counseling for Substance Abuse Treatment, Cognitive-Behavioral (ICD-10-PCS; principal; 2024-12-29)
DX: F10.20 Alcohol dependence, uncomplicated (principal); F14.20 Cocaine dependence, uncomplicated; F12.20 Cannabis dependence, uncomplicated; F25.9 Schizoaffective disorder, unspecified; I10 Essential (primary) hypertension; N40.0 Benign prostatic hyperplasia without lower urinary tract symptoms
CPT/HCPCS: 36415; 86803

== ENCOUNTER 2025-03-10 11:20 | Inpatient (IN) | payer OTHER ==
[2025-03-10 11:44] VITALS: BMI 25.1
[2025-03-10] MEDS ORDERED: BENZOCAINE/MENTHOL (CHLORASEPTIC ) LOZENGE MM PRN (12:01)
[2025-03-10] MEDS ORDERED: IBUPROFEN 600 MG TABLET (FP) PO PRN (12:01)
[2025-03-10] MEDS ORDERED: BENZONATATE 200 MG CAPSULE PO PRN (12:01)
[2025-03-10] MEDS ORDERED: ONDANSETRON *ODT* 4 MG TABLET SL PRN (12:01)
[2025-03-10] MEDS ORDERED: NICOTINE POLACRILEX 2 MG GUM BUC PRN (12:01)
[2025-03-10] MEDS ORDERED: MAGNESIUM HYDROX 2400MG/30ML ORAL SUSPENSION 30 ML CUP PO PRN (12:01)
[2025-03-10] MEDS ORDERED: POLYETHYLENE GLYCOL (HEALTHYLAX) 3350 17 GM PACKET PO PRN (12:01)
[2025-03-10] MEDS ORDERED: LOPERAMIDE HCL 2 MG CAPSULE PO PRN (12:01)
[2025-03-10] MEDS ORDERED: BISMUTH SUBSALICYLATE 262 MG/15 ML BTL PO PRN (12:01)
[2025-03-10] MEDS ORDERED: ACETAMINOPHEN 325 MG TABLET (FP) PO PRN (12:01)
[2025-03-10] MEDS ORDERED: NALOXONE (NARCAN) HCL 4 MG/0.1 ML SPRAY NS PRN (12:01)
[2025-03-10] MEDS ORDERED: MAG HYDROX/AL HYDROX/SIMETH 30 ML UNIT-DOSE CUP PO PRN (12:01)
[2025-03-10] MEDS ORDERED: IBUPROFEN 400 MG TABLET (FP) PO PRN (12:01)
[2025-03-10] MEDS ORDERED: DICYCLOMINE HCL 10 MG CAPSULE PO PRN (12:01)
[2025-03-10] MEDS ORDERED: guaiFENesin 600 MG TABLET.ER (FP) PO PRN (12:01)
[2025-03-10] MEDS ORDERED: hydrOXYzine PAMOATE 25 MG CAPSULE (FP) PO ONE (15:28)
[2025-03-10] MEDS: hydrOXYzine PAMOATE 25 MG CAPSULE (FP) PO PRN (15:29)
[2025-03-10] MEDS: NALTREXONE HCL 50 MG TABLET PO ONE (15:29)
[2025-03-10] MEDS: GABAPENTIN 300 MG CAPSULE PO SCH (22:24)
[2025-03-10] MEDS: FERROUS SO4 325 MG TABLET (FP) PO SCH (22:24)
[2025-03-10] MEDS: THIAMINE 100 MG TABLET PO SCH (22:24)
[2025-03-10] MEDS: MELATONIN 5 MG TABLETS PO SCH (22:24)
[2025-03-11] MEDS: TAMSULOSIN HCL 0.4 MG CAP PO SCH (07:48)
[2025-03-11] MEDS: HYDROCHLOROTHIAZIDE 25 MG TABLET (FP) PO SCH (10:13)
[2025-03-11] MEDS: amLODIPine BESYLATE 5 MG TABLET (FP) PO SCH (10:17)
[2025-03-11] MEDS: NALTREXONE HCL 50 MG TABLET PO ONE (10:17)
[2025-03-11] MEDS: ASPIRIN 81 MG CHEWABLE TABLETS PO SCH (10:17)
[2025-03-11] MEDS: PRENATAL VITAMINS W/ FOLIC ACID TABLET (FP) PO SCH (10:18)
[2025-03-11 11:24] LABS: MCHC 33.4 g/dl (32.3-36.5); MEAN CELL VOLUME 90.7 fl (79.0-92.2); MEAN PLT VOLUME 11.4 fl (9.4-12.4); RDW 15.2 % (12.2-16.1)
[2025-03-11 11:38] LABS: CO2 29.0 mmol/L (21-32); GLUCOSE,RANDOM 116.0 mg/dL (74-106)
[2025-03-11 11:41] LABS: CREATININE 0.8 mg/dL (0.55-1.3); SGOT/AST 29.0 U/L (15-37); SGPT/ALT 30.0 U/L (13-61)
[2025-03-11 11:42] LABS: TOT PROT 6.5 g/dl (6.4-8.2)
[2025-03-11 11:43] LABS: ALK PHOS 50.0 U/L (45-117)
[2025-03-11] MEDS: RAMIPRIL 2.5 MG CAPSULE PO SCH (13:22)
[2025-03-11] MEDS: BENZTROPINE MESYLATE 1 MG TABLET PO SCH (22:13)
[2025-03-12] MEDS: NALTREXONE MICROSPHERES (VIVITROL) 380 MG DISP.SYRIN IM ONE (11:44)
[2025-03-12] MEDS: POTASSIUM CHLORIDE ORAL LIQUID 20 MEQ/15 ML PO ONE (12:11)
[2025-03-12] MEDS: NICOTINE 14 MG/24 HOURS TOPICAL PATCH TD SCH (12:44)
[2025-03-13] MEDS: METHOCARBAMOL 500 MG TABLET PO PRN (22:10)
[2025-03-15 06:28] VITALS: RESP 16
[2025-03-15 08:40] VITALS: BP 142/87; PULSE 85; TEMP 98.1
== END 2025-03-15 10:44 | disposition home or self-care (01) | DRG 774 ==
LOC: YASAS 11:20 → SUATTDRO 11:20 → Y3N 15:42
PROVIDERS: ADMIT Allergy & Immunology; ATTEND Allergy & Immunology
PROC: HZ2ZZZZ Detoxification Services for Substance Abuse Treatment (ICD-10-PCS; principal; 2025-03-10)
DX: F10.230 Alcohol dependence with withdrawal, uncomplicated (principal); D50.9 Iron deficiency anemia, unspecified; N40.0 Benign prostatic hyperplasia without lower urinary tract symptoms; F12.20 Cannabis dependence, uncomplicated; F14.20 Cocaine dependence, uncomplicated; I10 Essential (primary) hypertension; G47.00 Insomnia, unspecified; F17.210 Nicotine dependence, cigarettes, uncomplicated; F25.1 Schizoaffective disorder, depressive type
CPT/HCPCS: 36415; 80053; 80305; 80307; 84132; 85027; 86780; 93005; 93010; J2315